=== PATIENT | male | born 1945 | race Caucasian/White ===

== ENCOUNTER 2016-04-05 12:17 | Emergency (ER) | payer MEDICARE ==
[2016-04-05 12:31] LABS: BASOPHIL % 0.3 % (0.0-0.4); Lymphocytes % 22.7 % (24.0-44.0); Mean Corpuscular Hemoglobin 27.9 pg (26-32); Mean Platelet Volume 13.7 fl (6-9.5); Platelet Count 135 K/mm3 (150-450); Red Blood Count 4.51 M/mm3 (4.1-5.6); White Blood Count 11.7 K/mm3 (4.0-10.5)
--- NOTE | 2016-04-05 12:40 | ERPHSYRPT ---
- History of Present Illness Time Seen by Provider: 04/05/16 12:19 Source: patient Patient Subjective Stated Complaint: AT DR CASTILLO'S OFFICE AND BROUGHT TO ER FOR C/O WEAKNESS AND ACHING ALL OVER. SYMPTOMS STARTED THIS AM Triage Nursing Assessment: TO ROOM PER W/C, SKIN PALE, W/D. ASSISTED TO COT PER TWO PEOPLE. PATIENT WEAK, UNSTEADY ON FEET. RESP NONLABORED. Physician History: CC: weakness Hx: 70 y/o patient was here to see Dr Garcia in OP clinic. While waiting he complained to staff of headache, neck pain, general weakness, body aches, pain all over. They felt he was not as alert and in and out of consciousness so brought him to ER. Pt has body aches and pain. Maybe fever. Chronic bowel and urine problems. He was recently admitted for chest pain. He has CKD. No chest pains today. Not particularly short of breath. He lives at home with his . He feels general weakness and malaise. Focuses on headache and neck pain over and over. Timing/Duration: today Severity: moderate, severe Allergies/Adverse Reactions: morphine Adverse Reaction (Severe, Verified 04/05/16 13:06) hallucinations Home Medications: Carvedilol 3.125 mg [Coreg 3.125 MG] 6.25 mg PO BID 03/13/13 [History] Isosorbide Mononitrate [Imdur] 30 mg PO DAILY 03/13/13 [History] Metformin HCl 500 mg [Glucophage 500 MG] 500 mg PO BID 03/13/13 [History] Nitroglycerin 0.4 mg PO DAILY PRN 03/13/13 [History] Aspirin 325 mg PO DAILY 04/14/13 [History] Lisinopril 20 mg [Zestril 20 MG] 40 mg PO DAILY 04/25/13 [History] Clopidogrel Bisulfate 75 mg [PLAVIX 75 MG Tablet] 75 mg PO DAILY 10/29/14 [History] Hydrochlorothiazide 25 mg [hydroDIURIL 25 MG] 25 mg PO DAILY 10/29/14 [ History] Atorvastatin Calcium 80 mg PO DAILY 02/16/15 [History] Ferrous Sulfate 325 mg PO DAILY 02/16/15 [History] Paroxetine HCl [Paxil] 10 mg PO DAILY 02/16/15 [History] Albuterol 2.5 mg/3 ml Neb [Proventil 2.5 mg/3 ml Neb] 2.5 mg IH Q2H/PRN PRN 05/14/15 [History] Amlodipine Besylate 5 mg [Norvasc 5 mg] 5 mg PO DAILY 05/14/15 [History] Folic Acid/Vitamin B Comp W-C [Tracey-Yossi Tablet] 1 mg PO DAILY 05/14/15 [History ] Furosemide 20 mg [Lasix 20 mg] 20 mg PO BID 05/14/15 [History] Glipizide 10 mg [Glucotrol 10 MG] 10 mg PO BID 05/14/15 [History] Hydrocodone/APAP 10/325 mg [[place] 10/325 MG Tablet] 10 mg PO QID 05/14/15 [History] Insulin Glargine [Lantus Insulin] 18 unit SQ HS 02/25/16 [History] Insulin Lispro [Humalog] 10 unit SQ BID 02/25/16 [History] Magnesium Oxide [Magnesium] 400 mg PO BID 02/25/16 [History] Hx Tetanus, Diphtheria Vaccination/Date Given: No Hx Influenza Vaccination/Date Given: Yes Hx Pneumococcal Vaccination/Date Given: Yes - Review of Systems Constitutional: Fatigue, Lethargy, Malaise, Weakness, No Fever, No Chills Eyes: No Symptoms, Vision Changes Ears, Nose, & Throat: No Symptoms Respiratory: No Cough, No Dyspnea Cardiac: No Chest Pain Abdominal/Gastrointestinal: No Abdominal Pain Genitourinary Symptoms: Frequency, No Dysuria Musculoskeletal: Joint Pain, Myalgias, No Fall, No Injury Skin: No Rash Neurological: Headache, No Dizziness, No Focal Weakness, No Parasthesia, No Seizure All Other Systems: Reviewed and Negative - Past Medical History Pertinent Past Medical History: Yes Neurological History: Peripheral Neuropathy ENT History: No Pertinent History Cardiac History: Angina, Congestive Heart Failure, Coronary Artery Disease, Hypertension, Myocardial Infarction ([place]) Respiratory History: Bronchitis, Emphysema, Pneumonia, Other Endocrine Medical History: Diabetes Type II Musculoskeletal History: Arthritis GI Medical History: No Pertinent History History: Renal Disease Psycho-Social History: Depression Male Reproductive Disorders: No Pertinent History Other Medical History: Hx vision problems. Hx chronic kidney disease. DM with uncontrolled sugars - Past Surgical History Past Surgical History: Yes Neuro Surgical History: No Pertinent History Cardiac: CABG, Cardiac Catheterization, Cardiac Stent Respiratory: No Pertinent History Gastrointestinal: Cholecystectomy Genitourinary: No Pertinent History Musculoskeletal: Other Male Surgical History: No Pertinent History Other Surgical History: BILATERAL CAROTID. 5 cardiac stents, hand surg - Social History Smoking Status: Former smoker How long have you smoked: 40 years Exposure to second hand smoke: No Drug Use: none Patient Lives Alone: No - Nursing Vital Signs Nursing Vital Signs: Initial Vital Signs Temperature 97.8 F Temperature Source Rectal Pulse Rate 64 Respiratory Rate 18 Blood Pressure [Right Arm] 111/50 Pain Intensity 9 - Physical Exam General Appearance: alert, obese, other (lethargic and sallow appearance) Eye Exam: PERRL/EOMI Ears, Nose, Throat Exam: moist mucous membranes Neck Exam: supple Respiratory Exam: diminished breath sounds, No respiratory distress Cardiovascular Exam: regular rate/rhythm, bradycardia Gastrointestinal/Abdomen Exam: soft, No tenderness, No distention, No mass, No guarding Male Genitalia Exam: normal genitalia Back Exam: normal inspection Extremity Exam: pedal edema Neurologic Exam: alert, oriented x 3, cooperative, No motor deficits Skin Exam: warm, other (sallow appearance), No rash SpO2 Interpretation: normal SpO2: 96 Oxygen Delivery: Room Air - Course Nursing assessment & vital signs reviewed: Yes EKG Interpreted by Me: RATE (61), Sinus Rhythm, Left [place] Deviation, Right Bundle Branch Block (unchanged from prior) - Radiology Exams cxr X-ray Interpretation: Discussed w/ radiologist, Negative - CT Exams head,cervical CT Interpretation: Negative, Tele-radiologist Report Ordered Tests: Active Orders 24 hr Category Date Time Status Accucheck STAT Care 04/05/16 12:22 Active Codifier STAT Care 04/05/16 12:21 Active Clean Catch Urine Specimen STAT Care 04/05/16 12:19 Active EKG-ER Only STAT Care 04/05/16 12:19 Active IV Insertion STAT Care 04/05/16 12:19 Active Rectal Temperature STAT Care 04/05/16 12:20 Active cath [Cath for Specimen-Straight] STAT Care 04/05/16 14:31 Active CERVICAL SPINE WO CONTRAST [CT] Stat Exams 04/05/16 12:21 Completed CHEST 1 VIEW (PORTABLE) Stat Exams 04/05/16 12:19 Completed HEAD WITHOUT CONTRAST [CT] Stat Exams 04/05/16 12:20 Completed CBC W DIFF Stat Lab 04/05/16 12:20 Completed CMP Stat Lab 04/05/16 12:20 Completed Lactic Acid Urgent Lab 04/05/16 12:40 Completed PROTIME WITH INR Stat Lab 04/05/16 12:20 Completed PTT Stat Lab 04/05/16 12:20 Completed TROPONIN Stat Lab 04/05/16 12:20 Completed UA Stat Lab 04/05/16 12:19 Ordered VENOUS BLOOD GAS Urgent Lab 04/05/16 12:40 Completed Medication Summary Generic Name Dose Route Start Last Admin Trade Name Freq PRN Reason Stop Dose Admin Sodium Chloride 1,000 mls @ 100 mls/hr 04/05/16 14:45 04/05/16 14:37 Sodium Chloride 0.9% 1000 Ml IV 05/05/16 14:44 100 mls/hr .Q10H CHRISTI Administration Discontinued Medications Generic Name Dose Route Start Last Admin Trade Name Freq PRN Reason Stop Dose Admin Sodium Chloride Confirm 04/05/16 14:35 Sodium Chloride 0.9% 1000 Ml Administered 04/05/16 14:36 Dose 1,000 mls @ ud .ROUTE .STK-MED ONE Insulin Aspart 10 unit 04/05/16 14:40 04/05/16 14:49 Novolog Insulin SQ 04/05/16 14:41 10 unit STAT ONE Administration Insulin Aspart Confirm 04/05/16 14:45 Novolog Insulin Administered 04/05/16 14:46 Dose 10 unit .ROUTE .STK-MED ONE Lab/Rad Data: Laboratory Result Diagrams 04/05/16 12:20 04/05/16 12:20 Laboratory Results 04/05/16 04/05/16 04/05/16 Range/Units 12:40 12:40 12:20 WBC (4.0-10.5) K/mm3 RBC (4.1-5.6) M/mm3 Hgb (12.5-18.0) gm/dl Hct (42-50) % MCV (78-100) fl MCH (26-32) pg MCHC (32-36) g/dl RDW (11.5-14.0) % Plt Count (150-450) K/mm3 MPV (6-9.5) fl Gran % (36.0-66.0) % Lymphocytes % (24.0-44.0) % Monocytes % (0.0-12.0) % Eosinophils % (0.00-5.0) % Basophils % (0.0-0.4) % Basophils # (0-0.4) INR 0.97 (0.8-3.0) PTT 27.4 (24.1-36.1) SECONDS VBG pH 7.32 (7.32-7.42) VBG pCO2 at Pat Temp 67 H* (42-55) mm/Hg VBG pO2 at Pat Temp 22 L (25-40) mm/Hg VBG HCO3 34.5 H* (22-28) meq/L VBG O2 Sat (Lauro) 31.5 L (95-100) VBG Base Excess 6.3 H (-2.0-2.0) VBG Hemoglobin 12.7 VBG Carboxyhemoglobin 0.9 (0.0-6.9) % T HGB POC Potassium 5.3 H (3.5-5.1) Sodium (136-145) mEq/L Potassium (3.5-5.1) mEq/L Chloride (98-107) mEq/L Carbon Dioxide (21-32) mEq/L Anion Gap (5-15) MEQ/L BUN (9-20) mg/dL Creatinine (0.55-1.30) mg/dl Estimated GFR ML/MIN Glucose (70-110) MG/DL Lactic Acid 2.8 H (0.4-2.0) Calcium (8.5-10.1) mg/dL Total Bilirubin (0.2-1.0) mg/dL AST (15-37) U/L ALT (12-78) U/L Alkaline Phosphatase (46-116) U/L Troponin I (0.000-0.056) ng/ml Serum Total Protein (6.4-8.2) gm/dL Albumin (3.4-5.0) g/dL 04/05/16 04/05/16 04/05/16 Range/Units 12:20 12:20 12:20 WBC 11.7 H (4.0-10.5) K/mm3 RBC 4.51 (4.1-5.6) M/mm3 Hgb 12.6 (12.5-18.0) gm/dl Hct 40.6 L (42-50) % MCV 90.0 (78-100) fl MCH 27.9 (26-32) pg MCHC 31.0 L (32-36) g/dl RDW 15.0 H (11.5-14.0) % Plt Count 135 L (150-450) K/mm3 MPV 13.7 H (6-9.5) fl Gran % 66.0 (36.0-66.0) % Lymphocytes % 22.7 L (24.0-44.0) % Monocytes % 9.0 (0.0-12.0) % Eosinophils % 2.0 (0.00-5.0) % Basophils % 0.3 (0.0-0.4) % Basophils # 0.03 (0-0.4) INR (0.8-3.0) PTT (24.1-36.1) SECONDS VBG pH (7.32-7.42) VBG pCO2 at Pat Temp (42-55) mm/Hg VBG pO2 at Pat Temp (25-40) mm/Hg VBG HCO3 (22-28) meq/L VBG O2 Sat (Lauro) (95-100) VBG Base Excess (-2.0-2.0) VBG Hemoglobin VBG Carboxyhemoglobin (0.0-6.9) % T HGB POC Potassium (3.5-5.1) Sodium 135 L (136-145) mEq/L Potassium 5.2 H (3.5-5.1) mEq/L Chloride 97 L (98-107) mEq/L Carbon Dioxide 29.7 (21-32) mEq/L Anion Gap 13.0 (5-15) MEQ/L BUN 51 H (9-20) mg/dL Creatinine 2.19 H (0.55-1.30) mg/dl Estimated GFR 32 ML/MIN Glucose 408 H (70-110) MG/DL Lactic Acid (0.4-2.0) Calcium 8.6 (8.5-10.1) mg/dL Total Bilirubin 0.4 (0.2-1.0) mg/dL AST 17 (15-37) U/L ALT 24 (12-78) U/L Alkaline Phosphatase 124 H (46-116) U/L Troponin I 0.023 (0.000-0.056) ng/ml Serum Total Protein 7.2 (6.4-8.2) gm/dL Albumin 3.1 L (3.4-5.0) g/dL - Progress Progress Note: 04/05/16 12:40 He repeatedly complains of head and neck pain so will get CT to rule out ICH. He has body aches but no fever here. 04/05/16 14:[address] Catarino Garcia. Pt had scant urine on weinstein. He appears to be dehydrated. Sugar elevated. Dr Garcia saw pt prior to ER. He advised transfer to [facility] and he made arrangements. Counseled pt/family regarding: lab results, diagnosis, need for follow-up, rad results - Departure Time of Disposition: 14:52 Departure Disposition: Transfer Clinical Impression: Acute kidney injury, Dehydration, Hyperglycemia, Generalized weakness Condition: Fair Critical Care Time: No Referrals: MAO PURCELL [Primary Care Provider] -
[2016-04-05 12:41] LABS: VBG BASE EXCESS 6.3 (-2.0-2.0); VBG CARBOXYHEMOGLOBIN 0.9 % T HGB (0.0-6.9); VBG HCO3- 34.5 meq/L (22-28); VBG HEMOGLOBIN 12.7; VBG O2 SATURATION 31.5 (95-100); VBG POTASSIUM 5.3 (3.5-5.1); VBG pH 7.32 (7.32-7.42)
[2016-04-05 12:49] LABS: INR 0.97 (0.8-3.0); PROTIME 10.9 SECONDS (8.83-12.87)
[2016-04-05 12:51] LABS: PTT 27.4 SECONDS (24.1-36.1)
[2016-04-05 12:59] LABS: ALBUMIN 3.1 g/dL (3.4-5.0); BILIRUBIN,TOTAL 0.4 mg/dL (0.2-1.0); Carbon Dioxide 29.7 mEq/L (21-32); Potassium 5.2 mEq/L (3.5-5.1); Total Protein 7.2 gm/dL (6.4-8.2)
--- NOTE | 2016-04-05 12:59 | XRAY ---
Indication: Headache. No known injury. Multiple contiguous axial images obtained through the head without contrast. Comparison: None Age-appropriate global atrophy and minimal periventricular degenerative micro-ischemia bilaterally. 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 No acute intracranial hemorrhage, hydrocephalus, or mass effect. Bony calvarium intact. Visualized paranasal sinuses and mastoid air cells are pneumatized and clear. 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 CT DI 66.59
--- NOTE | 2016-04-05 13:06 | XRAY ---
Indication: Neck pain. No known injury. Multiple contiguous axial images obtained through the cervical spine. Sagittal and coronal reformatted images obtained. Comparison: None Axial images negative for acute fracture, suspicious bony lesions, or spinal canal stenosis. Mild bilateral degenerative facet hypertrophy greatest at the left C4-C5 level. Sagittal and coronal reformatted images demonstrates mild lordotic straightening, positional versus paraspinal muscular spasm. Minimal C5-C6 disc space narrowing. No acute compression fracture, subluxation, or jumped facet. Normal-appearing craniocervical junction. Visualized noncontrasted soft tissues demonstrates minimal carotid calcifications and previous carotid endarterectomy bilaterally. Thyroid gland also heterogeneous with left lobe calcifications and right lobe enlargement. Base of the brain and lung apices unremarkable. Impression: 1. Lordotic straightening, positional versus paraspinal spasm. Negative for acute fracture/subluxation. 2. Mild degenerative changes. 3. Incidental heterogeneous thyroid gland and right lobe enlargement that should be correlated clinically. Outpatient thyroid sonogram may yield further information. CT DI 134.47
--- NOTE | 2016-04-05 13:08 | XRAY ---
Indication: Weakness. Comparison: February 25, 2016 Portable apical lordotic chest remains clear again with previous CABG surgery. Heart is not enlarged. Bony thorax intact again with mild degenerative changes. No new/acute findings. Impression: Stable nonacute chest with chronic features.
[2016-04-05] MEDS ORDERED: Sodium Chloride 0.9% 1000 ML 1,000 ML ONE (14:35)
[2016-04-05] MEDS ORDERED: NovoLOG Insulin SQ ONE (14:40)
[2016-04-05] MEDS ORDERED: Sodium Chloride 0.9% 1000 ML 1,000 ML IV SCH (14:45)
[2016-04-05] MEDS ORDERED: NovoLOG Insulin ONE (14:45)
[2016-04-05 14:51] VITALS: BP 100/35; PULSE 62
[2016-04-05 14:52] VITALS: O2SAT 96
[2016-04-05 14:53] LABS: Collection Type CATH
[2016-04-05 14:54] LABS: Bacteria FEW /HPF (NEGATIVE); COMPLETE URINE MICROSCOPIC? YES; Epithelial Cells RARE /HPF (FEW); WBC 0-2 /HPF (0-5)
== END 2016-04-05 15:51 | disposition short-term general hospital (02) ==
LOC: ED 12:17
DX: N17.9 Acute kidney failure, unspecified (principal); E86.0 Dehydration; R73.9 Hyperglycemia, unspecified; R53.1 Weakness; Z79.899 Other long term (current) drug therapy; Z79.84 Long term (current) use of oral hypoglycemic drugs; Z79.4 Long term (current) use of insulin; I50.9 Heart failure, unspecified; I25.10 Atherosclerotic heart disease of native coronary artery without angina pectoris; I10 Essential (primary) hypertension; I25.2 Old myocardial infarction; E11.9 Type 2 diabetes mellitus without complications
CPT/HCPCS: 36000; 36415; 70450; 71010; 72125; 80053; 81000; 82805; 82962; 83605; 84484; 85025; 85610; 85730; 87631; 93005; 93041; 96360; 96372; 99284; 99285; P9612

== ENCOUNTER 2016-05-26 09:22 | Emergency (ER) | payer MEDICARE ==
--- NOTE | 2016-05-26 09:57 | ERPHSYRPT ---
- History of Present Illness Time Seen by Provider: 05/26/16 09:40 Source: patient Exam Limitations: no limitations Patient Subjective Stated Complaint: PT STATES THAT HE HAS A "KNOT" ON HIS "PRIVATE PARTS". STATES "ITS BEEN THERE A FEW DAYS BUT I FIGURED IT WOULD GO AWAY" BUT STATES NOW ITS MAKING HIM NAUSEATED. Triage Nursing Assessment: PT ALERT WARM AND DRY RRESP EASY NON LABORED PT AMBUALTED FROM WHEELCHAIR TO BED WITHOUT DIFFICULTY. WOUND NOTED TO RIGHT TESTICLE AREA NO REDNESS OR DRAINAGE NOTED. Timing/Duration: day(s) (2) Activites at Onset: none Quality: sharpness Onset Location: scrotal Pain Radiation: suprapubic Severity of Pain-Max: moderate Severity of Pain-Current: moderate Modifying Factors: Improves With: urinating (incontinence nocturnal) Associated Symptoms: abdominal pain (suprapubic), nausea Sexual intercourse history: non-contributory Allergies/Adverse Reactions: morphine Adverse Reaction (Severe, Verified 04/05/16 13:06) hallucinations Home Medications: Carvedilol 3.125 mg [Coreg 3.125 MG] 12.5 mg PO BID 03/13/13 [History] Isosorbide Mononitrate [Imdur] 30 mg PO DAILY 03/13/13 [History] Metformin HCl 500 mg [Glucophage 500 MG] 500 mg PO BID 03/13/13 [History] Nitroglycerin 0.4 mg PO DAILY PRN 03/13/13 [History] Aspirin 325 mg PO DAILY 04/14/13 [History] Lisinopril 20 mg [Zestril 20 MG] 20 mg PO DAILY 04/25/13 [History] Clopidogrel Bisulfate 75 mg [PLAVIX 75 MG Tablet] 75 mg PO DAILY 10/29/14 [History] Hydrochlorothiazide 25 mg [hydroDIURIL 25 MG] 25 mg PO DAILY 10/29/14 [ History] Atorvastatin Calcium 80 mg PO DAILY 02/16/15 [History] Ferrous Sulfate 325 mg PO BID 02/16/15 [History] Paroxetine HCl [Paxil] 20 mg PO DAILY 02/16/15 [History] Albuterol 2.5 mg/3 ml Neb [Proventil 2.5 mg/3 ml Neb] 2.5 mg IH Q2H/PRN PRN 05/14/15 [History] Amlodipine Besylate 5 mg [Norvasc 5 mg] 2.5 mg PO DAILY 05/14/15 [History] Folic Acid/Vitamin B Comp W-C [Tracey-Yossi Tablet] 1 mg PO DAILY 05/14/15 [History ] Furosemide 20 mg [Lasix 20 mg] 20 mg PO BID 05/14/15 [History] Glipizide 10 mg [Glucotrol 10 MG] 10 mg PO BID 05/14/15 [History] Hydrocodone/APAP 10/325 mg [[place] 10/325 MG Tablet] 10 mg PO QID 05/14/15 [History] Insulin Glargine [Lantus Insulin] 18 unit SQ HS 02/25/16 [History] Insulin Lispro [Humalog] 10 unit SQ TID 02/25/16 [History] Magnesium Oxide [Magnesium] 400 mg PO BID 02/25/16 [History] Hx Tetanus, Diphtheria Vaccination/Date Given: Yes Hx Influenza Vaccination/Date Given: Yes Hx Pneumococcal Vaccination/Date Given: No Immunizations Up to Date: Yes - Past Medical History Pertinent Past Medical History: Yes Neurological History: Peripheral Neuropathy ENT History: No Pertinent History Cardiac History: Angina, Congestive Heart Failure, Coronary Artery Disease, Hypertension, Myocardial Infarction ([place]) Respiratory History: Bronchitis, Emphysema, Pneumonia, Other Endocrine Medical History: Diabetes Type II Musculoskeletal History: Arthritis GI Medical History: No Pertinent History History: Renal Disease Psycho-Social History: Depression Male Reproductive Disorders: No Pertinent History Other Medical History: Hx vision problems. Hx chronic kidney disease. DM with uncontrolled sugars - Past Surgical History Past Surgical History: Yes Neuro Surgical History: No Pertinent History Cardiac: CABG, Cardiac Catheterization, Cardiac Stent Respiratory: No Pertinent History Gastrointestinal: Cholecystectomy Genitourinary: No Pertinent History Musculoskeletal: Other Male Surgical History: No Pertinent History Other Surgical History: BILATERAL CAROTID. 5 cardiac stents, hand surg - Social History Smoking Status: Never smoker How long have you smoked: 40 years Exposure to second hand smoke: No Drug Use: marijuana Patient Lives Alone: No - Review of Systems Constitutional: No Symptoms Eyes: No Symptoms Ears, Nose, & Throat: No Symptoms Respiratory: No Symptoms Cardiac: No Symptoms Abdominal/Gastrointestinal: Abdominal Pain, Nausea, No Vomiting, No Diarrhea, No Constipation Genitourinary Symptoms: Dysuria, Incontinence, Other (3 cm diameter tender, firm nodule right scrotum. No erythema or pustule.) Musculoskeletal: No Symptoms Skin: No Symptoms Neurological: No Symptoms Psychological: No Symptoms Endocrine: No Symptoms Hematologic/Lymphatic: No Symptoms Immunological/Allergic: No Symptoms - Nursing Vital Signs Nursing Vital Signs: Initial Vital Signs Temperature 98.3 F Temperature Source Oral Pulse Rate 59 Respiratory Rate 18 Blood Pressure [Right Arm] 131/43 - Physical Exam General Appearance: moderate distress Eye Exam: eyes nml inspection Ears, Nose, Throat Exam: normal ENT inspection, pharynx normal Neck Exam: normal inspection, non-tender, supple, full range of motion Respiratory Exam: normal breath sounds, lungs clear Cardiovascular Exam: regular rate/rhythm, normal heart sounds, normal peripheral pulses Gastrointestinal/Abdomen Exam: soft, normal bowel sounds, tenderness (suprapubic ) Male Genital Exam: scrotal swellling (and tender nodule paratesticular on right) Extremity Exam: normal range of motion, pelvis stable, pedal edema (2+) Skin Exam: normal color, warm, dry SpO2 Interpretation: normal SpO2: 95 Oxygen Delivery: Room Air - Course Nursing assessment & vital signs reviewed: Yes - Radiology Ultrasound Exam Scrotal Ultrasound: tele radiology report ([id number] SQ nodule , possibly sebaceous cyst right scrotum. ) Ordered Tests: Active Orders 24 hr Category Date Time Status TESTICLE [US] Stat Exams 05/26/16 09:57 Completed CBC W DIFF Stat Lab 05/26/16 10:35 Completed CMP Stat Lab 05/26/16 10:35 Received NT PRO BNP Stat Lab 05/26/16 10:35 Received UA W/ MICROSCOPIC Stat Lab 05/26/16 10:15 Completed UA W/RFX UR CULTURE Stat Lab 05/26/16 10:15 Completed Lab/Rad Data: Laboratory Result Diagrams 05/26/16 10:35 Laboratory Results 05/26/16 05/26/16 Range/Units 10:35 10:15 WBC 9.1 (4.0-10.5) K/mm3 RBC 4.38 (4.1-5.6) M/mm3 Hgb 12.3 L (12.5-18.0) gm/dl Hct 39.2 L (42-50) % MCV 89.5 (78-100) fl MCH 28.0 (26-32) pg MCHC 31.4 L (32-36) g/dl RDW 14.8 H (11.5-14.0) % Plt Count 131 L (150-450) K/mm3 MPV 13.3 H (6-9.5) fl Gran % 65.2 (36.0-66.0) % Lymphocytes % 21.2 L (24.0-44.0) % Monocytes % 11.0 (0.0-12.0) % Eosinophils % 2.3 (0.00-5.0) % Basophils % 0.3 (0.0-0.4) % Basophils # 0.03 (0-0.4) Ur Collection Type VOID Urine Color YELLOW (YELLOW) Urine Appearance CLEAR (CLEAR) Urine pH 7.0 (5-6) Ur Specific [place] 1.015 (1.005-1.025) Urine Protein 30 (Negative) Urine Glucose (UA) 100 (NEGATIVE) mg/dL Urine Ketones NEGATIVE (NEGATIVE) Urine Nitrite NEGATIVE (NEGATIVE) Urine Bilirubin NEGATIVE (NEGATIVE) Urine Urobilinogen 0.2 (0-1) mg/dL Urine WBC (Auto) NEGATIVE (NEGATIVE) Urine RBC (Auto) NEGATIVE (0-5) Timi/ul Ur Epithelial Cells RARE (FEW) /HPF Specimen Received 05/26/16 1030 - Progress Progress: improved Discussed with : Other (Dr. Muniz/Urologist for F/U today or tomorrow. Office contacted for referral.) Counseled pt/family regarding: lab results, diagnosis, need for follow-up, rad results - Departure Time of Disposition: 11:00 Departure Disposition: Home Clinical Impression: Scrotal cyst Condition: Stable Critical Care Time: No Prescriptions: Ciprofloxacin HCl 500 mg [Cipro 500 MG] 1 tab PO BID #14 tablet
[2016-05-26 10:47] LABS: COMPLETE URINE MICROSCOPIC? YES; Collection Type VOID
[2016-05-26 10:53] LABS: BASOPHIL % 0.3 % (0.0-0.4); Eosinophil % 2.3 % (0.00-5.0); Granulocytes % 65.2 % (36.0-66.0); Lymphocytes % 21.2 % (24.0-44.0); Mean Cell Volume 89.5 fl (78-100); Mean Platelet Volume 13.3 fl (6-9.5); Platelet Count 131 K/mm3 (150-450); Red Blood Count 4.38 M/mm3 (4.1-5.6); Red Cell Distribution Width 14.8 % (11.5-14.0); White Blood Count 9.1 K/mm3 (4.0-10.5)
--- NOTE | 2016-05-26 10:58 | XRAY ---
Indication: Right-sided superior lateral pain and knot. Two-dimensional testicular sonogram performed. Comparison: None Both testicles homogeneous in echogenicity with normal color flow. Right testicle measures 2.4 x 2.4 x 2.4 cm and the left measures 4.0 x 1.7 x 3.0 cm. No suspicious interest/extratesticular mass or hydrocele. Left and right epididymis sonographically unremarkable. There is a subcutaneous well-circumscribed hypoechogenicity in the right scrotum measuring 8 x 10 x 11 mm without abnormal color flow or posterior shadowing. It does demonstrate some through transmission suggesting fluid component, possible sebaceous cyst. Impression: 1. Right scrotum small subcutaneous hypoechogenicity as detailed, possible sebaceous cyst. 2. Remaining testicular sonogram is negative.
[2016-05-26 11:01] LABS: Epithelial Cells RARE /HPF (FEW)
[2016-05-26 11:02] LABS: ADD URINE CULTURE? NO (NO)
[2016-05-26 11:08] VITALS: O2SAT 95
[2016-05-26] MEDS ORDERED: NORCO 5/325 MG PO ONE (11:08)
[2016-05-26] MEDS ORDERED: Cipro 500 MG PO ONE (11:10)
[2016-05-26] MEDS ORDERED: Cipro 500 MG ONE (11:19)
[2016-05-26] MEDS ORDERED: NORCO 5/325 MG ONE (11:19)
[2016-05-26 11:23] LABS: ALBUMIN 3.3 g/dL (3.4-5.0); ANION GAP 12.1 MEQ/L (5-15); BILIRUBIN,TOTAL 0.3 mg/dL (0.2-1.0); Carbon Dioxide 31.9 mEq/L (21-32); Potassium 5.1 mEq/L (3.5-5.1); Total Protein 7.5 gm/dL (6.4-8.2)
[2016-05-26] MEDS ORDERED: Lasix 40 MG PO ONE (11:28)
[2016-05-26 11:43] VITALS: BP 131/68; PULSE 62
== END 2016-05-26 11:55 | disposition home or self-care (01) ==
LOC: ED 09:22
DX: L72.9 Follicular cyst of the skin and subcutaneous tissue, unspecified (principal); Z79.84 Long term (current) use of oral hypoglycemic drugs; Z79.4 Long term (current) use of insulin; Z79.899 Other long term (current) drug therapy; R10.9 Unspecified abdominal pain; R11.0 Nausea; I50.9 Heart failure, unspecified; I25.10 Atherosclerotic heart disease of native coronary artery without angina pectoris; I10 Essential (primary) hypertension; I25.2 Old myocardial infarction; E11.9 Type 2 diabetes mellitus without complications
CPT/HCPCS: 36415; 76870; 80053; 81000; 83880; 85025; 99284; A9270-GY

== ENCOUNTER 2016-07-15 21:47 | Inpatient (IN) | payer MEDICARE ==
[2016-07-15] MEDS ORDERED: DUONEB 0.5-3 MG/3 ml Neb IH ONE ×2 (22:44→22:57)
[2016-07-15] MEDS ORDERED: Pepcid 20 MG VIAL IV ONE ×2 (22:44→22:51)
[2016-07-15] MEDS ORDERED: TYLENOL 325 MG PO ONE (22:45)
[2016-07-15] MEDS ORDERED: solu-MEDROL 125 MG IV ONE (22:45)
--- NOTE | 2016-07-15 22:50 | ERPHSYRPT ---
- History of Present Illness Time Seen by Provider: 07/15/16 22:31 Source: patient, family, EMS Patient Subjective Stated Complaint: pt states he has been sob for about a week. states he thinks he has pneumonia Triage Nursing Assessment: pt alert and oriented, answers questions approp. respirations nonlabored. lungs sounds diminished. sinus rhythm on monitor at 64. Physician History: CC: cough Hx: 71 y/o patient of Dr Rouse with hx of DM, COPD, heart disease. He has increasing cough, shortness of breath, malaise over the past week. Sweating at night. Now has some right and left abdominal pains. Constipation and some rectal pains. Quit smoking 5 years ago. Shortness of breath has worsened so he came to ER. Timing/Duration: week(s) (1) Allergies/Adverse Reactions: morphine Adverse Reaction (Severe, Verified 04/05/16 13:06) hallucinations Home Medications: Carvedilol 3.125 mg [Coreg 3.125 MG] 12.5 mg PO BID 03/13/13 [History] Isosorbide Mononitrate [Imdur] 30 mg PO DAILY 03/13/13 [History] Nitroglycerin 0.4 mg PO UD PRN 03/13/13 [History] Aspirin 325 mg PO DAILY 04/14/13 [History] Lisinopril 20 mg [Zestril 20 MG] 40 mg PO DAILY 04/25/13 [History] Clopidogrel Bisulfate 75 mg [PLAVIX 75 MG Tablet] 75 mg PO DAILY 10/29/14 [History] Hydrochlorothiazide 25 mg [hydroDIURIL 25 MG] 25 mg PO DAILY 10/29/14 [ History] Atorvastatin Calcium 80 mg PO DAILY 02/16/15 [History] Albuterol 2.5 mg/3 ml Neb [Proventil 2.5 mg/3 ml Neb] 2.5 mg IH Q2H/PRN PRN 05/14/15 [History] Amlodipine Besylate 5 mg [Norvasc 5 mg] 5 mg PO DAILY 05/14/15 [History] Furosemide 20 mg [Lasix 20 mg] 20 mg PO BID 05/14/15 [History] Hydrocodone/APAP 10/325 mg [Marina 10/325 MG Tablet] 10 mg PO QID PRN 05/13 [History] Insulin Lispro [Humalog] 10 unit SQ TID 02/25/16 [History] Magnesium Oxide [Magnesium] 400 mg PO BID 02/25/16 [History] Tamsulosin HCl 0.4 mg [Flomax 0.4 MG] 0.4 mg PO DAILY 07/15/16 [History] Hx Tetanus, Diphtheria Vaccination/Date Given: Yes Hx Influenza Vaccination/Date Given: Yes Hx Pneumococcal Vaccination/Date Given: No Immunizations Up to Date: Yes - Review of Systems Constitutional: Chills, Fatigue, Malaise, Weakness, No Fever Eyes: No Symptoms Ears, Nose, & Throat: No Symptoms Respiratory: Cough, Dyspnea, Wheezing Cardiac: No Chest Pain Abdominal/Gastrointestinal: Abdominal Pain, Constipation Genitourinary Symptoms: No Dysuria Musculoskeletal: No Back Pain Skin: No Rash Neurological: Headache, No Dizziness, No Focal Weakness, No Parasthesia All Other Systems: Reviewed and Negative - Past Medical History Pertinent Past Medical History: Yes Neurological History: Peripheral Neuropathy ENT History: No Pertinent History Cardiac History: Angina, Congestive Heart Failure, Coronary Artery Disease, Hypertension, Myocardial Infarction ([place]) Respiratory History: Bronchitis, COPD, Emphysema, Pneumonia, Other Endocrine Medical History: Diabetes Type II Musculoskeletal History: Arthritis GI Medical History: No Pertinent History History: Renal Disease Psycho-Social History: Depression Male Reproductive Disorders: No Pertinent History Other Medical History: Hx vision problems. Hx chronic kidney disease. DM with uncontrolled sugars - Past Surgical History Past Surgical History: Yes Neuro Surgical History: No Pertinent History Cardiac: CABG, Cardiac Catheterization, Cardiac Stent Respiratory: No Pertinent History Gastrointestinal: Cholecystectomy Genitourinary: No Pertinent History Musculoskeletal: Other Male Surgical History: No Pertinent History Other Surgical History: BILATERAL CAROTID. 5 cardiac stents, hand surg - Social History Smoking Status: Former smoker How long have you smoked: 40 years Exposure to second hand smoke: No Drug Use: none Patient Lives Alone: No - Nursing Vital Signs Nursing Vital Signs: Initial Vital Signs Temperature 98.3 F Temperature Source Oral Pulse Rate 57 Respiratory Rate 17 Blood Pressure [Left Arm] 114/53 Pain Intensity 4 - Physical Exam General Appearance: alert, obese, other (pleasant man) Eye Exam: PERRL/EOMI Ears, Nose, Throat Exam: dry mucous membranes Neck Exam: normal inspection, supple Respiratory Exam: diminished breath sounds, wheezing, No respiratory distress Cardiovascular Exam: regular rate/rhythm, No murmur Gastrointestinal/Abdomen Exam: soft, No tenderness, No distention Male Genitalia Exam: normal genitalia Back Exam: normal inspection, normal range of motion Extremity Exam: pedal edema, No calf tenderness Neurologic Exam: alert, oriented x 3, cooperative, sensation nml, No motor deficits Skin Exam: warm, dry, No rash SpO2 Interpretation: normal SpO2: 97 Oxygen Delivery: Nasal Cannula - Course Nursing assessment & vital signs reviewed: Yes EKG Interpreted by Me: RATE (59), Sinus Shree, NORMAL AXIS, NORMAL INTERVALS ( QTc 426), Right Bundle Branch Block - Radiology Exams cxr X-ray Interpretation: Reviewed by me (CM, post sternotomy) - CT Exams abd/pelvis CT Interpretation: Tele-radiologist Report (no acute) Ordered Tests: Active Orders 24 hr Category Date Time Status Clinical Auditor STAT Care 07/15/16 22:44 Active Clean Catch Urine Specimen STAT Care 07/15/16 22:44 Active EKG-ER Only STAT Care 07/15/16 22:44 Active IV Insertion STAT Care 07/15/16 22:44 Active NPO (ED) STAT Care 07/15/16 22:44 Active Oxygen-ED Only NASAL CANNULA 2 lpm Care 07/15/16 22:44 Active Pulse Oximetry (ED) STAT Care 07/15/16 22:44 Active ABDOMEN AND PELVIS W/0 CONTRAS [CT] Stat Exams 07/15/16 22:46 Taken CHEST 1 VIEW (PORTABLE) Stat Exams 07/15/16 22:45 Taken BLOOD CULTURE Stat Lab 07/15/16 23:04 Received CBC W DIFF Stat Lab 07/15/16 22:50 Completed CMP Stat Lab 07/15/16 22:50 Completed Lactic Acid Urgent Lab 07/15/16 23:00 Completed UA Stat Lab 07/15/16 22:45 Ordered VENOUS BLOOD GAS Urgent Lab 07/15/16 23:00 Completed Respiratory Nebulizer STAT RT 07/15/16 22:45 Completed Medication Summary Discontinued Medications Generic Name Dose Route Start Last Admin Trade Name Freq PRN Reason Stop Dose Admin Acetaminophen 650 mg 07/15/16 22:45 07/15/16 22:56 Tylenol 325 Mg PO 07/15/16 22:46 650 mg STAT ONE Administration Acetaminophen Confirm 07/15/16 22:51 Tylenol 325 Mg Administered 07/15/16 22:52 Dose 650 mg .ROUTE .STK-MED ONE Albuterol/Ipratropium 3 ml 07/15/16 22:44 07/15/16 22:59 Duoneb 0.5-3 Mg/3 Ml Neb IH 07/15/16 22:45 3 ml STAT ONE Administration Albuterol/Ipratropium Confirm 07/15/16 22:57 Duoneb 0.5-3 Mg/3 Ml Neb Administered 07/15/16 22:58 Dose 3 ml IH .STK-MED ONE Famotidine 20 mg 07/15/16 22:44 07/15/16 22:56 Pepcid 20 Mg Vial IV 07/15/16 22:45 20 mg STAT ONE Administration Famotidine Confirm 07/15/16 22:51 Pepcid 20 Mg Vial Administered 07/15/16 22:52 Dose 20 mg IV .STK-MED ONE Ceftriaxone Sodium/Dextrose 1 g in 50 mls @ 100 mls/hr 07/16/16 00:25 00:31 Rocephin 1 Gm-D5w 50 Ml Bag IV 07/16/16 00:54 100 mls/hr STAT ONE Administration Ceftriaxone Sodium/Dextrose Confirm 07/16/16 00:30 Rocephin 1 Gm-D5w 50 Ml Bag Administered 07/16/16 00:31 Dose 1 g in 50 mls @ ud IV .STK-MED ONE Methylprednisolone Sodium Succinate 125 mg 07/15/16 22:45 07/15/16 22:56 Solu-Medrol 125 Mg IV 07/15/16 22:46 125 mg STAT ONE Administration Methylprednisolone Sodium Succinate Confirm 07/15/16 22:51 Solu-Medrol 125 Mg Administered 07/15/16 22:52 Dose 125 mg .ROUTE .STK-MED ONE Lab/Rad Data: Laboratory Result Diagrams 07/15/16 22:50 07/15/16 22:50 Laboratory Results 07/15/16 07/15/16 07/15/16 Range/Units 23:00 22:50 22:50 WBC 11.7 H (4.0-10.5) K/mm3 RBC 4.23 (4.1-5.6) M/mm3 Hgb 12.0 L (12.5-18.0) gm/dl Hct 38.1 L (42-50) % MCV 90.1 (78-100) fl MCH 28.3 (26-32) pg MCHC 31.5 L (32-36) g/dl RDW 14.9 H (11.5-14.0) % Plt Count 142 L (150-450) K/mm3 MPV 13.6 H (6-9.5) fl Gran % 73.6 H (36.0-66.0) % Lymphocytes % 12.6 L (24.0-44.0) % Monocytes % 12.5 H (0.0-12.0) % Eosinophils % 1.0 (0.00-5.0) % Basophils % 0.3 (0.0-0.4) % Basophils # 0.03 (0-0.4) VBG pH 7.33 (7.32-7.42) VBG pCO2 at Pat Temp 53 (42-55) mm/Hg VBG pO2 at Pat Temp 37 (25-40) mm/Hg VBG HCO3 27.9 (22-28) meq/L VBG O2 Sat (Lauro) 74.8 L (95-100) VBG Base Excess 1.2 (-2.0-2.0) VBG Hemoglobin 11.7 VBG Carboxyhemoglobin 1.9 (0.0-6.9) % T HGB POC Potassium 5.9 H (3.5-5.1) Sodium 134 L (136-145) mEq/L Potassium 5.8 H (3.5-5.1) mEq/L Chloride 99 (98-107) mEq/L Carbon Dioxide 28.8 (21-32) mEq/L Anion Gap 11.8 (5-15) MEQ/L BUN 92 H (9-20) mg/dL Creatinine 2.79 H (0.55-1.30) mg/dl Estimated GFR 24 ML/MIN Glucose 291 H (70-110) MG/DL Lactic Acid 1.6 (0.4-2.0) Calcium 9.2 (8.5-10.1) mg/dL Total Bilirubin 0.4 (0.2-1.0) mg/dL AST 15 (15-37) U/L ALT 16 (12-78) U/L Alkaline Phosphatase 94 (46-116) U/L Serum Total Protein 7.7 (6.4-8.2) gm/dL Albumin 3.0 L (3.4-5.0) g/dL - Progress Progress Note: 07/16/16 01:06 Pt has worsened bun, creat representing worsened renal failure. He has COPD exacerbation without pneumonia. Called Dr Corrigan for Padma and will admit to [facility] for IVF, copd treatment, and monitoring of renal failure. Discussed with : Cnidy Will see patient in: hospital (full admit) Counseled pt/family regarding: lab results, diagnosis, need for follow-up, rad results - Departure Time of Disposition: 01:07 Departure Disposition: In-patient Admission Clinical Impression: COPD exacerbation, Acute on chronic renal failure Condition: Fair Critical Care Time: No Referrals: MAO ROUSE [Primary Care Provider] -
[2016-07-15] MEDS ORDERED: solu-MEDROL 125 MG ONE (22:51)
[2016-07-15] MEDS ORDERED: TYLENOL 325 MG ONE (22:51)
[2016-07-15 23:05] LABS: Lactic Acid 1.6 (0.4-2.0); VBG BASE EXCESS 1.2 (-2.0-2.0); VBG CARBOXYHEMOGLOBIN 1.9 % T HGB (0.0-6.9); VBG HCO3- 27.9 meq/L (22-28); VBG HEMOGLOBIN 11.7; VBG O2 SATURATION 74.8 (95-100); VBG POTASSIUM 5.9 (3.5-5.1); VBG pH 7.33 (7.32-7.42)
[2016-07-15 23:08] LABS: BASOPHIL % 0.3 % (0.0-0.4); Granulocytes % 73.6 % (36.0-66.0); Lymphocytes % 12.6 % (24.0-44.0); Mean Cell Volume 90.1 fl (78-100); Mean Platelet Volume 13.6 fl (6-9.5); Monocytes % 12.5 % (0.0-12.0); Platelet Count 142 K/mm3 (150-450); Red Blood Count 4.23 M/mm3 (4.1-5.6); Red Cell Distribution Width 14.9 % (11.5-14.0); White Blood Count 11.7 K/mm3 (4.0-10.5)
[2016-07-15 23:09] LABS: Mean Corpuscular Hemoglobin 28.3 pg (26-32)
[2016-07-15 23:28] LABS: ANION GAP 11.8 MEQ/L (5-15); BILIRUBIN,TOTAL 0.4 mg/dL (0.2-1.0); Carbon Dioxide 28.8 mEq/L (21-32); Potassium 5.8 mEq/L (3.5-5.1); Total Protein 7.7 gm/dL (6.4-8.2)
[2016-07-16] MEDS ORDERED: ROCEPHIN 1 Gm-D5w 50 ml Bag** 1 G/50 ML IVPB IV ONE ×2 (00:25→00:30)
[2016-07-16] MEDS ORDERED: solu-MEDROL 125 MG IV SCH ×2 (01:35→07:30)
[2016-07-16] MEDS ORDERED: TYLENOL 325 MG PO PRN (01:35)
[2016-07-16] MEDS ORDERED: Sodium Chloride 0.9% 1000 ML 1,000 ML IV SCH (01:35)
[2016-07-16] MEDS ORDERED: DUONEB 0.5-3 MG/3 ml Neb IH ONE ×3 (02:44→20:05)
[2016-07-16] MEDS: DUONEB 0.5-3 MG/3 ml Neb IH SCH ×2 (03:07→06:53)
[2016-07-16 03:41] LABS: Collection Type VOID
[2016-07-16 03:42] LABS: COMPLETE URINE MICROSCOPIC? NO
[2016-07-16 06:34] LABS: ANION GAP 13.7 MEQ/L (5-15); Carbon Dioxide 25.4 mEq/L (21-32)
[2016-07-16 07:04] LABS: Potassium 7.5 mEq/L (3.5-5.1)
[2016-07-16] MEDS ORDERED: NovoLOG Insulin SQ ONE (07:12)
[2016-07-16] MEDS ORDERED: Kayexylate 15 GM/60 ML PO ONE (07:12)
[2016-07-16] MEDS ORDERED: Sodium Chloride 0.9% 500 ML 500 ML IV ONE ×2 (07:14→07:23)
[2016-07-16] MEDS ORDERED: NovoLOG Insulin ONE (07:23)
[2016-07-16] MEDS ORDERED: Kayexylate 15 GM/60 ML ONE (07:24)
--- NOTE | 2016-07-16 08:20 | XRAY ---
Indication: Lower abdominal and rectal pain. Multiple contiguous axial images obtained through the abdomen and pelvis without contrast as ordered. Comparison: April 14, 2013. Lung bases demonstrates new peripheral right lower lobe hazy interstitial alveolar opacity. No consolidation or effusion. Heart is not enlarged. Noncontrasted stomach and bowel loops appear nonobstructed. Mild diffuse scattered colonic fecal debris throughout more than before. Again mild sigmoid diverticulosis without diverticulitis. Normal appendix. There has been interval cholecystectomy. No free fluid/air. Stable exophytic left lower pole renal cysts. Remaining liver, pancreas, spleen, adrenal glands, kidneys, ureters, and bladder appear unremarkable for noncontrast exam. Minimal aortoiliac calcifications without AAA. Osseous structures intact again with lumbar degenerative changes greatest at the L4-L5 level. Impression: 1. Mild fecal stasis without obstruction. Stable sigmoid diverticulosis. 2. Stable left renal cysts. 3. New right lung base peripheral hazy interstitial alveolar opacity. 4. No new/acute intra-abdominal/pelvic abnormalities on this noncontrast exam. Comment: Preliminary interpretation was made by [facility]. No discrepancy. CTDI 28.13
--- NOTE | 2016-07-16 08:21 | XRAY ---
Indication: Short of breath. Comparison: April 05, 2016. Portable chest again hyperinflated with tiny calcified granulomas and previous cardiothoracic surgery. No focal infiltrate, consolidation, or large effusion. Heart is not enlarged for AP portable technique. Bony thorax intact again with mild degenerative changes. Impression: Stable nonacute chest with chronic features.
[2016-07-16] MEDS ORDERED: Sodium Chloride 0.9% 1000 ML 1,000 ML IV STA (08:38)
[2016-07-16] MEDS ORDERED: NovoLIN R IV ONE (08:41)
--- NOTE | 2016-07-16 08:52 | PCM.HP ---
History of Present Illness - Chief Complaint Chief Complaint: Shortness of Breath Date: 07/16/16 History of Present Illness: is a 71 year old male. increasing weakness and shortness of breath for the last several days. he has also been unable to get his sugar under control at home. He presented to ED and was diagnosed with acute on chronic renal failure due to dehydration and copd exacerbation. He was only on normal saline at 75/hr and given solumedrol 125 mg at admission about 4 hours after admission labs showed glucose of 599 and K of 7.5. He was not experiencing any chest pain. He is now having a slight headache but states he has had a bowel movement and urinated more this morning already then he has in the last several days. he has had the kayexalate. His breathing is improved on the oxygen. he has not had any swelling. - Review of Systems Constitutional: Fatigue, No Fever, No Chills Eyes: No Symptoms Ears, Nose, & Throat: No Symptoms Respiratory: Cough, Short Of Breath Cardiac: No Chest Pain, No Edema, No Syncope Abdominal/Gastrointestinal: Abdominal Pain, No Nausea, No Vomiting, No Diarrhea Genitourinary Symptoms: No Dysuria Musculoskeletal: No Back Pain, No Neck Pain Skin: No Rash Neurological: No Dizziness, No Focal Weakness, No Sensory Changes Psychological: No Symptoms Endocrine: No Symptoms Hematologic/Lymphatic: No Symptoms Immunological/Allergic: No Symptoms Medications & Allergies Home Medications: Home Medication List Carvedilol 3.125 mg [Coreg 3.125 MG] 12.5 mg PO BID 03/13/13 [History Confirmed 07/15/16] Isosorbide Mononitrate [Imdur] 30 mg PO DAILY 03/13/13 [History Confirmed ] Nitroglycerin 0.4 mg PO UD PRN 03/13/13 [History Confirmed 07/16/16] Aspirin 325 mg PO DAILY 04/14/13 [History Confirmed 07/15/16] Lisinopril 20 mg [Zestril 20 MG] 40 mg PO DAILY 04/25/13 [History Confirmed 07/15/16] Clopidogrel Bisulfate 75 mg [PLAVIX 75 MG Tablet] 75 mg PO DAILY 10/29/14 [History Confirmed 07/15/16] Hydrochlorothiazide 25 mg [hydroDIURIL 25 MG] 25 mg PO DAILY 10/29/14 [ History Confirmed 07/15/16] Atorvastatin Calcium 80 mg PO DAILY 02/16/15 [History Confirmed 07/15/16] Albuterol 2.5 mg/3 ml Neb [Proventil 2.5 mg/3 ml Neb] 2.5 mg IH Q2H/PRN PRN 05/14/15 [History Confirmed 07/15/16] Amlodipine Besylate 5 mg [Norvasc 5 mg] 5 mg PO DAILY 05/14/15 [History Confirmed 07/15/16] Furosemide 20 mg [Lasix 20 mg] 20 mg PO BID 05/14/15 [History Confirmed ] Hydrocodone/APAP 10/325 mg [Bussey 10/325 MG Tablet] 10 mg PO QID PRN 05/13 [History Confirmed 07/15/16] Insulin Lispro [Humalog] 26 unit SQ TID 02/25/16 [History Confirmed 07/16/16] Magnesium Oxide [Magnesium] 400 mg PO BID 02/25/16 [History Confirmed 07/15/16] Tamsulosin HCl 0.4 mg [Flomax 0.4 MG] 0.4 mg PO DAILY 07/15/16 [History Confirmed 07/15/16] Insulin Glargine [Lantus Insulin] 25 unit SQ QHS 07/16/16 [History Confirmed 07/16/16] Allergies/Adverse Reactions: Allergies Allergy/AdvReac Type Severity Reaction Status Date / Time morphine AdvReac Severe Verified 04/05/16 13:06 - Past Medical History Past Medical History: Yes Neurological History: Peripheral Neuropathy ENT History: No Pertinent History Cardiac History: Angina, Congestive Heart Failure, Coronary Artery Disease, Hypertension, Myocardial Infarction ([place]) Respiratory History: Bronchitis, COPD, Emphysema, Pneumonia, Other Endocrine Medical History: Diabetes Type II Musculoskelatal History: Arthritis GI Medical History: No Pertinent History History: Renal Disease Pyscho-Social History: Depression Male Reproductive Disorders: No Pertinent History Comment: Hx vision problems. Hx chronic kidney disease. DM with uncontrolled sugars - Past Surgical History Past Surgical History: Yes Neuro Surgical History: No Pertinent History Cardiac History: CABG, Cardiac Catheterization, Cardiac Stent Respiratory Surgery: No Pertinent History GI Surgical History: Cholecystectomy Genitourinary Surgical Hx: No Pertinent History Musculskeletal Surgical Hx: Other Male Surgical History: No Pertinent History Other Surgical History: BILATERAL CAROTID. 5 cardiac stents, hand surg - Social History Smoking Status: Former smoker How long have you smoked: 40 years Exposure to second hand smoke: No Alcohol: None Drug Use: none - Physical Exam Vital Signs: Vital Signs - 24 hr Temp Pulse Resp BP Pulse Ox 07/16/16 07:33 98.0 F 53 L 18 157/67 98 07/16/16 06:55 53 L 18 98 07/16/16 04:00 97.9 F 56 L 18 120/53 95 07/16/16 03:07 54 L 18 95 07/16/16 02:00 55 L 20 94 L 07/16/16 01:35 97.9 F 55 L 18 100/54 97 07/16/16 01:08 97 07/16/16 00:51 57 L 17 114/53 97 07/16/16 00:06 57 L 20 116/57 97 07/15/16 23:17 60 16 110/54 97 07/15/16 22:59 61 21 97 07/15/16 22:48 97 07/15/16 22:47 64 15 114/56 97 07/15/16 21:49 98.3 F 64 20 119/59 97 Oxygen-Last 24 hours O2 Percentage 3 Liters = 32% O2 Percentage 3 Liters = 32% O2 Percentage 3 Liters = 32% O2 Percentage 3 Liters = 32% O2 Percentage 3 Liters = 32% O2 Percentage 2 Liters = 28% O2 Percentage 3 Liters = 32% O2 Percentage 3 Liters = 32% General Appearance: no apparent distress, alert, obese Neurologic Exam: alert, oriented x 3, cooperative, normal mood/affect, nml cerebellar function, nml station & gait, sensation nml, No motor deficits Eye Exam: PERRL/EOMI, eyes nml inspection Ears, Nose, Throat Exam: normal ENT inspection, TMs normal, pharynx normal, moist mucous membranes Neck Exam: normal inspection, non-tender, supple, full range of motion Respiratory Exam: normal breath sounds, lungs clear, No respiratory distress Cardiovascular Exam: regular rate/rhythm, normal heart sounds, normal peripheral pulses Gastrointestinal/Abdomen Exam: soft, normal bowel sounds, No tenderness, No mass Back Exam: normal inspection, normal range of motion, No CVA tenderness, No vertebral tenderness Extremity Exam: normal inspection, normal range of motion, pelvis stable Skin Exam: normal color, warm, dry, No rash Lymphatic Exam: No adenopathy Results - Labs Lab/Micro Results: Lab Results-Last 24 Hours 07/16/16 Range/Units 06:06 Sodium 128 L (136-145) mEq/L Potassium 7.5 H* (3.5-5.1) mEq/L Chloride 96 L (98-107) mEq/L Carbon Dioxide 25.4 (21-32) mEq/L Anion Gap 13.7 (5-15) MEQ/L BUN 98 H (9-20) mg/dL Creatinine 2.76 H (0.55-1.30) mg/dl Estimated GFR 24 ML/MIN Glucose 599 H* (70-110) MG/DL Calcium 8.5 (8.5-10.1) mg/dL - Other Procedures and Tests Respiratory Therapy 07/16/16 02:08 Oxygen NASAL CANNULA 3 lpm 07/16/16 06:59 Respiratory Nebulizer PRN Assessment/Plan (1) Hyperkalemia Current Visit: Yes Status: Acute Assessment & Plan: repeat K this am was 7.5 (from 5.8 6 hr prior on admission) with acute on chronic renal failure and hyperglycemia he is being given bolus of 1.5 L of NS and maint fluid increased to 200 ml/h he has been given 20 Units of insulin and with glucose still reading high will get an additional 20 Units of regular IV. He has had 30 g of kayexalate and had a BM now and repeat BMP being drawn now. He is on telemetry with slight increased T wave from admission when his K was only 5.8 if K still high will give IV calcium 1g discontinue lisinopril, lasix, HCTZ His lungs sound clear currently, discontinue solumedrol dosing now and monitor respiratory status continue albuterol. Code(s): E87.5 - HYPERKALEMIA (2) Acute on chronic renal failure Current Visit: Yes Status: Acute Assessment & Plan: Follows with Dr. Mckeon Code(s): N17.9 - ACUTE KIDNEY FAILURE, UNSPECIFIED; N18.9 - CHRONIC KIDNEY DISEASE, UNSPECIFIED (3) COPD exacerbation Current Visit: Yes Status: Acute Code(s): J44.1 - CHRONIC OBSTRUCTIVE PULMONARY DISEASE W (ACUTE) EXACERBATION (4) Type 2 diabetes mellitus with hyperosmolarity, uncontrolled Current Visit: Yes Status: Acute Assessment & Plan: insulin as above follows with Dr. Harrison Code(s): E11.00 - TYPE 2 DIAB W HYPROSM W/O NONKET HYPRGLY-HYPROS COMA ([facility]); E11.65 - TYPE 2 DIABETES MELLITUS WITH HYPERGLYCEMIA (5) Diastolic CHF Current Visit: Yes Status: Chronic Qualifiers: Congestive heart failure chronicity: chronic Qualified Code(s): I50.32 - Chronic diastolic (congestive) heart failure Assessment & Plan: Follows with Dr. Ugalde last echo 02/2016 EF 54% Code(s): I50.30 - UNSPECIFIED DIASTOLIC (CONGESTIVE) HEART FAILURE (6) Coronary artery disease Current Visit: Yes Status: Chronic Qualifiers: Associated angina: angina presence unspecified Qualified Code(s): I25.810 - Atherosclerosis of coronary artery bypass graft(s) without angina pectoris Code(s): I25.10 - ATHSCL HEART DISEASE OF [place] CORONARY ARTERY W/O ANG PCTRS (7) Hypertension Current Visit: Yes Status: Chronic Qualifiers: Hypertension type: essential hypertension Qualified Code(s): I10 - Essential (primary) hypertension Code(s): I10 - ESSENTIAL (PRIMARY) HYPERTENSION (8) Anemia in chronic kidney disease Current Visit: Yes Status: Chronic Code(s): N18.9 - CHRONIC KIDNEY DISEASE, UNSPECIFIED; D63.1 - ANEMIA IN CHRONIC KIDNEY DISEASE (9) BPH w/o urinary obs/LUTS Current Visit: Yes Status: Chronic Code(s): N40.0 - BENIGN PROSTATIC HYPERPLASIA WITHOUT LOWER URINRY TRACT SYMP
[2016-07-16 08:57] LABS: ANION GAP 13.8 MEQ/L (5-15); Carbon Dioxide 26.9 mEq/L (21-32)
[2016-07-16] MEDS: Pepcid 20 MG VIAL IV SCH ×2 (09:14→21:35)
[2016-07-16] MEDS ORDERED: PROVENTIL 2.5 MG/3 ML NEB IH PRN (09:24)
[2016-07-16] MEDS ORDERED: D50W 50 ml Abboject IV ONE (09:29)
[2016-07-16 09:34] LABS: Potassium 6.4 mEq/L (3.5-5.1)
[2016-07-16 09:50] LABS: VBG BASE EXCESS -3.8 (-2.0-2.0); VBG CARBOXYHEMOGLOBIN 2.1 % T HGB (0.0-6.9); VBG HCO3- 22.2 meq/L (22-28); VBG HEMOGLOBIN 12.2; VBG O2 SATURATION 94.4 (95-100); VBG POTASSIUM 5.2 (3.5-5.1); VBG pH 7.32 (7.32-7.42)
[2016-07-16] MEDS ORDERED: BABY ASPIRIN 81 MG CHEW PO ONE (10:00)
[2016-07-16] MEDS ORDERED: INSULIN LISPRO 26 UNIT SQ SCH (10:00)
[2016-07-16] MEDS ORDERED: NORVASC 5 MG PO SCH (10:00)
[2016-07-16] MEDS ORDERED: Lantus Insulin SQ SCH ×2 (10:00→22:00)
[2016-07-16] MEDS ORDERED: NON-FORMULARY ITEM (Aspirin [Aspirin] 325 MG) PO SCH (10:00)
[2016-07-16] MEDS ORDERED: Kayexylate 15 GM/60 ML PO SCH (10:00)
[2016-07-16] MEDS ORDERED: Coreg 3.125 MG PO SCH (10:00)
[2016-07-16] MEDS ORDERED: ECOTRIN 81 MG PO ONE (10:01)
[2016-07-16] MEDS ORDERED: TRANDATE 20 MG/5 ML SYRINGE IV ONE (10:01)
[2016-07-16] MEDS: Ecotrin 325 MG PO SCH (10:05)
[2016-07-16] MEDS: NOVOLIN R INSULIN (FOR DRIPS)** 100 UNITS in Sodium Chloride 0.9% 100 ML IVPB 100 ML IV PRN ×2 (10:11→17:22)
[2016-07-16 10:24] LABS: Mean Cell Volume 89.8 fl (78-100); Mean Corpuscular Hemoglobin 27.6 pg (26-32); Mean Platelet Volume 14.1 fl (6-9.5); Platelet Count 125 K/mm3 (150-450); Red Cell Distribution Width 14.8 % (11.5-14.0); White Blood Count 7.4 K/mm3 (4.0-10.5)
[2016-07-16 10:26] LABS: INR 1.04 (0.8-3.0); PROTIME 11.6 SECONDS (8.83-12.87)
[2016-07-16 10:44] LABS: ANION GAP 15.6 MEQ/L (5-15); BLOOD UREA NITROGEN 93 mg/dL (9-20); CHLORIDE 100 mEq/L (98-107); Carbon Dioxide 21.8 mEq/L (21-32); MAGNESIUM 2.3 mg/dL (1.8-2.4); PHOSPHOROUS 2.9 mg/dL (2.6-4.7); Potassium 5.4 mEq/L (3.5-5.1); SODIUM 132 mEq/L (136-145)
[2016-07-16 10:45] LABS: TROPONIN < 0.017 ng/ml (0.000-0.056)
[2016-07-16 10:55] LABS: Glucose 791 MG/DL (70-110)
[2016-07-16] MEDS ORDERED: NovoLOG Insulin SQ SCH (11:30)
[2016-07-16] MEDS: COREG 12.5 MG PO SCH ×2 (11:44→18:44)
[2016-07-16] MEDS: Imdur 30 MG PO SCH (11:44)
[2016-07-16] MEDS: Flomax 0.4 MG PO SCH (11:44)
[2016-07-16] MEDS: PLAVIX 75 MG Tablet PO SCH (11:45)
[2016-07-16] MEDS: ZOCOR 20MG PO SCH (11:45)
[2016-07-16] MEDS: Sodium Chloride 0.9% 1000 ML 1,000 ML IV SCH ×2 (12:32→16:46)
[2016-07-16 14:20] LABS: ANION GAP 11.3 MEQ/L (5-15); Carbon Dioxide 26.7 mEq/L (21-32)
[2016-07-16 14:24] LABS: TROPONIN 0.119 ng/ml (0.000-0.056)
[2016-07-16 17:12] LABS: ANION GAP 13.5 MEQ/L (5-15); Carbon Dioxide 26.2 mEq/L (21-32); Potassium 4.6 mEq/L (3.5-5.1)
[2016-07-16 17:16] LABS: TROPONIN 0.623 ng/ml (0.000-0.056)
[2016-07-16] MEDS: Norco 10/325 MG Tablet PO PRN (18:43)
[2016-07-16 20:08] LABS: ANION GAP 12.3 MEQ/L (5-15); Carbon Dioxide 26.2 mEq/L (21-32)
[2016-07-16 20:10] LABS: TROPONIN 0.69 ng/ml (0.000-0.056)
[2016-07-16] MEDS: DUONEB 0.5-3 MG/3 ml Neb IH PRN (20:15)
[2016-07-16] MEDS ORDERED: TRANDATE 100MG/20 ML MDV IV ONE (20:21)
[2016-07-16] MEDS: NORVASC 5 MG PO SCH (21:35)
[2016-07-16] MEDS: ROCEPHIN 1 Gm-D5w 50 ml Bag** 1 G/50 ML IVPB IV SCH (21:36)
[2016-07-17] MEDS: NOVOLIN R INSULIN (FOR DRIPS)** 100 UNITS in Sodium Chloride 0.9% 100 ML IVPB 100 ML IV PRN ×3 (00:11→02:06)
[2016-07-17] MEDS: Sodium Chloride 0.9% 1000 ML 1,000 ML IV SCH (02:49)
[2016-07-17 07:16] LABS: ANION GAP 9.3 MEQ/L (5-15); Carbon Dioxide 28.4 mEq/L (21-32); Potassium 4.7 mEq/L (3.5-5.1)
[2016-07-17 07:17] LABS: TROPONIN 0.383 ng/ml (0.000-0.056)
[2016-07-17] MEDS: COREG 12.5 MG PO SCH ×3 (08:17→16:30)
--- NOTE | 2016-07-17 09:03 | PCM.NOTE ---
Date and Time: 07/17/16 0855 Subjective Assessment: yesterday morning after rounding the patient sugar continued to go up he began feeling very weak and confused his sugar was up to 700's. we did a rapid assessment of the patient at 09:15 and I was at the bedside for repeated clinical evaluations for 1 hour following this. He began having chest pressure and his blood pressure increased to the 180 to 200/ 90 to 100 range. Serial EKG' s were done with sustained right bundle branch block unchanged from old EKG. The K had trended down by this time to the 5 range but sugar was still climbing. He was transferred to the ICu started on insulin gtt and increased fluid with bolus and then rate of 250 mL/h. He was given a dose of IV labetalol for the increased bp with good results. The chest pressure resolved with correction of the bp. His initial troponin was undetectable and trended up 3 hours after the event and plateaued 6 hours after the event. He did not have any further chest pressure, pain, or shortness of breath after the initial event. he remained in sinus rhythm throughout and maintained oxygenation in the upper 90's. his family was updated at the bedside. He was doing much better on the insulin drip and fluids. His renal function was improving with the hydration and his potassium continued to remain controlled. Overnight he did well with no events. His bp did climb yesterday evening to 190 but he was asymptomatic an additional 10 mg of labetalol IV was given with resolution of this. His insulin gtt was titrated and up to 14 U/h he was otherwise doing well and was allowed to eat. Overnight the sugar was controlled on a rate of 9 U/h of insulin. Today he is resting well feeling ok breathing ok on room air no chest pain urinating without difficulty. The I/O recordings are not accurate as he received 2L of bolus and then was on 250 mL/h from 9 am to 6pm yesterday before decrease back to 100 mL/h that he was on starting at admission. He is also drinking as well He is voiding but not collected Objective Exam General Appearance: obese Neurologic Exam: alert, oriented x 3, cooperative Skin Exam: warm, dry, rash Neck Exam: normal inspection, non-tender, supple Respiratory Exam: normal breath sounds, lungs clear Cardiovascular Exam: regular rate/rhythm, No murmur, No edema Gastrointestinal/Abdomen Exam: soft, normal bowel sounds, No tenderness, No distention Extremity Exam: normal inspection, No calf tenderness, No pedal edema OBJECTIVE DATA Vital Signs: Vital Signs - 24 hr Temp Pulse Resp BP BP Pulse Ox 07/17/16 08:00 97.8 F 51 L 18 130/46 95 07/17/16 07:56 51 L 07/17/16 07:20 95 07/17/16 06:38 54 L 18 141/56 98 07/17/16 04:00 52 L 19 07/17/16 03:00 58 L 146/41 07/17/16 02:00 56 L 21 149/52 98 07/17/16 01:00 60 21 126/51 96 07/17/16 00:00 98 F 58 L 17 154/44 98 07/16/16 23:00 60 152/47 07/16/16 22:00 64 18 145/55 99 07/16/16 21:00 67 169/113 07/16/16 20:15 68 20 95 07/16/16 20:00 97.3 F 68 18 172/69 98 07/16/16 16:02 77 07/16/16 16:00 98.2 F 69 22 153/68 98 07/16/16 12:00 97.7 F 70 20 153/68 100 Oxygen-Last 24 hours O2 Percentage 2 Liters = 28% O2 Percentage 2 Liters = 28% O2 Percentage 2 Liters = 28% O2 Percentage 2 Liters = 28% O2 Percentage 2 Liters = 28% O2 Percentage 3 Liters = 32% O2 Percentage 3 Liters = 32% Pain Assessment - Last Documented Pain Intensity 0 Pain Scale Used 0-10 Pain Scale Intake and Output: Intake & Output 07/14/16 07/15/16 07/16/16 07/17/16 11:59 11:59 11:59 11:59 Intake Total 360 3004 Output Total 1370 Balance 360 1634 Weight 113.942 kg 116.7 kg Lab Results: Accuchecks Date 07/17/16 Date 07/17/16 Date 07/17/16 Date 07/17/16 Date 07/17/16 Date 07/17/16 Date 07/17/16 Date 07/17/16 Date 07/17/16 Date 07/16/16 Date 07/16/16 Date 07/16/16 Date 07/16/16 Time 08:00 Time 07:00 Time 06:00 Time 05:00 Time 04:00 Time 03:00 Time 02:00 Time 01:00 Time 00:00 Time 23:00 Time 22:00 Time 21:00 Time 20:00 Accucheck Value: 182 Accucheck Value: 184 Accucheck Value: 164 Accucheck Value: 159 Accucheck Value: 138 Accucheck Value: 136 Accucheck Value: 173 Accucheck Value: 230 Accucheck Value: 234 Accucheck Value: 213 Accucheck Value: 213 Accucheck Value: 201 Accucheck Value: 203 Accucheck Value: 214 Accucheck Value: 228 Accucheck Value: 227 Accucheck Value: 269 Accucheck Value: 301 Accucheck Value: 397 Accucheck Value: 344 Accucheck Value: 397 Accucheck Value: 451 Lab Results-Last 24 Hours 07/16/16 07/16/16 07/16/16 Range/Units 06:00 08:40 09:43 WBC (4.0-10.5) K/mm3 RBC (4.1-5.6) M/mm3 Hgb (12.5-18.0) gm/dl Hct (42-50) % MCV (78-100) fl MCH (26-32) pg MCHC (32-36) g/dl RDW (11.5-14.0) % Plt Count (150-450) K/mm3 MPV (6-9.5) fl INR 1.04 (0.8-3.0) APTT 29.0 (24.1-36.1) SECONDS VBG pH 7.32 (7.32-7.42) VBG pCO2 at Pat Temp 43 (42-55) mm/Hg VBG pO2 at Pat Temp 62 H (25-40) mm/Hg VBG HCO3 22.2 (22-28) meq/L VBG O2 Sat ([place]uro) 94.4 L (95-100) VBG Base Excess -3.8 L (-2.0-2.0) VBG Hemoglobin 12.2 VBG Carboxyhemoglobin 2.1 (0.0-6.9) % T HGB POC Potassium 5.2 H (3.5-5.1) Sodium 130 L (136-145) mEq/L Potassium 6.4 H* (3.5-5.1) mEq/L Chloride 96 L (98-107) mEq/L Carbon Dioxide 26.9 (21-32) mEq/L Anion Gap 13.8 (5-15) MEQ/L BUN 94 H (9-20) mg/dL Creatinine 2.79 H (0.55-1.30) mg/dl Estimated GFR 24 ML/MIN Glucose 655 H* (70-110) MG/DL Calcium 8.8 (8.5-10.1) mg/dL Phosphorus (2.6-4.7) mg/dL Magnesium (1.8-2.4) mg/dL Troponin I (0.000-0.056) ng/ml 07/16/16 07/16/16 07/16/16 Range/Units 09:55 09:55 13:47 WBC 7.4 (4.0-10.5) K/mm3 RBC 4.20 (4.1-5.6) M/mm3 Hgb 11.6 L (12.5-18.0) gm/dl Hct 37.7 L (42-50) % MCV 89.8 (78-100) fl MCH 27.6 (26-32) pg MCHC 30.8 L (32-36) g/dl RDW 14.8 H (11.5-14.0) % Plt Count 125 L (150-450) K/mm3 MPV 14.1 H (6-9.5) fl INR (0.8-3.0) APTT (24.1-36.1) SECONDS VBG pH (7.32-7.42) VBG pCO2 at Pat Temp (42-55) mm/Hg VBG pO2 at Pat Temp (25-40) mm/Hg VBG HCO3 (22-28) meq/L VBG O2 Sat ([place]uro) (95-100) VBG Base Excess (-2.0-2.0) VBG Hemoglobin VBG Carboxyhemoglobin (0.0-6.9) % T HGB POC Potassium (3.5-5.1) Sodium 132 L 137 (136-145) mEq/L Potassium 5.4 H 5.0 (3.5-5.1) mEq/L Chloride 100 104 (98-107) mEq/L Carbon Dioxide 21.8 26.7 (21-32) mEq/L Anion Gap 15.6 H 11.3 (5-15) MEQ/L BUN 93 H 83 H (9-20) mg/dL Creatinine 2.68 H 2.27 H (0.55-1.30) mg/dl Estimated GFR 25 30 ML/MIN Glucose 791 H* 387 H (70-110) MG/DL Calcium 8.5 8.5 (8.5-10.1) mg/dL Phosphorus 2.9 (2.6-4.7) mg/dL Magnesium 2.3 (1.8-2.4) mg/dL Troponin I < 0.017 0.119 H* (0.000-0.056) ng/ml 07/16/16 07/16/16 07/17/16 Range/Units 16:20 19:28 06:05 WBC (4.0-10.5) K/mm3 RBC (4.1-5.6) M/mm3 Hgb (12.5-18.0) gm/dl Hct (42-50) % MCV (78-100) fl MCH (26-32) pg MCHC (32-36) g/dl RDW (11.5-14.0) % Plt Count (150-450) K/mm3 MPV (6-9.5) fl INR (0.8-3.0) APTT (24.1-36.1) SECONDS VBG pH (7.32-7.42) VBG pCO2 at Pat Temp (42-55) mm/Hg VBG pO2 at Pat Temp (25-40) mm/Hg VBG HCO3 (22-28) meq/L VBG O2 Sat ([place]uro) (95-100) VBG Base Excess (-2.0-2.0) VBG Hemoglobin VBG Carboxyhemoglobin (0.0-6.9) % T HGB POC Potassium (3.5-5.1) Sodium 140 140 142 (136-145) mEq/L Potassium 4.6 5.0 4.7 (3.5-5.1) mEq/L Chloride 105 106 109 H (98-107) mEq/L Carbon Dioxide 26.2 26.2 28.4 (21-32) mEq/L Anion Gap 13.5 12.3 9.3 (5-15) MEQ/L BUN 78 H 75 H 63 H (9-20) mg/dL Creatinine 2.20 H 2.08 H 1.85 H (0.55-1.30) mg/dl Estimated GFR 31 34 38 ML/MIN Glucose 267 H 237 H 167 H (70-110) MG/DL Calcium 8.5 8.3 L 8.0 L (8.5-10.1) mg/dL Phosphorus (2.6-4.7) mg/dL Magnesium (1.8-2.4) mg/dL Troponin I 0.623 H* 0.690 H* 0.383 H* (0.000-0.056) ng/ml Radiology Exams: Radiology Procedures Category Date Time Status ECHO W/2D AND DOPPLER [US] Routine Exams 07/18/16 08:51 Ordered Assessment/Plan (1) NSTEMI (non-ST elevated myocardial infarction) Current Visit: Yes Status: Acute Assessment & Plan: he is on aspirin, plavix, lovenox, carvedilol, statin, imdur. he is asymptomatic there were no EKG changes he has chronic Right bundle branch block with previous stenting and cabg. After correction of the bp and the severe hyperglycemia the symptoms resolved. Holding lisinopril with his acute on chronic renal failure. Holding lasix as well renal function improving change iv fluids to 0.45 NaCl at 70 mL/h with his hx of diastolic CHF monitor renal function and K in am as K is corrected now stop insulin gtt. precipitated by the solumedrol in ED for COPD exacerbation which is much improved now continue off steroids currently on Rocephin for the COPD exacerbation from the ED increase lantus to 50 Units BID and increase novolog to 30 Units ac + SSI ok to transfer to floor on telemetry today check echo in the am his oil expeller is Dr. Ugalde Code(s): I21.4 - NON-ST ELEVATION (NSTEMI) MYOCARDIAL INFARCTION (2) Type 2 diabetes mellitus with hyperosmolarity, uncontrolled Current Visit: Yes Status: Acute Qualifiers: Diabetes mellitus retirement insulin use: with retirement use Assessment & Plan: the insulin gtt is stopped Code(s): E11.00 - TYPE 2 DIAB W HYPROSM W/O NONKET HYPRGLY-HYPROS COMA (N[facility]); E11.65 - TYPE 2 DIABETES MELLITUS WITH HYPERGLYCEMIA (3) Hyperkalemia Current Visit: Yes Status: Resolved Code(s): E87.5 - HYPERKALEMIA (4) Acute on chronic renal failure Current Visit: Yes Status: Acute Code(s): N17.9 - ACUTE KIDNEY FAILURE, UNSPECIFIED; N18.9 - CHRONIC KIDNEY DISEASE, UNSPECIFIED (5) COPD exacerbation Current Visit: Yes Status: Acute Code(s): J44.1 - CHRONIC OBSTRUCTIVE PULMONARY DISEASE W (ACUTE) EXACERBATION (6) Diastolic CHF Current Visit: Yes Status: Chronic Qualifiers: Congestive heart failure chronicity: chronic Qualified Code(s): I50.32 - Chronic diastolic (congestive) heart failure Code(s): I50.30 - UNSPECIFIED DIASTOLIC (CONGESTIVE) HEART FAILURE (7) Coronary artery disease Current Visit: Yes Status: Chronic Qualifiers: Associated angina: angina presence unspecified Qualified Code(s): I25.810 - Atherosclerosis of coronary artery bypass graft(s) without angina pectoris Code(s): I25.10 - ATHSCL HEART DISEASE OF [place] CORONARY ARTERY W/O ANG PCTRS (8) Hypertension Current Visit: Yes Status: Chronic Qualifiers: Hypertension type: essential hypertension Qualified Code(s): I10 - Essential (primary) hypertension Code(s): I10 - ESSENTIAL (PRIMARY) HYPERTENSION (9) Anemia in chronic kidney disease Current Visit: Yes Status: Chronic Code(s): N18.9 - CHRONIC KIDNEY DISEASE, UNSPECIFIED; D63.1 - ANEMIA IN CHRONIC KIDNEY DISEASE (10) BPH w/o urinary obs/LUTS Current Visit: Yes Status: Chronic Code(s): N40.0 - BENIGN PROSTATIC HYPERPLASIA WITHOUT LOWER URINRY TRACT SYMP
[2016-07-17] MEDS: Nitrostat 0.4 MG Tablet SL PRN ×2 (09:41→14:59)
[2016-07-17] MEDS: ENOXAPARIN SODIUM SQ SCH (09:43)
[2016-07-17] MEDS: Pepcid 20 MG VIAL IV SCH ×2 (09:45→21:15)
[2016-07-17] MEDS: Lantus Insulin SQ SCH ×3 (09:47→21:18)
[2016-07-17] MEDS: NORVASC 5 MG PO SCH ×2 (09:52→21:16)
[2016-07-17] MEDS: PLAVIX 75 MG Tablet PO SCH (09:52)
[2016-07-17] MEDS: ZOCOR 20MG PO SCH (09:52)
[2016-07-17] MEDS: Ecotrin 325 MG PO SCH (09:53)
[2016-07-17] MEDS: Imdur 30 MG PO SCH ×3 (09:53→21:18)
[2016-07-17] MEDS: Flomax 0.4 MG PO SCH (10:41)
--- NOTE | 2016-07-17 10:52 | PCM.NOTE ---
Date and Time: 07/17/16 1047 OBJECTIVE DATA Vital Signs: Vital Signs - 24 hr Temp Pulse Resp BP BP BP Pulse Ox 07/17/16 09:41 62 169/62 07/17/16 08:00 97.8 F 51 L 18 130/46 95 07/17/16 07:56 51 L 07/17/16 07:20 95 07/17/16 06:38 54 L 18 141/56 98 07/17/16 04:00 52 L 19 07/17/16 03:00 58 L 146/41 07/17/16 02:00 56 L 21 149/52 98 07/17/16 01:00 60 21 126/51 96 07/17/16 00:00 98 F 58 L 17 154/44 98 07/16/16 23:00 60 152/47 07/16/16 22:00 64 18 145/55 99 07/16/16 21:00 67 169/113 07/16/16 20:15 68 20 95 07/16/16 20:00 97.3 F 68 18 172/69 98 07/16/16 16:02 77 07/16/16 16:00 98.2 F 69 22 153/68 98 07/16/16 12:00 97.7 F 70 20 153/68 100 Oxygen-Last 24 hours O2 Percentage 2 Liters = 28% O2 Percentage 2 Liters = 28% O2 Percentage 2 Liters = 28% O2 Percentage 2 Liters = 28% O2 Percentage 2 Liters = 28% O2 Percentage 3 Liters = 32% O2 Percentage 3 Liters = 32% Pain Assessment - Last Documented Pain Intensity 0 Pain Scale Used 0-10 Pain Scale Intake and Output: Intake & Output 07/14/16 07/15/16 07/16/16 07/17/16 11:59 11:59 11:59 11:59 Intake Total 360 3004 Output Total 2020 Balance 360 984 Weight 113.942 kg 116.7 kg Lab Results: Accuchecks Date 07/17/16 Date 07/17/16 Date 07/17/16 Date 07/17/16 Date 07/17/16 Date 07/17/16 Date 07/17/16 Date 07/17/16 Date 07/17/16 Date 07/17/16 Date 07/17/16 Date 07/16/16 Date 07/16/16 Date 07/16/1607/16/17 Time 10:05 Time 09:00 Time 08:00 Time 07:00 Time 06:00 Time 05:00 Time 04:00 Time 03:00 Time 02:00 Time 01:00 Time 00:00 Time 23:00 Time 22:00 Time 21:00 Time 20:00 Accucheck Value: 281 Accucheck Value: 251 Accucheck Value: 182 Accucheck Value: 184 Accucheck Value: 164 Accucheck Value: 159 Accucheck Value: 138 Accucheck Value: 136 Accucheck Value: 173 Accucheck Value: 230 Accucheck Value: 234 Accucheck Value: 213 Accucheck Value: 213 Accucheck Value: 201 Accucheck Value: 203 Accucheck Value: 214 Accucheck Value: 228 Accucheck Value: 227 Accucheck Value: 269 Accucheck Value: 301 Accucheck Value: 397 Accucheck Value: 344 Accucheck Value: 397 Accucheck Value: 451 Lab Results-Last 24 Hours 07/16/16 07/16/16 07/16/16 Range/Units 09:55 13:47 16:20 Sodium 132 L 137 140 (136-145) mEq/L Potassium 5.4 H 5.0 4.6 (3.5-5.1) mEq/L Chloride 100 104 105 (98-107) mEq/L Carbon Dioxide 21.8 26.7 26.2 (21-32) mEq/L Anion Gap 15.6 H 11.3 13.5 (5-15) MEQ/L BUN 93 H 83 H 78 H (9-20) mg/dL Creatinine 2.68 H 2.27 H 2.20 H (0.55-1.30) mg/dl Estimated GFR 25 30 31 ML/MIN Glucose 791 H* 387 H 267 H (70-110) MG/DL Calcium 8.5 8.5 8.5 (8.5-10.1) mg/dL Phosphorus 2.9 (2.6-4.7) mg/dL Magnesium 2.3 (1.8-2.4) mg/dL Troponin I < 0.017 0.119 H* 0.623 H* (0.000-0.056) ng/ml 07/16/16 07/17/16 Range/Units 19:28 06:05 Sodium 140 142 (136-145) mEq/L Potassium 5.0 4.7 (3.5-5.1) mEq/L Chloride 106 109 H (98-107) mEq/L Carbon Dioxide 26.2 28.4 (21-32) mEq/L Anion Gap 12.3 9.3 (5-15) MEQ/L BUN 75 H 63 H (9-20) mg/dL Creatinine 2.08 H 1.85 H (0.55-1.30) mg/dl Estimated GFR 34 38 ML/MIN Glucose 237 H 167 H (70-110) MG/DL Calcium 8.3 L 8.0 L (8.5-10.1) mg/dL Phosphorus (2.6-4.7) mg/dL Magnesium (1.8-2.4) mg/dL Troponin I 0.690 H* 0.383 H* (0.000-0.056) ng/ml Radiology Exams: Radiology Procedures Category Date Time Status ECHO W/2D AND DOPPLER [US] Routine Exams 07/18/16 08:51 Ordered Assessment/Plan (1) Unstable angina Current Visit: Yes Status: Acute Assessment & Plan: see note from earlier today after this evaluation when he was doing well he fell asleep and awoke to pain in his left lower abdomen and chest pressure and was very anxious with this. He was given a sublingual nitro and the pain resolved. ekg showed RBBB with now inverted T waves laterally His transitional nurse Dr. Ugalde was contacted and case was discussed in detail. He agreed with the current medical mgmt and maximize medical therapy. He would like to avoid any intervention at this time with the proximity to the acute kidney injury and if the patient continues to do well agrees with continued mgmt here in [place] and if worsening cardiac symptoms he stated he would be happy to consult on a transfer, but at this time we agree to continue to work on improving his renal failure and treat his angina medically. the patient was informed and agrees with the decision.
[2016-07-17] MEDS: Protonix 40MG Tablet PO SCH (11:07)
[2016-07-17] MEDS: NovoLOG Insulin SQ SCH ×2 (12:03→17:00)
[2016-07-17] MEDS: NovoLOG Insulin SQ PRN ×2 (13:14→17:32)
[2016-07-17] MEDS: ROCEPHIN 1 Gm-D5w 50 ml Bag** 1 G/50 ML IVPB IV SCH (21:15)
[2016-07-18] MEDS: Norco 10/325 MG Tablet PO PRN ×2 (00:05→22:12)
[2016-07-18 05:42] LABS: Mean Cell Volume 92.5 fl (78-100); Mean Corpuscular Hemoglobin 28.2 pg (26-32); Mean Platelet Volume 13.5 fl (6-9.5); Platelet Count 137 K/mm3 (150-450); Red Blood Count 3.72 M/mm3 (4.1-5.6); White Blood Count 9.2 K/mm3 (4.0-10.5)
[2016-07-18 06:38] LABS: ANION GAP 9.2 MEQ/L (5-15); Potassium 4.8 mEq/L (3.5-5.1)
[2016-07-18 06:40] LABS: TROPONIN 0.148 ng/ml (0.000-0.056)
[2016-07-18] MEDS: COREG 12.5 MG PO SCH ×2 (08:02→16:53)
[2016-07-18] MEDS: NovoLOG Insulin SQ SCH ×3 (08:02→16:53)
[2016-07-18] MEDS: Imdur 30 MG PO SCH ×2 (09:17→22:13)
[2016-07-18] MEDS: NORVASC 5 MG PO SCH ×2 (09:17→22:13)
[2016-07-18] MEDS: Protonix 40MG Tablet PO SCH (09:17)
[2016-07-18] MEDS: Flomax 0.4 MG PO SCH (09:17)
[2016-07-18] MEDS: Ecotrin 325 MG PO SCH (09:17)
[2016-07-18] MEDS: Lantus Insulin SQ SCH (09:18)
[2016-07-18] MEDS: ENOXAPARIN SODIUM SQ SCH (09:18)
[2016-07-18] MEDS: ZOCOR 20MG PO SCH (09:18)
[2016-07-18] MEDS: Pepcid 20 MG VIAL IV SCH ×2 (09:18→22:13)
[2016-07-18] MEDS: PLAVIX 75 MG Tablet PO SCH (09:18)
[2016-07-18] MEDS: DUONEB 0.5-3 MG/3 ml Neb IH PRN (20:13)
[2016-07-18] MEDS: ROCEPHIN 1 Gm-D5w 50 ml Bag** 1 G/50 ML IVPB IV SCH (22:13)
[2016-07-19 05:48] LABS: BASOPHIL % 0.3 % (0.0-0.4); Eosinophil % 2.3 % (0.00-5.0); Granulocytes % 60.7 % (36.0-66.0); Lymphocytes % 23.2 % (24.0-44.0); Mean Cell Volume 91.8 fl (78-100); Mean Corpuscular Hemoglobin 28.3 pg (26-32); Mean Platelet Volume 13.2 fl (6-9.5); Monocytes % 13.5 % (0.0-12.0); Platelet Count 129 K/mm3 (150-450); Red Blood Count 3.78 M/mm3 (4.1-5.6); White Blood Count 7.7 K/mm3 (4.0-10.5)
[2016-07-19 06:37] LABS: ALBUMIN 2.6 g/dL (3.4-5.0); ANION GAP 10.3 MEQ/L (5-15); BILIRUBIN,TOTAL 0.2 mg/dL (0.2-1.0); Carbon Dioxide 29.8 mEq/L (21-32); Potassium 4.4 mEq/L (3.5-5.1); Total Protein 6.5 gm/dL (6.4-8.2)
[2016-07-19 06:59] LABS: TROPONIN 0.107 ng/ml (0.000-0.056)
--- NOTE | 2016-07-19 07:28 | PCM.DCORD ---
- Discharge Discharge Date: 07/19/16 Disposition: Home, Self-Care Condition: Fair Prescriptions: No Action Isosorbide Mononitrate [Imdur] 30 mg PO DAILY Nitroglycerin 0.4 mg PO UD PRN PRN Reason: CP Carvedilol 3.125 mg [Coreg 3.125 MG] 12.5 mg PO BID Aspirin 325 mg PO DAILY Lisinopril 20 mg [Zestril 20 MG] 40 mg PO DAILY Clopidogrel Bisulfate 75 mg [PLAVIX 75 MG Tablet] 75 mg PO DAILY Hydrochlorothiazide 25 mg [hydroDIURIL 25 MG] 25 mg PO DAILY Atorvastatin Calcium 80 mg PO DAILY Hydrocodone/APAP 10/325 mg [[place] 10/325 MG Tablet] 10 mg PO QID PRN Furosemide 20 mg [Lasix 20 mg] 20 mg PO BID Albuterol 2.5 mg/3 ml Neb [Proventil 2.5 mg/3 ml Neb] 2.5 mg IH Q2H/ PRN PRN PRN Reason: Shortness Of Breath/Wheezing Amlodipine Besylate 5 mg [Norvasc 5 mg] 5 mg PO DAILY Magnesium Oxide [Magnesium] 400 mg PO BID Insulin Lispro [Humalog] 26 unit SQ TID Tamsulosin HCl 0.4 mg [Flomax 0.4 MG] 0.4 mg PO DAILY Insulin Glargine [Lantus Insulin] 25 unit SQ QHS Additional Instructions: Please follow up with your packaging design engineer and Dr Rouse. Appointments have been made for you. Please resume all the same home medications you have been taking. Monitor you blood sugar. If you feel you are having an emergency please return to the closest ER. Follow up with: MAO ROUSE [Primary Care Provider] - NICKY ORTIZ [CONSULTING PHYSICIAN] - 1 Week
[2016-07-19] MEDS: COREG 12.5 MG PO SCH (07:46)
[2016-07-19] MEDS: NovoLOG Insulin SQ SCH ×2 (07:46→11:41)
--- NOTE | 2016-07-19 08:36 | DS ---
DISCHARGE DIAGNOSES: 1) MYOCARDIAL INFARCTION. 2) DIABETES MELLITUS TYPE 2. HOSPITAL COURSE: The patient is a 71 year-old white male patient who presented to the emergency room for increasing shortness of breath. The patient was admitted to the hospital. His troponins carlos to 0.690. The patient's rockboard lather was consulted and it was felt that no active intervention was going to be performed therefore the patient was monitored in our facility initially in the ICU with monitoring troponins which had been decreasing over the past couple of days. The patient reports that he has been doing much better. He has been ambulating in the room without difficulty. He was felt to be ready for discharge home. His vital signs last noted on the chart record show temperature 97.8F, pulse 54, respiratory rate 18, blood pressure 141/56. O2 saturation 98% on room air. The patient has had some difficulties with his sugar since admission. He received Solu-Medrol initially for what was felt initially to be an acute exacerbation of chronic obstructive pulmonary disease. Since that time the patient's sugars have stabilized. He has been on Lantus here which he has not been taking at home despite what the chart record indicates. The patient reports that his sugars had been up in the 400's at home recently. However, this will require further monitoring as an outpatient. The patient's discharge labs showed his glucose to be 118 fasting, BUN 43, creatinine 1.55. Electrolytes were normal. Last reported troponin was 0.148. His CBC showed a hemoglobin of 7.5, white blood cell count 9,300, PLT count of 137,000. The patient had echocardiogram that showed mild mitral regurgitation, mild pulmonary regurgitation, low normal left ventricular systolic function. Ejection was recorded at 54% and this is from an echocardiogram of 02/26/2016. The patient had CT scan abdomen and pelvis which showed mild stable sigmoid diverticulosis. There was some new lung base peripheral hazy interstitial alveolar opacity noted. The patient had been placed on Rocephin and Zithromax. His chest x-ray otherwise was read as stable, nonacute chest with chronic features. Again the patient is now felt to be ready for discharge home again. He will follow up with his rockboard lather, Dr. Ugalde, within the next week or two. He will also follow up with me in the office. For further monitoring and treatment of his diabetes. Otherwise he will continue to use his home medications as indicated previously in the chart records.
[2016-07-19] MEDS: ZOCOR 20MG PO SCH (09:37)
[2016-07-19] MEDS: Ecotrin 325 MG PO SCH (09:37)
[2016-07-19] MEDS: Imdur 30 MG PO SCH (09:37)
[2016-07-19] MEDS: PLAVIX 75 MG Tablet PO SCH (09:38)
[2016-07-19] MEDS: Protonix 40MG Tablet PO SCH (09:38)
[2016-07-19] MEDS: Pepcid 20 MG VIAL IV SCH (09:38)
[2016-07-19] MEDS: NORVASC 5 MG PO SCH (09:38)
[2016-07-19] MEDS: Flomax 0.4 MG PO SCH (09:38)
[2016-07-19] MEDS: ENOXAPARIN SODIUM SQ SCH (09:38)
[2016-07-19 12:20] VITALS: BP 148/70; PULSE 66; O2SAT 96
== END 2016-07-19 12:40 | disposition home health service (06) | DRG 281 ==
LOC: ED 21:47 → MED SURG 07-16 01:34 → ICU 07-16 10:00 → MED SURG 07-18 13:07
PROVIDERS: ADMIT Family Medicine; ATTEND Family Medicine
DX: I21.3 ST elevation (STEMI) myocardial infarction of unspecified site (principal); I50.32 Chronic diastolic (congestive) heart failure; I25.810 Atherosclerosis of coronary artery bypass graft(s) without angina pectoris; J44.1 Chronic obstructive pulmonary disease with (acute) exacerbation; N17.9 Acute kidney failure, unspecified; E11.65 Type 2 diabetes mellitus with hyperglycemia; I34.0 Nonrheumatic mitral (valve) insufficiency; I37.1 Nonrheumatic pulmonary valve insufficiency; K57.30 Diverticulosis of large intestine without perforation or abscess without bleeding; M19.90 Unspecified osteoarthritis, unspecified site; E87.5 Hyperkalemia; I12.9 Hypertensive chronic kidney disease with stage 1 through stage 4 chronic kidney disease, or unspecified chronic kidney disease; N18.9 Chronic kidney disease, unspecified; D63.1 Anemia in chronic kidney disease; N40.0 Benign prostatic hyperplasia without lower urinary tract symptoms; G62.9 Polyneuropathy, unspecified
CPT/HCPCS: 36415; 71010; 74176; 80048; 80053; 81002; 82805; 82962; 83036; 83605; 83735; 84100; 84484; 85025; 85027; 85610; 85730; 87040; 93005; 93041; 94640; 94760; 96365; 96374; 96375; 99285; J0696; J1650; J1815; J2930; A9270-GY

== ENCOUNTER 2017-04-17 02:48 | Observation (INO) | payer MEDICARE ==
[2017-04-17] MEDS ORDERED: DUONEB 0.5-3 MG/3 ml Neb IH ONE ×2 (03:10→03:48)
[2017-04-17] MEDS ORDERED: ROCEPHIN 1 Gm-D5w 50 ml Bag** 1 G/50 ML IVPB IV STA (03:10)
--- NOTE | 2017-04-17 03:10 | ERPHSYRPT ---
- History of Present Illness Time Seen by Provider: 04/17/17 03:06 Source: patient, EMS Exam Limitations: no limitations Patient Subjective Stated Complaint: c/o increased malaise, cough, resp diff Triage Nursing Assessment: c/o SOA, cough, general malaise Physician History: increased productive cough and nonfocal general weakness and fever just 2 days - fell on bed but di dnot hit anything full ROm without pain or karmen tenderness Timing/Duration: day(s) Cough Quality/Degree: productive cough Possible Cause: occasional episodes, chronic episodes Modifying Factors: Improves With: albuterol inhaler, coughing Associated Symptoms: fever, cough, muscle aches Allergies/Adverse Reactions: morphine Adverse Reaction (Severe, Verified 04/05/16 13:06) hallucinations Home Medications: Carvedilol 3.125 mg [Coreg 3.125 MG] 6.25 mg PO BID 03/13/13 [History] Isosorbide Mononitrate [Imdur] 30 mg PO DAILY 03/13/13 [History] Aspirin 325 mg PO DAILY 04/14/13 [History] Clopidogrel Bisulfate 75 mg [PLAVIX 75 MG Tablet] 75 mg PO DAILY 10/29/14 [History] Atorvastatin Calcium 80 mg PO DAILY 02/16/15 [History] Furosemide 20 mg [Lasix 20 mg] 20 mg PO BID 05/14/15 [History] Magnesium Oxide [Magnesium] 400 mg PO BID 02/25/16 [History] Tamsulosin HCl 0.4 mg [Flomax 0.4 MG] 0.4 mg PO DAILY 07/15/16 [History] Metformin HCl 500 mg [Glucophage 500 MG] 500 mg PO BIDWM 11/11/16 [History ] Albuterol 2.5 mg/3 ml Neb [Proventil 2.5 mg/3 ml Neb] 2.5 mg IH UD [History] Nitroglycerin 0.4 mg (Ed) [Nitrostat 0.4 MG (ED)] 0.4 mg SL UD PRN [History] Allopurinol 100 mg [Zyloprim 100 mg] 1 tab PO BID 04/17/17 [History] Docusate Sodium 04/17/17 [History] Loperamide HCl 2 mg [Imodium 2 mg] 1 tab PO Q8HPRN PRN 04/17/17 [History] Hx Tetanus, Diphtheria Vaccination/Date Given: Yes Hx Influenza Vaccination/Date Given: Yes Hx Pneumococcal Vaccination/Date Given: Yes Immunizations Up to Date: Yes - Review of Systems Constitutional: Fever, No Chills Eyes: No Symptoms Ears, Nose, & Throat: No Symptoms Respiratory: Cough, Dyspnea Cardiac: No Chest Pain, No Edema, No Syncope Abdominal/Gastrointestinal: No Abdominal Pain, No Nausea, No Vomiting, No Diarrhea Genitourinary Symptoms: No Dysuria Musculoskeletal: No Back Pain, No Neck Pain Skin: No Rash Neurological: No Dizziness, No Focal Weakness, No Sensory Changes Psychological: No Symptoms Endocrine: No Symptoms All Other Systems: Reviewed and Negative - Past Medical History Pertinent Past Medical History: Yes Neurological History: Peripheral Neuropathy ENT History: No Pertinent History Cardiac History: Angina, Congestive Heart Failure, Coronary Artery Disease, High Cholesterol, Hypertension, Myocardial Infarction (OK) Respiratory History: Bronchitis, COPD, Emphysema, Pneumonia, Other Endocrine Medical History: Diabetes Type II Musculoskeletal History: Arthritis GI Medical History: No Pertinent History History: Renal Disease Psycho-Social History: Depression Male Reproductive Disorders: No Pertinent History Other Medical History: Hx vision problems. Hx chronic kidney disease. DM with uncontrolled sugars - Past Surgical History Past Surgical History: Yes Neuro Surgical History: No Pertinent History Cardiac: CABG, Cardiac Catheterization, Cardiac Stent Respiratory: No Pertinent History Gastrointestinal: Cholecystectomy Genitourinary: No Pertinent History Musculoskeletal: Other Male Surgical History: No Pertinent History Other Surgical History: BILATERAL CAROTID. 5 cardiac stents, hand surg - Social History Smoking Status: Former smoker How long have you smoked: 40 years Exposure to second hand smoke: No Drug Use: none Patient Lives Alone: No - Nursing Vital Signs Nursing Vital Signs: Initial Vital Signs Respiratory Rate 20 04/17/17 02:52 O2 Sat by Pulse Oximetry 92 L 04/17/17 02:52 Pain Scale Pain Intensity 4 - Physical Exam General Appearance: no apparent distress, alert Eye Exam: PERRL/EOMI, eyes nml inspection Ears, Nose, Throat Exam: normal ENT inspection, TMs normal, pharynx normal, moist mucous membranes Neck Exam: normal inspection, non-tender, supple, full range of motion Respiratory Exam: normal breath sounds, lungs clear, No respiratory distress Cardiovascular Exam: regular rate/rhythm, normal heart sounds Gastrointestinal/Abdomen Exam: soft, No tenderness Rectal Exam: deferred Back Exam: normal inspection, No CVA tenderness, No vertebral tenderness Extremity Exam: normal inspection, normal range of motion Neurologic Exam: alert, oriented x 3, cooperative, normal mood/affect, sensation nml, No motor deficits Skin Exam: normal color, warm, dry, No rash Lymphatic Exam: No adenopathy SpO2 Interpretation: borderline oxygenation SpO2: 92 Oxygen Delivery: Room Air - Course Nursing assessment & vital signs reviewed: Yes EKG Interpreted by Me: Sinus Rhythm, Left Burdette Deviation, Right Bundle Branch Block, Non-specific ST Changes - Radiology Exams Chest X-ray Interpretation: Reviewed by me, Other (bilateral increased interstitial markings) Ordered Tests: Active Orders 24 hr Category Date Time Status Route Delivery Supervisor STAT Care 04/17/17 03:13 Active Clean Catch Urine Specimen STAT Care 04/17/17 03:10 Active EKG-ER Only STAT Care 04/17/17 03:10 Active IV Insertion STAT Care 04/17/17 03:10 Active Oxygen-ED Only NASAL CANNULA 2 lpm Care 04/17/17 03:10 Active Pulse Oximetry (ED) STAT Care 04/17/17 03:10 Active CHEST 1 VIEW (PORTABLE) Stat Exams 04/17/17 03:11 Taken CBC W DIFF Stat Lab 04/17/17 03:30 Completed CMP Stat Lab 04/17/17 03:30 Completed Lactic Acid Stat Lab 04/17/17 04:00 Results NT PRO BNP Stat Lab 04/17/17 03:30 Completed TROPONIN Q3H Lab 04/17/17 03:30 Completed TROPONIN Q3H Lab 04/17/17 06:15 Ordered TROPONIN Q3H Lab 04/17/17 09:15 Ordered TROPONIN Q3H Lab 04/17/17 12:15 Ordered TROPONIN Q3H Lab 04/17/17 15:15 Ordered UA W/RFX UR CULTURE Stat Lab 04/17/17 03:11 Ordered Respiratory Nebulizer STAT RT 04/17/17 03:14 Completed Medication Summary Generic Name Dose Route Start Last Admin Trade Name Freq PRN Reason Stop Dose Admin Sodium Chloride 1,000 mls @ 100 mls/hr 04/17/17 03:15 04/17/17 03:56 Sodium Chloride 0.9% 1000 Ml IV 05/17/17 03:14 100 mls/hr .Q10H CHRISTI Administration Discontinued Medications Generic Name Dose Route Start Last Admin Trade Name Colin PRN Reason Stop Dose Admin Albuterol/Ipratropium 3 ml 04/17/17 03:10 04/17/17 03:49 Duoneb 0.5-3 Mg/3 Ml Neb IH 04/17/17 03:11 3 ml STAT ONE Administration Albuterol/Ipratropium Confirm 04/17/17 03:48 Duoneb 0.5-3 Mg/3 Ml Neb Administered 04/17/17 03:49 Dose 3 ml IH .STK-MED ONE Ceftriaxone Sodium/Dextrose 1 g in 50 mls @ 100 mls/hr 04/17/17 03:10 03:56 Rocephin 1 Gm-D5w 50 Ml Bag IV 04/17/17 03:39 100 mls/hr STAT STA Administration Ceftriaxone Sodium/Dextrose Confirm 04/17/17 03:46 Rocephin 1 Gm-D5w 50 Ml Bag Administered 04/17/17 03:47 Dose 1 g in 50 mls @ ud IV .STK-MED ONE Nitroglycerin 1 gm 04/17/17 05:13 04/17/17 05:23 Nitro-Bid 2% Ud Packets TOP 04/17/17 05:14 1 gm STAT ONE Administration Nitroglycerin Confirm 04/17/17 05:18 Nitro-Bid 2% Ud Packets Administered 04/17/17 05:19 Dose 1 gm .ROUTE .STK-MED ONE Oseltamivir Phosphate 75 mg 04/17/17 05:11 04/17/17 05:23 Tamiflu 75mg Capsule PO 04/17/17 05:12 75 mg STAT ONE Administration Oseltamivir Phosphate Confirm 04/17/17 05:18 Tamiflu 75mg Capsule Administered 04/17/17 05:19 Dose 75 mg PO .STK-MED ONE Lab/Rad Data: Laboratory Result Diagrams 04/17/17 03:30 04/17/17 03:30 Laboratory Results 04/17/17 04/17/17 04/17/17 Range/Units 04:00 03:30 03:30 WBC (4.0-10.5) K/mm3 RBC (4.1-5.6) M/mm3 Hgb (12.5-18.0) gm/dl Hct (42-50) % MCV (78-100) fl MCH (26-32) pg MCHC (32-36) g/dl RDW (11.5-14.0) % Plt Count (150-450) K/mm3 MPV (6-9.5) fl Gran % (36.0-66.0) % Lymphocytes % (24.0-44.0) % Monocytes % (0.0-12.0) % Eosinophils % (0.00-5.0) % Basophils % (0.0-0.4) % Basophils # (0-0.4) Sodium (136-145) mEq/L Potassium (3.5-5.1) mEq/L Chloride (98-107) mEq/L Carbon Dioxide (21-32) mEq/L Anion Gap (5-15) MEQ/L BUN (9-20) mg/dL Creatinine (0.55-1.30) mg/dl Estimated GFR ML/MIN Glucose (70-110) MG/DL Lactic Acid 2.4 H (0.4-2.0) Calcium (8.5-10.1) mg/dL Total Bilirubin (0.2-1.0) mg/dL AST (15-37) U/L ALT (12-78) U/L Alkaline Phosphatase (46-116) U/L Troponin I 0.548 H* (0.000-0.056) ng/ml NT-Pro-B Natriuret Pep (0-125) pg/ml Serum Total Protein (6.4-8.2) gm/dL Albumin (3.4-5.0) g/dL Influenza Type A Ag POSITIVE (NEGATIVE) Influenza Type B Ag NEGATIVE (NEGATIVE) RSV (PCR) NEGATIVE (Negative) 04/17/17 04/17/17 Range/Units 03:30 03:30 WBC 9.0 (4.0-10.5) K/mm3 RBC 4.32 (4.1-5.6) M/mm3 Hgb 11.5 L (12.5-18.0) gm/dl Hct 38.6 L (42-50) % MCV 89.4 (78-100) fl MCH 26.6 (26-32) pg MCHC 29.8 L (32-36) g/dl RDW 17.0 H (11.5-14.0) % Plt Count 146 L (150-450) K/mm3 MPV 13.7 H (6-9.5) fl Gran % 78.6 H (36.0-66.0) % Lymphocytes % 9.4 L (24.0-44.0) % Monocytes % 11.7 (0.0-12.0) % Eosinophils % 0.1 (0.00-5.0) % Basophils % 0.2 (0.0-0.4) % Basophils # 0.02 (0-0.4) Sodium 136 (136-145) mEq/L Potassium 5.2 H (3.5-5.1) mEq/L Chloride 99 (98-107) mEq/L Carbon Dioxide 27.1 (21-32) mEq/L Anion Gap 14.8 (5-15) MEQ/L BUN 35 H (9-20) mg/dL Creatinine 1.61 H (0.55-1.30) mg/dl Estimated GFR 45 ML/MIN Glucose 232 H (70-110) MG/DL Lactic Acid (0.4-2.0) Calcium 8.4 L (8.5-10.1) mg/dL Total Bilirubin 0.50 (0.2-1.0) mg/dL AST 36 (15-37) U/L ALT 23 (12-78) U/L Alkaline Phosphatase 80 (46-116) U/L Troponin I (0.000-0.056) ng/ml NT-Pro-B Natriuret Pep 7211 H (0-125) pg/ml Serum Total Protein 7.5 (6.4-8.2) gm/dL Albumin 3.2 L (3.4-5.0) g/dL Influenza Type A Ag (NEGATIVE) Influenza Type B Ag (NEGATIVE) RSV (PCR) (Negative) - Progress Progress: improved, re-examined Air Movement: good Progress Note: 04/17/17 05:[address] discussed [address] pt and Dr Corrigan covering for Dr Rouse and will consult with aerospace engineer officer armament at 04/17/17 06:[address] Richard at [facility] and they accept pt in transfer . Blood Culture(s) Obtained: No Antibiotics given: Yes Discussed with Dr.: Cindy (discussed and decided on ), Other (Dr. Richard at [facility]) Will see patient in: hospital (full admit) Counseled pt/family regarding: lab results, diagnosis, need for follow-up, rad results - Departure Time of Disposition: 06:09 Departure Disposition: Transfer Clinical Impression: Coronary artery disease, Elevated troponin, Influenza A, CHF (congestive heart failure) Condition: Good Critical Care Time: No Referrals: MAO ROUSE [Primary Care Provider] - Instructions: Heart Failure
[2017-04-17] MEDS ORDERED: Sodium Chloride 0.9% 1000 ML 1,000 ML IV SCH ×2 (03:15→12:18)
[2017-04-17] MEDS ORDERED: ROCEPHIN 1 Gm-D5w 50 ml Bag** 1 G/50 ML IVPB IV ONE (03:46)
[2017-04-17 04:09] LABS: Lactic Acid 2.4 (0.4-2.0)
[2017-04-17 04:17] LABS: Hemoglobin 11.5 gm/dl (12.5-18.0); Red Blood Count 4.32 M/mm3 (4.1-5.6)
[2017-04-17 04:18] LABS: BASOPHIL % 0.2 % (0.0-0.4); Basophil (Absolute #) 0.02 (0-0.4); Eosinophil % 0.1 % (0.00-5.0); Eosinophil (Absolute #) 0.01 (0-0.5); Granulocyte Absolute (ANC) 7.09 (1.4-6.9); Granulocytes % 78.6 % (36.0-66.0); Hematocrit 38.6 % (42-50); Lymphocyte (Absolute #) 0.85 (1.0-4.6); Lymphocytes % 9.4 % (24.0-44.0); Mean Cell Volume 89.4 fl (78-100); Mean Corpuscular Hemoglobin 26.6 pg (26-32); Mean Corpuscular Hgb Concent. 29.8 g/dl (32-36); Mean Platelet Volume 13.7 fl (6-9.5); Monocyte (Absolute #) 1.06 (0.0-1.3); Monocytes % 11.7 % (0.0-12.0); Platelet Count 146 K/mm3 (150-450)
[2017-04-17 04:33] LABS: ALBUMIN 3.2 g/dL (3.4-5.0); ANION GAP 14.8 MEQ/L (5-15); BILIRUBIN,TOTAL 0.5 mg/dL (0.2-1.0); Calcium 8.4 mg/dL (8.5-10.1); Carbon Dioxide 27.1 mEq/L (21-32); Creatinine 1 1.61 mg/dl (0.55-1.30); Potassium 5.2 mEq/L (3.5-5.1); Total Protein 7.5 gm/dL (6.4-8.2)
[2017-04-17 05:11] LABS: INFLUENZA A POSITIVE (NEGATIVE); INFLUENZA B NEGATIVE (NEGATIVE); RESPIRATORY SYNCTIAL VIRUS NEGATIVE (Negative)
[2017-04-17] MEDS ORDERED: Tamiflu 75MG Capsule PO ONE ×2 (05:11→05:18)
[2017-04-17] MEDS ORDERED: NITRO-BID 2% UD PACKETS TOP ONE (05:13)
[2017-04-17] MEDS ORDERED: NITRO-BID 2% UD PACKETS ONE (05:18)
[2017-04-17] MEDS ORDERED: BABY ASPIRIN 81 MG CHEW PO ONE (07:27)
[2017-04-17] MEDS ORDERED: BABY ASPIRIN 81 MG CHEW ONE (07:30)
--- NOTE | 2017-04-17 09:28 | XRAY ---
Indication: Productive cough. Comparison: July 15, 2016. Portable chest remains hyperinflated and clear with a few incidental calcified granulomas. Heart is not enlarged for AP portable technique and demonstrates CABG surgery. Bony thorax intact again with mild degenerative changes. Impression: Stable nonacute chest with chronic features.
[2017-04-17] MEDS ORDERED: PROVENTIL 2.5 MG/3 ML NEB IH ONE ×2 (11:09→11:25)
[2017-04-17] MEDS ORDERED: TYLENOL 325 MG PO ONE (11:10)
[2017-04-17] MEDS ORDERED: TYLENOL 325 MG ONE (11:16)
[2017-04-17] MEDS ORDERED: XYLOCAINE 2% Uro-Jet TOP ONE (11:20)
[2017-04-17] MEDS ORDERED: XYLOCAINE 2% Uro-Jet ONE (11:20)
[2017-04-17 11:40] LABS: Lactic Acid 1.2 (0.4-2.0); VBG BASE EXCESS -0.8 (-2.0-2.0); VBG CARBOXYHEMOGLOBIN 1.7 % T HGB (0.0-6.9); VBG HCO3- 25.8 meq/L (22-28); VBG HEMOGLOBIN 11.4; VBG O2 SATURATION 82.4 (95-100); VBG POTASSIUM 5.2 (3.5-5.1); VBG pH 7.32 (7.32-7.42)
[2017-04-17] MEDS ORDERED: NovoLOG Insulin SQ ONE (11:41)
[2017-04-17] MEDS ORDERED: NovoLOG Insulin ONE (11:52)
[2017-04-17 13:01] LABS: Appearance CLEAR (CLEAR); Bacteria FEW /HPF (NEGATIVE); Bilirubin NEGATIVE (NEGATIVE); Blood 50 Ery/ul (0-5); Epithelial Cells FEW /HPF (FEW); GRANULAR CASTS 0-2 /LPF (NEGATIVE); Glucose 1000 mg/dL (NEGATIVE); Hyaline Casts 0-2 /LPF (0-2); Ketones MODERATE (NEGATIVE); Leukocyte Esterase NEGATIVE (NEGATIVE); Mucus MODERATE /HPF (NEGATIVE); Nitrite NEGATIVE (NEGATIVE); Protein,Urine Dip 500 (Negative); Urobilinogen NORMAL mg/dL (0-1); WBC 0-2 /HPF (0-5)
[2017-04-17] MEDS ORDERED: IMODIUM 2 MG PO PRN (15:08)
[2017-04-17] MEDS ORDERED: Nitrostat 0.4 MG Tablet SL PRN (15:19)
[2017-04-17] MEDS ORDERED: PROVENTIL 2.5 MG/3 ML NEB IH PRN (15:30)
[2017-04-17] MEDS: Flomax 0.4 MG PO SCH (15:36)
[2017-04-17] MEDS: Zestril 10 MG PO SCH (15:36)
[2017-04-17] MEDS: ZOCOR 20MG PO SCH (15:36)
[2017-04-17] MEDS: PLAVIX 75 MG Tablet PO SCH (15:36)
[2017-04-17] MEDS: Imdur 30 MG PO SCH (15:36)
[2017-04-17] MEDS: Glucophage 500 MG PO SCH (15:37)
[2017-04-17] MEDS: DUONEB 0.5-3 MG/3 ml Neb IH SCH ×3 (16:00→23:31)
[2017-04-17] MEDS: NovoLOG Insulin SQ PRN ×2 (16:09→23:57)
[2017-04-17] MEDS ORDERED: Sodium Chloride 0.9% 10 ML FLUSH Syringe IV PRN (16:55)
[2017-04-17] MEDS ORDERED: LASIX 20 MG PO SCH (17:00)
[2017-04-17] MEDS: ENOXAPARIN SODIUM SQ SCH (17:19)
[2017-04-17] MEDS: COREG 12.5 MG PO SCH (23:49)
[2017-04-17] MEDS: Lasix 40 MG/4 ML IV SCH (23:49)
[2017-04-17] MEDS: Colace 100 MG PO PRN (23:49)
[2017-04-17] MEDS: Tamiflu 75MG Capsule PO SCH (23:50)
[2017-04-17] MEDS: MAG-OX 400 PO SCH (23:50)
[2017-04-17] MEDS: Sodium Chloride 0.9% 10 ML FLUSH Syringe IV SCH (23:50)
[2017-04-17] MEDS: ZYLOPRIM 100 MG PO SCH (23:50)
[2017-04-18] MEDS: DUONEB 0.5-3 MG/3 ml Neb IH SCH ×5 (03:04→19:12)
[2017-04-18 05:18] LABS: VBG CARBOXYHEMOGLOBIN 1.6 % T HGB (0.0-6.9); VBG HCO3- 31.6 meq/L (22-28); VBG HEMOGLOBIN 10.5; VBG O2 SATURATION 79.5 (95-100); VBG pH 7.36 (7.32-7.42)
[2017-04-18 05:48] LABS: BASOPHIL % 0.1 % (0.0-0.4); Basophil (Absolute #) 0.01 (0-0.4); Eosinophil (Absolute #) 0 (0-0.5); Granulocyte Absolute (ANC) 6.34 (1.4-6.9); Granulocytes % 72.9 % (36.0-66.0); Hematocrit 33.7 % (42-50); Hemoglobin 10.1 gm/dl (12.5-18.0); Lymphocyte (Absolute #) 0.98 (1.0-4.6); Lymphocytes % 11.3 % (24.0-44.0); Mean Cell Volume 88.9 fl (78-100); Mean Corpuscular Hemoglobin 26.6 pg (26-32); Mean Platelet Volume 13.3 fl (6-9.5); Monocyte (Absolute #) 1.37 (0.0-1.3); Monocytes % 15.7 % (0.0-12.0); Platelet Count 143 K/mm3 (150-450); Red Blood Count 3.79 M/mm3 (4.1-5.6); Red Cell Distribution Width 16.6 % (11.5-14.0); White Blood Count 8.7 K/mm3 (4.0-10.5)
[2017-04-18 06:20] LABS: ALBUMIN 2.5 g/dL (3.4-5.0); ANION GAP 10.4 MEQ/L (5-15); BILIRUBIN,TOTAL 0.2 mg/dL (0.2-1.0); Calcium 8.1 mg/dL (8.5-10.1); Carbon Dioxide 29.4 mEq/L (21-32); Creatinine 1 1.91 mg/dl (0.55-1.30); Total Protein 6.1 gm/dL (6.4-8.2)
--- NOTE | 2017-04-18 07:41 | HP ---
CHIEF COMPLAINT: Shortness of breath, fever and chills. HISTORY OF PRESENT ILLNESS: The patient is a 71 year-old white male patient who reports he has been getting sick over the past couple of days. He reports his was sick first. He began having problems with increasing shortness of breath and apparently had fallen at home. They brought him to the emergency room for evaluation and management and admitted to the hospital with diagnosis of influenza A, congestive heart failure and chronic obstructive pulmonary disease exacerbation. PAST MEDICAL/SURGICAL HISTORY: Significant for diabetes mellitus type 2, chronic obstructive pulmonary disease, coronary artery disease. HOME MEDICATIONS: Carvedilol 6.25 mg b.i.d., isosorbide 30 mg a day, aspirin 325 mg a day, Plavix 75 mg daily, atorvastatin 80 mg a day, Lasix 20 mg b.i.d., magnesium 400 mg b.i.d., Tamsulosin 0.4 mg daily, Metformin 500 mg b.i.d., albuterol nebulizer treatments, nitroglycerin PRN, Zyloprim 100 mg b.i.d. ALLERGIES: MORPHINE. PHYSICAL EXAMINATION: Revealed an obese white male patient in mild to moderate distress due to his shortness of breath. His respiratory rate is noted to be 20. His O2 saturations 92% on supplemental oxygen. HEENT: Normocephalic, atraumatic. Pupils equal round reactive to light. Extraocular movements intact. Oropharynx is dry. NECK: Supple without lymphadenopathy, thyromegaly or JVD. CHEST: Essentially clear. HEART: Currently regular rate and rhythm without significant murmurs, rubs or gallops. ABDOMEN: Soft, nontender, nondistended without hepatosplenomegaly or masses. EXTREMITIES: Without clubbing, cyanosis or edema. NEUROLOGIC: The patient is alert and oriented x3. No focal deficits noted. LAB DATA AND TESTS: Chest x-ray showed stable nonacute chest with chronic features. His troponins were significantly elevated at 0.5. His lactic acid was not elevated however at 1.0. His nonfasting sugar was 232, BUN 35, creatinine 1.61. Potassium was slightly high at 5.2. Liver enzymes were normal. ProBNP was elevated at 7,211. His first lactic acid was 2.4. The patient did test positive for influenza A as well. ASSESSMENT: A patient with influenza A triggering congestive heart failure and chronic obstructive pulmonary disease exacerbation. The patient has been admitted to the hospital on telemetry. He has received Lasix after which he is currently diuresing nicely and feeling somewhat better. His O2 saturation presently is 93% on 3 liters nasal cannula. His elevated troponins are felt to be secondary to his renal insufficiency with the possibility of myocardial injury. His troponins are falling at the present time. He does have right bundle branch block pattern with T-wave inversion in V1 but no acute ST-T wave changes otherwise. The patient is now on telemetry receiving oxygen, nebulizer treatments. He will be placed on Tamiflu 75 mg b.i.d. and will continue his usual home medications and monitor for any worsening of his respiratory condition.
[2017-04-18] MEDS: Sodium Chloride 0.9% 10 ML FLUSH Syringe IV SCH ×3 (08:00→21:27)
[2017-04-18] MEDS: Glucophage 500 MG PO SCH ×3 (08:00→17:44)
[2017-04-18] MEDS: NovoLOG Insulin SQ PRN ×4 (08:00→21:13)
[2017-04-18] MEDS: PLAVIX 75 MG Tablet PO SCH (09:42)
[2017-04-18] MEDS: ZYLOPRIM 100 MG PO SCH ×2 (09:42→21:12)
[2017-04-18] MEDS: Ecotrin 325 MG PO SCH (09:42)
[2017-04-18] MEDS: Flomax 0.4 MG PO SCH (09:42)
[2017-04-18] MEDS: ROCEPHIN 1 Gm-D5w 50 ml Bag** 1 G/50 ML IVPB IV SCH (09:43)
[2017-04-18] MEDS: MAG-OX 400 PO SCH ×2 (09:43→21:12)
[2017-04-18] MEDS: Tamiflu 75MG Capsule PO SCH ×2 (09:43→21:12)
[2017-04-18] MEDS: COREG 12.5 MG PO SCH ×2 (09:43→21:13)
[2017-04-18] MEDS: ENOXAPARIN SODIUM SQ SCH (09:43)
[2017-04-18] MEDS: ZOCOR 20MG PO SCH (09:43)
[2017-04-18] MEDS: Zestril 10 MG PO SCH (09:43)
[2017-04-18] MEDS: Imdur 30 MG PO SCH (09:43)
[2017-04-18] MEDS: Lasix 40 MG/4 ML IV SCH ×2 (09:43→21:13)
[2017-04-18] MEDS: TYLENOL 325 MG PO PRN (09:53)
[2017-04-18] MEDS ORDERED: NON-FORMULARY ITEM (Aspirin [Aspirin] 325 MG) PO SCH (10:00)
[2017-04-18] MEDS: Colace 100 MG PO PRN (21:12)
[2017-04-19] MEDS: DUONEB 0.5-3 MG/3 ml Neb IH SCH ×7 (00:02→23:12)
[2017-04-19] MEDS: TYLENOL 325 MG PO PRN (00:15)
[2017-04-19 05:43] LABS: BASOPHIL % 0.3 % (0.0-0.4); Basophil (Absolute #) 0.02 (0-0.4); Eosinophil % 1.2 % (0.00-5.0); Eosinophil (Absolute #) 0.08 (0-0.5); Granulocyte Absolute (ANC) 4.22 (1.4-6.9); Granulocytes % 60.7 % (36.0-66.0); Hematocrit 34.4 % (42-50); Hemoglobin 10.3 gm/dl (12.5-18.0); Lymphocyte (Absolute #) 1.58 (1.0-4.6); Lymphocytes % 22.7 % (24.0-44.0); Mean Cell Volume 90.3 fl (78-100); Mean Corpuscular Hgb Concent. 29.9 g/dl (32-36); Mean Platelet Volume 12.9 fl (6-9.5); Monocyte (Absolute #) 1.05 (0.0-1.3); Monocytes % 15.1 % (0.0-12.0); Platelet Count 143 K/mm3 (150-450); Red Blood Count 3.81 M/mm3 (4.1-5.6); Red Cell Distribution Width 16.9 % (11.5-14.0)
[2017-04-19 06:59] LABS: ANION GAP 8.9 MEQ/L (5-15); Calcium 8.1 mg/dL (8.5-10.1); Carbon Dioxide 32.2 mEq/L (21-32); Creatinine 1 1.74 mg/dl (0.55-1.30); Potassium 5.1 mEq/L (3.5-5.1)
[2017-04-19] MEDS: COREG 12.5 MG PO SCH ×2 (08:28→21:44)
[2017-04-19] MEDS: MAG-OX 400 PO SCH ×2 (08:28→21:44)
[2017-04-19] MEDS: ZYLOPRIM 100 MG PO SCH ×2 (08:28→21:44)
[2017-04-19] MEDS: Imdur 30 MG PO SCH (08:28)
[2017-04-19] MEDS: Flomax 0.4 MG PO SCH (08:28)
[2017-04-19] MEDS: PLAVIX 75 MG Tablet PO SCH (08:28)
[2017-04-19] MEDS: ROCEPHIN 1 Gm-D5w 50 ml Bag** 1 G/50 ML IVPB IV SCH (08:28)
[2017-04-19] MEDS: ENOXAPARIN SODIUM SQ SCH (08:28)
[2017-04-19] MEDS: Glucophage 500 MG PO SCH ×3 (08:28→17:23)
[2017-04-19] MEDS: Ecotrin 325 MG PO SCH (08:28)
[2017-04-19] MEDS: Zestril 10 MG PO SCH (08:29)
[2017-04-19] MEDS: ZOCOR 20MG PO SCH (08:29)
[2017-04-19] MEDS: Lasix 40 MG/4 ML IV SCH ×2 (08:29→21:45)
[2017-04-19] MEDS: Tamiflu 75MG Capsule PO SCH ×2 (08:29→21:44)
[2017-04-19] MEDS: Colace 100 MG PO PRN (08:57)
[2017-04-19] MEDS: NovoLOG Insulin SQ PRN ×4 (08:57→21:45)
[2017-04-19] MEDS: Sodium Chloride 0.9% 10 ML FLUSH Syringe IV SCH ×3 (08:57→21:45)
[2017-04-19] MEDS ORDERED: MILK OF MAGNESIA 30 ML PO PRN (09:57)
[2017-04-19] MEDS: PROTONIX 40 MG IV IV SCH (11:10)
--- NOTE | 2017-04-19 12:10 | XRAY ---
Indication: Positive for flu. Comparison: April 17, 2017. PA/lateral chest unchanged again hyperinflated without focal infiltrate, consolidation, or large effusion. Heart and mediastinal structures within normal limits. No new/acute findings.
[2017-04-20] MEDS: DUONEB 0.5-3 MG/3 ml Neb IH SCH (03:29)
[2017-04-20] MEDS: Sodium Chloride 0.9% 10 ML FLUSH Syringe IV SCH (05:39)
[2017-04-20 05:46] VITALS: O2SAT 95
[2017-04-20 07:30] VITALS: BP 127/60; PULSE 63
[2017-04-20] MEDS: NovoLOG Insulin SQ PRN (07:41)
[2017-04-20] MEDS: Glucophage 500 MG PO SCH (08:00)
--- NOTE | 2017-04-20 08:48 | ECHO ---
DATE OF PROCEDURE: 04/17/2017 CLINICAL INFORMATION: Congestive heart failure. The M-mode 2D, and Doppler echocardiogram including color flow Doppler shows moderately severe left ventricular systolic dysfunction with a left ventricular ejection fraction between 25 and 30%. The left ventricle is severely dilated with a dimension of 7.3 cm. The septal wall is thickened at 1.6 cm. The left ventricular posterior wall is thickened at 1.6 cm. There is no apical thrombus present. The right ventricle appears to be normal in size and function. There is mild mitral regurgitation present. The left atrium is borderline dilated with a dimension of 4.1 cm. The interatrial septum is intact. The right atrium is normal. The aortic valve opens well with evidence of mild sclerosis. There is mild mitral regurgitation present. The tricuspid valve is normal. The pulmonic valve is not well visualized. The aortic root is normal at 3.6 cm. There is no pericardial effusion present. The mitral valve E to A inflow velocity ratio is decreased at 0.8 consistent with impaired left ventricular relaxation. IMPRESSION: 1) MODERATELY SEVERE LEFT VENTRICULAR SYSTOLIC DYSFUNCTION. 2) SEVERELY DILATED LEFT VENTRICLE. 3) MODERATE CONCENTRIC LEFT VENTRICULAR HYPERTROPHY. 4) EVIDENCE OF IMPAIRED LEFT VENTRICULAR RELAXATION. 5) MILD MITRAL REGURGITATION. 6) THERE IS NO EVIDENCE OF PERICARDIAL EFFUSION.
--- NOTE | 2017-04-20 08:58 | PCM.DCORD ---
- Discharge Discharge Date: 04/20/17 Disposition: HOME HEALTH SERVICE Condition: Fair Prescriptions: New Amoxicillin/Potassium Clav [Augmentin 875 mg (Amox Tr-K Clv 875-125 mg)] 1 each PO BID 5 Days #10 tablet Oseltamivir 75 mg [Tamiflu 75MG Capsule] 75 mg PO BID 2 Days #4 cap Continue Isosorbide Mononitrate [Imdur] 30 mg PO DAILY Aspirin 325 mg PO DAILY Clopidogrel Bisulfate 75 mg [PLAVIX 75 MG Tablet] 75 mg PO DAILY Atorvastatin Calcium 80 mg PO DAILY Furosemide 20 mg [Lasix 20 mg] 20 mg PO BID Magnesium Oxide [Magnesium] 400 mg PO BID Tamsulosin HCl 0.4 mg [Flomax 0.4 MG] 0.4 mg PO DAILY Metformin HCl 500 mg [Glucophage 500 MG] 500 mg PO BIDWM Nitroglycerin 0.4 mg (Ed) [Nitrostat 0.4 MG (ED)] 0.4 mg SL UD PRN PRN Reason: Chest Pain Albuterol 2.5 mg/3 ml Neb [Proventil 2.5 mg/3 ml Neb] 2.5 mg IH UD Allopurinol 100 mg [Zyloprim 100 mg] 1 tab PO BID Docusate Sodium 100 mg PO DAILY PRN PRN PRN Reason: Constipation Loperamide HCl 2 mg [Imodium 2 mg] 1 tab PO Q8HPRN PRN PRN Reason: Diarrhea Carvedilol 12.5 mg PO BID Lisinopril 10 mg PO DAILY Instructions: Heart Failure Additional Instructions: discharge home with visiting nurses/home health. physical therapy to continue at home with visiting nurses Follow up with: MAO PURCELL [Primary Care Provider] -
[2017-04-20] MEDS: ZOCOR 20MG PO SCH (10:02)
[2017-04-20] MEDS: COREG 12.5 MG PO SCH (10:03)
[2017-04-20] MEDS: ENOXAPARIN SODIUM SQ SCH (10:03)
[2017-04-20] MEDS: Tamiflu 75MG Capsule PO SCH (10:03)
[2017-04-20] MEDS: Flomax 0.4 MG PO SCH (10:03)
[2017-04-20] MEDS: PROTONIX 40 MG IV IV SCH (10:03)
[2017-04-20] MEDS: Imdur 30 MG PO SCH (10:03)
[2017-04-20] MEDS: MAG-OX 400 PO SCH (10:03)
[2017-04-20] MEDS: Zestril 10 MG PO SCH (10:03)
[2017-04-20] MEDS: PLAVIX 75 MG Tablet PO SCH (10:03)
[2017-04-20] MEDS: ROCEPHIN 1 Gm-D5w 50 ml Bag** 1 G/50 ML IVPB IV SCH (10:03)
[2017-04-20] MEDS: Lasix 40 MG/4 ML IV SCH (10:03)
[2017-04-20] MEDS: Ecotrin 325 MG PO SCH (10:03)
[2017-04-20] MEDS: ZYLOPRIM 100 MG PO SCH (10:04)
--- NOTE | 2017-04-25 10:41 | DS ---
DISCHARGE DIAGNOSES: 1) INFLUENZA. 2) CHRONIC OBSTRUCTIVE PULMONARY DISEASE EXACERBATION. 3) HYPOXIA. 4) CORONARY ARTERY DISEASE. 5) HISTORY OF CONGESTIVE HEART FAILURE. 6) DIABETES MELLITUS TYPE 2. 7) DIABETIC FOOT WOUND. 8) FALL. HISTORY: The patient is a 71 year-old white male patient who presented to the emergency room after having increasing weakness and shortness of breath. The patient was found to have influenza. He reports that he had fallen at home and was unable to care for himself in the home any longer. He was subsequently admitted to the hospital for further evaluation and management. HOSPITAL COURSE: The patient was admitted the medicine an. He was placed on Rocephin empirically. He was placed on Tamiflu for his influenza infection. He was given oxygen support. He does wear oxygen at home. He was placed on Tamiflu 75 mg b.i.d. He was given Lasix for diuresis after which he did diurese quite nicely. The patient was somewhat slow to bounce back but by the morning of 04/21/2017 he appeared to be back in his usual state of health. His urine culture final was no growth. His metabolic panel on 04/19/2017 showed a sugar of 299, fasting BUN 66, creatinine 1.74. His hemoglobin was 10.3. White blood cell count 7,000, PLT count 143,000. His liver enzymes were in the normal range. His chest x-ray showed no acute findings. Plan is for the patient to return home presently. There was some consideration of possible rehab however his insurance would not pay for rehab. The patient would have [id number] expenses that he could not afford. We therefore decided the patient would have home visiting nurses and home PT. He is discharged now with Augmentin 875 mg twice a day for additional five days and to finish a five day course of Tamiflu. He will return to the use of his usual home medications as listed in the H&P and he will have follow up in my office in the next week or two depending on his ability to get out and see us.
== END 2017-04-20 11:30 | disposition home health service (06) ==
LOC: ED 02:48 → MED SURG 12:10 → INTOOBSV 12:10 → OBSVTOIN 16:09
PROVIDERS: ADMIT Family Medicine; ATTEND Family Medicine
DX: J11.1 Influenza due to unidentified influenza virus with other respiratory manifestations (principal); J44.1 Chronic obstructive pulmonary disease with (acute) exacerbation; R09.02 Hypoxemia; I25.10 Atherosclerotic heart disease of native coronary artery without angina pectoris; I50.9 Heart failure, unspecified; E11.621 Type 2 diabetes mellitus with foot ulcer; Z79.4 Long term (current) use of insulin
CPT/HCPCS: 36415; 51702; 71045; 71046; 80048; 80053; 81000; 82805; 82947; 82962; 83036; 83605; 83880; 84484; 85025; 87086; 87631; 93005; 93041; 93268; 93306; 94150; 94640; 94667; 94760; 96360; 96365; 99285; G0378; J0696; J1650; J1940; A9270-GY

== ENCOUNTER 2018-03-26 23:28 | Emergency (ER) | payer MEDICARE ==
[2018-03-26] MEDS ORDERED: Lasix 40 MG/4 ML IV ONE (23:55)
[2018-03-26] MEDS ORDERED: DUONEB 0.5-3 MG/3 ml Neb IH ONE (23:56)
[2018-03-26] MEDS ORDERED: ROCEPHIN 1 Gm-D5w 50 ml Bag** 1 G/50 ML IVPB IV STA (23:56)
[2018-03-26] MEDS ORDERED: Zithromax 500 MG/ 250 ML NaCl Premix 500 MG/250 ML IVPB IV STA (23:56)
[2018-03-26] MEDS ORDERED: Lasix 40 MG/4 ML ONE (23:59)
[2018-03-27] MEDS ORDERED: Zithromax 500 MG/ 250 ML NaCl Premix 500 MG/250 ML IVPB IV ONE (00:13)
[2018-03-27] MEDS ORDERED: ROCEPHIN 1 Gm-D5w 50 ml Bag** 1 G/50 ML IVPB IV ONE (00:13)
[2018-03-27] MEDS ORDERED: DUONEB 0.5-3 MG/3 ml Neb IH ONE (00:16)
[2018-03-27 00:22] LABS: BASOPHIL % 0.2 % (0.0-0.4); Basophil (Absolute #) 0.02 (0-0.4); Eosinophil % 0.9 % (0.00-5.0); Eosinophil (Absolute #) 0.08 (0-0.5); Granulocyte Absolute (ANC) 6.79 (1.4-6.9); Granulocytes % 76.1 % (36.0-66.0); Hematocrit 32.5 % (42-50); Hemoglobin 9.4 gm/dl (12.5-18.0); Lymphocytes % 12.3 % (24.0-44.0); Mean Cell Volume 95.3 fl (78-100); Mean Corpuscular Hgb Concent. 28.9 g/dl (32-36); Mean Platelet Volume 13.1 fl (6-9.5); Monocyte (Absolute #) 0.94 (0.0-1.3); Monocytes % 10.5 % (0.0-12.0); Platelet Count 120 K/mm3 (150-450); Red Blood Count 3.41 M/mm3 (4.1-5.6); Red Cell Distribution Width 19.3 % (11.5-14.0); White Blood Count 8.9 K/mm3 (4.0-10.5)
[2018-03-27 00:36] LABS: Mean Corpuscular Hemoglobin 27.5 pg (26-32)
[2018-03-27 00:43] LABS: ALBUMIN 3.8 g/dL (3.5-5.0); ANION GAP 10.1 MEQ/L (5-15); BILIRUBIN,TOTAL 0.5 mg/dL (0.2-1.3); Calcium 8.7 mg/dL (8.4-10.2); Creatinine 1 1.42 mg/dL (0.66-1.25); MAGNESIUM 2.5 mg/dL (1.6-2.3); Potassium 4.9 mmol/L (3.5-5.1)
[2018-03-27 00:59] LABS: INR 1.06 (0.8-3.0); PROTIME 12.3 SECONDS (8.83-12.87)
[2018-03-27 01:18] LABS: INFLUENZA A NEGATIVE (NEGATIVE); INFLUENZA B NEGATIVE (NEGATIVE); RESPIRATORY SYNCTIAL VIRUS NEGATIVE (Negative)
[2018-03-27] MEDS ORDERED: Ativan 2 MG/1 ML VIAL IV ONE (01:24)
[2018-03-27] MEDS ORDERED: Ativan 2 MG/1 ML VIAL ONE (01:29)
[2018-03-27] MEDS ORDERED: ELIQUIS 2.5 MG TABLET PO STA (01:34)
[2018-03-27 01:39] LABS: Appearance CLEAR (CLEAR); Bacteria RARE /HPF (NEGATIVE); Bilirubin NEGATIVE (NEGATIVE); Blood SMALL Ery/ul (0-5); Glucose NEGATIVE (NEGATIVE); Ketones NEGATIVE (NEGATIVE); Leukocyte Esterase NEGATIVE (NEGATIVE); Nitrite NEGATIVE (NEGATIVE); Protein,Urine Dip 30 (Negative); Specific Gravity 1.008 (1.005-1.025); Urobilinogen NEGATIVE mg/dL (0-1); WBC 0-2 /HPF (0-5)
[2018-03-27 01:57] LABS: Slide Review 1 YES
--- NOTE | 2018-03-27 01:57 | ERPHSYRPT ---
- History of Present Illness Source: patient, family Exam Limitations: no limitations Patient Subjective Stated Complaint: pt states he has been increasingly short of breath at home. Triage Nursing Assessment: pt alert and oriented, arrive per ambulance, [facility] assist [facility]. pt short of breath at rest. exp wheezes noted bilat. o2 on at 6l per nasal can. skin pink warm and dry. Physician History: Pt is a 72 y/o male with a h/o of 5 vessels CABG and recent AICD placement two weeks ago, that presented to the ED with severe dyspnea. Pt states, that has SOB increased for the last few days, and was so SOB today that had to come to the ED. Pt denies F/C/S. No cough or sputum. Pt denies chest pain or palpitations. He states, has PND, Orthopnea, and increase in edema in LEs. Timing/Duration: day(s) Activities at Onset: none Modifying Factors: Improves With: oxygen, rest Nitro Today/Relief: provided by EMS (Nitro paste) Aspirin Treatment Today: 325 mg x 1, provided by EMS Associated Symptoms: shortness of breath Allergies/Adverse Reactions: morphine Adverse Reaction (Severe, Verified 03/26/18 23:50) hallucinations Home Medications: Isosorbide Mononitrate [Imdur] 30 mg PO DAILY 03/13/13 [History] Aspirin 325 mg PO DAILY 04/14/13 [History] Clopidogrel Bisulfate 75 mg [PLAVIX 75 MG Tablet] 75 mg PO DAILY 10/29/14 [History] Atorvastatin Calcium 80 mg PO DAILY 02/16/15 [History] Furosemide 20 mg [Lasix 20 mg] 20 mg PO BID 05/14/15 [History] Magnesium Oxide [Magnesium] 400 mg PO BID 02/25/16 [History] Tamsulosin HCl 0.4 mg [Flomax 0.4 MG] 0.4 mg PO DAILY 07/15/16 [History] Metformin HCl 500 mg [Glucophage 500 MG] 500 mg PO BIDWM 11/11/16 [History ] Albuterol 2.5 mg/3 ml Neb [Proventil 2.5 mg/3 ml Neb] 2.5 mg IH UD [History] Nitroglycerin 0.4 mg (Ed) [Nitrostat 0.4 MG (ED)] 0.4 mg SL UD PRN [History] Allopurinol 100 mg [Zyloprim 100 mg] 1 tab PO BID 04/17/17 [History] Carvedilol 12.5 mg PO BID 04/17/17 [History] Docusate Sodium 100 mg PO DAILY PRN PRN 04/17/17 [History] Lisinopril 10 mg PO DAILY 04/17/17 [History] Loperamide HCl 2 mg [Imodium 2 mg] 1 tab PO Q8HPRN PRN 04/17/17 [History] Hx Tetanus, Diphtheria Vaccination/Date Given: Yes Hx Influenza Vaccination/Date Given: Yes Hx Pneumococcal Vaccination/Date Given: Yes Immunizations Up to Date: Yes - Review of Systems Constitutional: No Fever, No Chills Respiratory: Dyspnea, Dyspnea on Exertion (WALKER), Wheezing Cardiac: Edema, Orthopnea, PND Abdominal/Gastrointestinal: No Abdominal Pain, No Nausea, No Vomiting, No Diarrhea Genitourinary Symptoms: No Dysuria Musculoskeletal: No Back Pain, No Neck Pain Neurological: No Dizziness, No Focal Weakness, No Sensory Changes - Past Medical History Pertinent Past Medical History: Yes Neurological History: Peripheral Neuropathy ENT History: No Pertinent History Cardiac History: Angina, Congestive Heart Failure, Coronary Artery Disease, High Cholesterol, Hypertension, Myocardial Infarction ([place]) Respiratory History: Bronchitis, COPD, Emphysema, Pneumonia, Other Endocrine Medical History: Diabetes Type II Musculoskeletal History: Arthritis GI Medical History: No Pertinent History History: Renal Disease Psycho-Social History: Depression Male Reproductive Disorders: No Pertinent History Other Medical History: Hx vision problems. Hx chronic kidney disease. DM with uncontrolled sugars - Past Surgical History Past Surgical History: Yes Neuro Surgical History: No Pertinent History Cardiac: CABG, Cardiac Catheterization, Cardiac Stent, Pacemaker Respiratory: No Pertinent History Gastrointestinal: Cholecystectomy Genitourinary: No Pertinent History Musculoskeletal: Other Male Surgical History: No Pertinent History Other Surgical History: BILATERAL CAROTID. 5 cardiac stents, hand surg - Social History Smoking Status: Former smoker How long have you smoked: 40 years Exposure to second hand smoke: No Drug Use: none Patient Lives Alone: No - Nursing Vital Signs Nursing Vital Signs: Initial Vital Signs Temperature 97.5 F 03/26/18 23:34 Pulse Rate 85 03/26/18 23:34 Respiratory Rate 28 H 03/26/18 23:34 Blood Pressure 182/79 03/26/18 23:34 O2 Sat by Pulse Oximetry 99 03/26/18 23:34 Pain Scale Pain Intensity 6 - Physical Exam General Appearance: moderate distress, anxiety, obese Eye Exam: PERRL/EOMI, eyes nml inspection Respiratory Exam: respiratory distress, accessory muscle use, wheezing Cardiovascular Exam: regular rate/rhythm, capillary refill <2 sec, edema Gastrointestinal/Abdomen Exam: soft, No tenderness, No mass SpO2: 97 (on 6 lit NC) O2 Delivery: Nasal Cannula (6 lit, titrated down to 4lit NC) - Course Nursing assessment & vital signs reviewed: Yes EKG Interpreted by Me: Sinus Rhythm (Paced) - Radiology Exams Chest X-ray Interpretation: Interpreted by me (CHF with small b/l effusions) Ordered Tests: Active Orders 24 hr Category Date Time Status Group Rooms Coordinator STAT Care 03/26/18 23:58 Active IV Insertion STAT Care 03/26/18 23:56 Active Oxygen-ED Only Nasal Cannula 3 lpm Care 03/26/18 23:56 Active CHEST 2 VIEWS (PA AND LAT) Stat Exams 03/27/18 00:06 Taken CHEST WITH CONTRAST [CT] Stat Exams 03/27/18 01:23 Ordered Lactic Acid Stat Lab 03/26/18 23:56 Completed TROPONIN Q3H Lab 03/27/18 02:57 Ordered TROPONIN Q3H Lab 03/27/18 05:57 Ordered TROPONIN Q3H Lab 03/27/18 08:57 Ordered TROPONIN Q3H Lab 03/27/18 11:57 Ordered UA W/RFX UR CULTURE Stat Lab 03/27/18 01:10 Completed Peak Expiratory Flow Rate ONCE RT 03/27/18 00:17 Active Respiratory Nebulizer STAT RT 03/26/18 23:59 Active Respiratory Therapy Assessment DAILY RT 03/27/18 00:17 Active Medication Summary Discontinued Medications Generic Name Dose Route Start Last Admin Trade Name Freq PRN Reason Stop Dose Admin Albuterol/Ipratropium 3 ml 03/26/18 23:56 03/27/18 00:18 Duoneb 0.5-3 Mg/3 Ml Neb IH 03/26/18 23:57 3 ml STAT ONE Administration Albuterol/Ipratropium Confirm 03/27/18 00:16 Duoneb 0.5-3 Mg/3 Ml Neb Administered 03/27/18 00:17 Dose 3 ml IH .STK-MED ONE Apixaban 10 mg 03/27/18 01:34 Eliquis 2.5 Mg Tablet PO 03/27/18 01:35 DAILY STA Furosemide 40 mg 03/26/18 23:55 03/27/18 00:04 Lasix 40 Mg/4 Ml IV 03/26/18 23:56 40 mg STAT ONE Administration Furosemide Confirm 03/26/18 23:59 Lasix 40 Mg/4 Ml Administered 03/27/18 00:00 Dose 40 mg .ROUTE .STK-MED ONE Ceftriaxone Sodium/Dextrose 1 g in 50 mls @ 100 mls/hr 03/26/18 23:56 00:21 Rocephin 1 Gm-D5w 50 Ml Bag IV 03/27/18 00:25 100 ml/hr STAT STA 100 mls/hr Administration Azithromycin 500 mg in 250 mls @ 250 mls/hr 03/26/18 23:56 03/27/18 01:02 Zithromax 500 Mg/ 250 Ml Nacl Premix IV 03/27/18 00:55 250 ml/hr STAT STA 250 mls/hr Administration Azithromycin Confirm 03/27/18 00:13 Zithromax 500 Mg/ 250 Ml Nacl Premix Administered 03/27/18 00:14 Dose 500 mg in 250 mls @ ud IV .STK-MED ONE Ceftriaxone Sodium/Dextrose Confirm 03/27/18 00:13 Rocephin 1 Gm-D5w 50 Ml Bag Administered 03/27/18 00:14 Dose 1 g in 50 mls @ ud IV .STK-MED ONE Lorazepam 2 mg 03/27/18 01:24 Ativan 2 Mg/1 Ml Vial IV 03/27/18 01:25 STAT ONE Lorazepam Confirm 03/27/18 01:29 Ativan 2 Mg/1 Ml Vial Administered 03/27/18 01:30 Dose 2 mg .ROUTE .STK-MED ONE Lab/Rad Data: Laboratory Result Diagrams 03/26/18 00:17 03/26/18 00:17 Laboratory Results 03/27/18 03/27/18 03/26/18 Range/Units 01:10 00:33 00:17 WBC (4.0-10.5) K/mm3 RBC (4.1-5.6) M/mm3 Hgb (12.5-18.0) gm/dl Hct (42-50) % MCV (78-100) fl MCH (26-32) pg MCHC (32-36) g/dl RDW (11.5-14.0) % Plt Count (150-450) K/mm3 MPV (6-9.5) fl Gran % (36.0-66.0) % Eos # (Auto) (0-0.5) Absolute Lymphs (auto) (1.0-4.6) Absolute Monos (auto) (0.0-1.3) Lymphocytes % (24.0-44.0) % Monocytes % (0.0-12.0) % Eosinophils % (0.00-5.0) % Basophils % (0.0-0.4) % Absolute Granulocytes (1.4-6.9) Basophils # (0-0.4) PT (8.83-12.87) SECONDS INR (0.8-3.0) D-Dimer (215-500) ng/mL Sodium (137-145) mmol/L Potassium (3.5-5.1) mmol/L Chloride (98-107) mmol/L Carbon Dioxide (22-30) mmol/L Anion Gap (5-15) MEQ/L BUN (9-20) mg/dL Creatinine (0.66-1.25) mg/dL Estimated GFR ML/MIN Glucose (74-106) mg/dL Lactic Acid 1.3 (0.4-2.0) Calcium (8.4-10.2) mg/dL Magnesium (1.6-2.3) mg/dL Total Bilirubin (0.2-1.3) mg/dL AST (17-59) U/L ALT (0-50) U/L Alkaline Phosphatase (38-126) U/L Troponin I 0.049 H* (0.000-0.034) ng/mL NT-Pro-B Natriuret Pep (0-900) pg/mL Serum Total Protein (6.3-8.2) g/dL Albumin (3.5-5.0) g/dL Urine Color STRAW (YELLOW) Urine Appearance CLEAR (CLEAR) Urine pH 6.0 (5-6) Ur Specific [place] 1.008 (1.005-1.025) Urine Protein 30 (Negative) Urine Ketones NEGATIVE (NEGATIVE) Urine Blood SMALL (0-5) Timi/ul Urine Nitrite NEGATIVE (NEGATIVE) Urine Bilirubin NEGATIVE (NEGATIVE) Urine Urobilinogen NEGATIVE (0-1) mg/dL Ur Leukocyte Esterase NEGATIVE (NEGATIVE) Urine WBC (Auto) 0-2 (0-5) /HPF Urine RBC (Auto) 6-10 (0-2) /HPF U Hyaline Cast (Auto) 3-5 (0-2) /LPF U Epithel Cells (Auto) NONE (FEW) /HPF Urine Bacteria (Auto) RARE (NEGATIVE) /HPF Urine Culture Reflexed NO (NO) Urine Glucose NEGATIVE (NEGATIVE) mg/dL Influenza Type A Ag (NEGATIVE) Influenza Type B Ag (NEGATIVE) RSV (PCR) (Negative) 03/26/18 03/26/18 03/26/18 Range/Units 00:17 00:17 00:17 WBC 8.9 (4.0-10.5) K/mm3 RBC 3.41 L (4.1-5.6) M/mm3 Hgb 9.4 L (12.5-18.0) gm/dl Hct 32.5 L (42-50) % MCV 95.3 (78-100) fl MCH 27.5 (26-32) pg MCHC 28.9 L (32-36) g/dl RDW 19.3 H (11.5-14.0) % Plt Count 120 L (150-450) K/mm3 MPV 13.1 H (6-9.5) fl Gran % 76.1 H (36.0-66.0) % Eos # (Auto) 0.08 (0-0.5) Absolute Lymphs (auto) 1.10 (1.0-4.6) Absolute Monos (auto) 0.94 (0.0-1.3) Lymphocytes % 12.3 L (24.0-44.0) % Monocytes % 10.5 (0.0-12.0) % Eosinophils % 0.9 (0.00-5.0) % Basophils % 0.2 (0.0-0.4) % Absolute Granulocytes 6.79 (1.4-6.9) Basophils # 0.02 (0-0.4) PT 12.3 (8.83-12.87) SECONDS INR 1.06 (0.8-3.0) D-Dimer 1895 H* (215-500) ng/mL Sodium 142 (137-145) mmol/L Potassium 4.9 (3.5-5.1) mmol/L Chloride 98 (98-107) mmol/L Carbon Dioxide 39 H (22-30) mmol/L Anion Gap 10.1 (5-15) MEQ/L BUN 63 H (9-20) mg/dL Creatinine 1.42 H (0.66-1.25) mg/dL Estimated GFR 51.9 ML/MIN Glucose 171 H (74-106) mg/dL Lactic Acid (0.4-2.0) Calcium 8.7 (8.4-10.2) mg/dL Magnesium 2.5 H (1.6-2.3) mg/dL Total Bilirubin 0.50 (0.2-1.3) mg/dL AST 33 (17-59) U/L ALT 25 (0-50) U/L Alkaline Phosphatase 97 (38-126) U/L Troponin I (0.000-0.034) ng/mL NT-Pro-B Natriuret Pep 3210 H (0-900) pg/mL Serum Total Protein 7.0 (6.3-8.2) g/dL Albumin 3.8 (3.5-5.0) g/dL Urine Color (YELLOW) Urine Appearance (CLEAR) Urine pH (5-6) Ur Specific [place] (1.005-1.025) Urine Protein (Negative) Urine Ketones (NEGATIVE) Urine Blood (0-5) Timi/ul Urine Nitrite (NEGATIVE) Urine Bilirubin (NEGATIVE) Urine Urobilinogen (0-1) mg/dL Ur Leukocyte Esterase (NEGATIVE) Urine WBC (Auto) (0-5) /HPF Urine RBC (Auto) (0-2) /HPF U Hyaline Cast (Auto) (0-2) /LPF U Epithel Cells (Auto) (FEW) /HPF Urine Bacteria (Auto) (NEGATIVE) /HPF Urine Culture Reflexed (NO) Urine Glucose (NEGATIVE) mg/dL Influenza Type A Ag (NEGATIVE) Influenza Type B Ag (NEGATIVE) RSV (PCR) (Negative) 03/26/18 Range/Units 00:12 WBC (4.0-10.5) K/mm3 RBC (4.1-5.6) M/mm3 Hgb (12.5-18.0) gm/dl Hct (42-50) % MCV (78-100) fl MCH (26-32) pg MCHC (32-36) g/dl RDW (11.5-14.0) % Plt Count (150-450) K/mm3 MPV (6-9.5) fl Gran % (36.0-66.0) % Eos # (Auto) (0-0.5) Absolute Lymphs (auto) (1.0-4.6) Absolute Monos (auto) (0.0-1.3) Lymphocytes % (24.0-44.0) % Monocytes % (0.0-12.0) % Eosinophils % (0.00-5.0) % Basophils % (0.0-0.4) % Absolute Granulocytes (1.4-6.9) Basophils # (0-0.4) PT (8.83-12.87) SECONDS INR (0.8-3.0) D-Dimer (215-500) ng/mL Sodium (137-145) mmol/L Potassium (3.5-5.1) mmol/L Chloride (98-107) mmol/L Carbon Dioxide (22-30) mmol/L Anion Gap (5-15) MEQ/L BUN (9-20) mg/dL Creatinine (0.66-1.25) mg/dL Estimated GFR ML/MIN Glucose (74-106) mg/dL Lactic Acid (0.4-2.0) Calcium (8.4-10.2) mg/dL Magnesium (1.6-2.3) mg/dL Total Bilirubin (0.2-1.3) mg/dL AST (17-59) U/L ALT (0-50) U/L Alkaline Phosphatase (38-126) U/L Troponin I (0.000-0.034) ng/mL NT-Pro-B Natriuret Pep (0-900) pg/mL Serum Total Protein (6.3-8.2) g/dL Albumin (3.5-5.0) g/dL Urine Color (YELLOW) Urine Appearance (CLEAR) Urine pH (5-6) Ur Specific [place] (1.005-1.025) Urine Protein (Negative) Urine Ketones (NEGATIVE) Urine Blood (0-5) Timi/ul Urine Nitrite (NEGATIVE) Urine Bilirubin (NEGATIVE) Urine Urobilinogen (0-1) mg/dL Ur Leukocyte Esterase (NEGATIVE) Urine WBC (Auto) (0-5) /HPF Urine RBC (Auto) (0-2) /HPF U Hyaline Cast (Auto) (0-2) /LPF U Epithel Cells (Auto) (FEW) /HPF Urine Bacteria (Auto) (NEGATIVE) /HPF Urine Culture Reflexed (NO) Urine Glucose (NEGATIVE) mg/dL Influenza Type A Ag NEGATIVE (NEGATIVE) Influenza Type B Ag NEGATIVE (NEGATIVE) RSV (PCR) NEGATIVE (Negative) - Progress Progress: unchanged Air Movement: fair Progress Note: 03/27/18 01:59 Pt was given lasix IV 40mg once. Solu Medrol was given in ambulance, as well as nebs. Rocephin and Azithromycin was given in ER. Pt had elevated D dimer in the 1800s, and ELiquis 10mg PO once was given. Pt will be transferred to [facility] PCU, with Dr Delong as accepting physician. Blood Culture(s) Obtained: No Antibiotics given: Yes Will see patient in: hospital (full admit), other (Admiting to [facility]) - Departure Time of Disposition: 02:02 Departure Disposition: Transfer (To [facility], Dr Delong) Clinical Impression: CHF exacerbation Condition: Fair Critical Care Time: No Referrals: MAO PURCELL [Primary Care Provider] - Instructions: Heart Failure
[2018-03-27] MEDS ORDERED: PROVENTIL Solution 2.5 MG/0.5 ML IH ONE (02:04)
[2018-03-27] MEDS ORDERED: PROVENTIL 2.5 MG/3 ML NEB IH ONE (02:12)
[2018-03-27 02:42] VITALS: BP 124/78
[2018-03-27 02:57] VITALS: PULSE 77; O2SAT 96
--- NOTE | 2018-03-27 09:01 | XRAY ---
Indication: Short of breath. Comparison: April 19, 2017. AP/lateral chest again demonstrates CABG surgery with new left-sided AICD. New cardiomegaly, pulmonary edema, and small bibasilar effusions favoring cardiac decompensation. Superimposed pneumonia not completely excluded.
== END 2018-03-27 03:45 | disposition short-term general hospital (02) ==
LOC: ED 23:28
DX: I50.9 Heart failure, unspecified (principal); Z95.0 Presence of cardiac pacemaker; G62.9 Polyneuropathy, unspecified; I25.810 Atherosclerosis of coronary artery bypass graft(s) without angina pectoris; E78.00 Pure hypercholesterolemia, unspecified; I25.2 Old myocardial infarction; J44.9 Chronic obstructive pulmonary disease, unspecified; E11.9 Type 2 diabetes mellitus without complications; F32.9 Major depressive disorder, single episode, unspecified; I12.9 Hypertensive chronic kidney disease with stage 1 through stage 4 chronic kidney disease, or unspecified chronic kidney disease; N18.9 Chronic kidney disease, unspecified; E11.649 Type 2 diabetes mellitus with hypoglycemia without coma; Z79.4 Long term (current) use of insulin
CPT/HCPCS: 36000; 36415; 71046; 80053; 81001; 82962; 83605; 83735; 83880; 84484; 85025; 85379; 85610; 87631; 93041; 94150; 94640; 96365; 96367; 96374; 99285; J0456; J0696; J1940; J2060; J7609; A9270-GY

== ENCOUNTER 2019-01-07 20:04 | Observation (INO) | payer MEDICARE ==
[2019-01-07] MEDS ORDERED: Sodium Chloride 0.9% 1000 ML 1,000 ML IV STA (20:11)
[2019-01-07] MEDS ORDERED: Sodium Chloride 0.9% 1000 ML 1,000 ML ONE (20:12)
--- NOTE | 2019-01-07 20:27 | ERPHSYRPT ---
- History of Present Illness Time Seen by Provider: 01/07/19 20:05 Source: patient, EMS Exam Limitations: no limitations Physician History: Patient had a brief syncopal episode at the nursing facility he lives while going to the bathroom. Patient's physician wanted him evaluated in the emergency department. Witnessed: bystander Prior Episodes: single episode today Timing/Duration: today, resolved prior to arrival, sudden Precipitating Factors: other (going to the bathroom) Context: sitting, other (bearing down) Charcter of event(s): became unresponsive Allergies/Adverse Reactions: morphine Adverse Reaction (Severe, Verified 03/26/18 23:50) hallucinations Home Medications: Isosorbide Mononitrate [Imdur] 30 mg PO DAILY 03/13/13 [History] Clopidogrel Bisulfate 75 mg [PLAVIX 75 MG Tablet] 75 mg PO DAILY 10/29/14 [History] Atorvastatin Calcium 40 mg PO HS 02/16/15 [History] Magnesium Oxide [Magnesium] 400 mg PO BID 02/25/16 [History] Tamsulosin HCl 0.4 mg [Flomax 0.4 MG] 0.4 mg PO DAILY 07/15/16 [History] Metformin HCl 500 mg [Glucophage 500 MG] 500 mg PO BIDWM 11/11/16 [History ] Nitroglycerin 0.4 mg (Ed) [Nitrostat 0.4 MG (ED)] 0.4 mg SL UD PRN [History] Allopurinol 100 mg [Zyloprim 100 mg] 1 tab PO BID 04/17/17 [History] Carvedilol 12.5 mg PO BID 04/17/17 [History] Docusate Sodium 100 mg PO DAILY PRN PRN 04/17/17 [History] Loperamide HCl 2 mg [Imodium 2 mg] 1 tab PO Q4HPRN PRN 04/17/17 [History] Acetaminophen [Tylenol] 650 mg PO Q4HPRN PRN 01/07/19 [History] Cyclobenzaprine HCl 10 mg PO Q8H PRN PRN 01/07/19 [History] Ergocalciferol (Vitamin D2) [Vitamin D2] 50,000 unit PO DAILY 01/07/19 [History] Ergocalciferol (Vitamin D2) [Vitamin D2] 50,000 units PO DAILY 01/07/19 [History ] Escitalopram Oxalate [Lexapro] 5 mg PO DAILY 01/07/19 [History] Fluticasone/Vilanterol [Breo Ellipta 100-25 Mcg INH] 1 puff PO DAILY 01/07/19 [ History] Gabapentin 100 mg PO BID 01/07/19 [History] Hum Insulin NPH/Reg Insulin Hm [Novolin 70-30 100 Unit/ml Vial] 100 units SQ CLARIFY 01/07/19 [History] HydrALAzine HCL 25 MG TAB [Apresoline 25 MG TABLET] 25 mg PO BID 01/07/19 [History] Insulin Aspart [Novolog] 100 units SQ TID PRN PRN 01/07/19 [History] Ipratropium/Albuterol Sulfate [Iprat-Albut 0.5-3(2.5) mg/3 ml] 3 ml IH Q4HPRN PRN 01/07/19 [History] Ipratropium/Albuterol Sulfate [Iprat-Albut 0.5-3(2.5) mg/3 ml] 3 ml IH Q6H 01/07 [History] Phenol Liquid [Phenol Ez] 1.4 mg BC Q2H/PRN PRN 01/07/19 [History] Torsemide 20 mg [Demadex 20 mg] 20 mg PO BID 01/07/19 [History] metOLazone [Metolazone] 5 mg PO CLARIFY 01/07/19 [History] Hx Tetanus, Diphtheria Vaccination/Date Given: Yes Hx Influenza Vaccination/Date Given: Yes Hx Pneumococcal Vaccination/Date Given: Yes - Past Medical History Pertinent Past Medical History: Yes Neurological History: Peripheral Neuropathy ENT History: No Pertinent History Cardiac History: Angina, Congestive Heart Failure, Coronary Artery Disease, High Cholesterol, Hypertension, Myocardial Infarction ([place]) Respiratory History: Bronchitis, COPD, Emphysema, Pneumonia, Other Endocrine Medical History: Diabetes Type II Musculoskeletal History: Arthritis GI Medical History: No Pertinent History History: Renal Disease Psycho-Social History: Depression Male Reproductive Disorders: No Pertinent History Other Medical History: Hx vision problems. Hx chronic kidney disease. DM with uncontrolled sugars - Past Surgical History Past Surgical History: Yes Neuro Surgical History: No Pertinent History Cardiac: CABG, Cardiac Catheterization, Cardiac Stent, Pacemaker Respiratory: No Pertinent History Gastrointestinal: Cholecystectomy Genitourinary: No Pertinent History Musculoskeletal: Other Male Surgical History: No Pertinent History Other Surgical History: BILATERAL CAROTID. 5 cardiac stents, hand surg - Social History Smoking Status: Former smoker How long have you smoked: 40 years Exposure to second hand smoke: No Drug Use: none Patient Lives Alone: No - Review of Systems Constitutional: No Fever, No Chills Eyes: No Symptoms, No Eye Pain, No Vision Changes Ears, Nose, & Throat: No Symptoms, No Painful Swallowing Respiratory: No Cough, No Dyspnea Cardiac: No Chest Pain, No Edema, No Syncope Abdominal/Gastrointestinal: No Abdominal Pain, No Nausea, No Vomiting, No Diarrhea Genitourinary Symptoms: No Dysuria, No Hematuria, No Flank Pain Musculoskeletal: No Back Pain, No Neck Pain Skin: Decubiti (painful area on the buttock area), No Pruritis, No Rash Neurological: No Dizziness, No Focal Weakness, No Sensory Changes, No Speech Changes, No Tremors Psychological: No Symptoms Endocrine: No Symptoms, No Excessive Sweating Hematologic/Lymphatic: No Easy Bleeding, No Easy Bruising All Other Systems: Reviewed and Negative Physical Exam - Nursing Vital Signs Nursing Vital Signs: Initial Vital Signs Temperature 97.6 F 01/07/19 20:12 Pulse Rate 96 H 01/07/19 20:12 Respiratory Rate 24 01/07/19 20:12 Blood Pressure 70/51 01/07/19 20:12 O2 Sat by Pulse Oximetry 97 01/07/19 20:12 Pain Scale Pain Intensity 3 - [place] Coma Scale Best Eye Response ([place]): (4) open spontaneously Best Verbal Response ([place]): (5) oriented Best Motor Response ([place]): (6) obeys commands [place] Total: 15 - Physical Exam General Appearance: no apparent distress, alert Eye Exam: bilateral eye: normal inspection, PERRL, EOMI Ears, Nose, Throat Exam: normal ENT inspection, TMs normal, pharynx normal, moist mucous membranes Neck Exam: normal inspection, non-tender, supple, full range of motion, No meningismus, No Brudzinski Respiratory: lungs clear, diminished breath sounds, No chest tenderness, No respiratory distress, No accessory muscle use, No crackles/rales, No stridor Cardiovascular: regular rate/rhythm, normal peripheral pulses, capillary refill <2 sec, No murmur, No pulse deficit Gastrointestinal: soft, other (patient has a grade I decubitus ulcer at the sacral area), No tenderness, No distention, No mass Rectal Exam: normal rectal tone, other (anal fissure noted. Chaperoned Carito Jimenez RN) Back Exam: normal inspection, normal range of motion, No CVA tenderness, No vertebral tenderness Extremity Exam: normal inspection, normal range of motion, pelvis stable, No tenderness Mental Status: alert, oriented x 3, cooperative track layer head Exam: normal speech, PERRL, No abnormal gag reflex, No facial droop, No facial paresthesias, No facial weakness, No gaze palsy, No tongue deviation to R , No tongue deviation to L Coordination/Gait: normal finger to nose Motor/Sensory: no motor deficit, no sensory deficit, No weak motor strength RUE , No weak motor strength LUE, No weak motor strength RLE, No weak motor strength LLE Skin Exam: normal color, warm, dry, No rash SpO2 Interpretation: normal SpO2: 97 O2 Delivery: Nasal Cannula - Course Nursing assessment & vital signs reviewed: Yes EKG Interpreted by Me: RATE (82), Other (Ventricular paced, unchanged in comparison to EKG from 03/26/2018) - Radiology Exams Chest X-ray Interpretation: Interpreted by me, Reviewed by me, Negative, No Pneumonia , No Pneumothorax, No Infiltrates - CT Exams Head CT Interpretation: Negative, No Fracture, No/Intracranial Hemorrhag Ordered Tests: Active Orders 24 hr Category Date Time 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 01/07/19 20:13 Active EKG-ER Only STAT Care 01/07/19 20:11 Active IV Insertion STAT Care 01/07/19 20:11 Active CHEST 1 VIEW (PORTABLE) Stat Exams 01/07/19 20:12 Taken HEAD WITHOUT CONTRAST [CT] Stat Exams 01/07/19 20:14 Taken AMYLASE Stat Lab 01/07/19 20:30 Completed BLOOD CULTURE Stat Lab 01/07/19 20:40 Received CBC W DIFF Stat Lab 01/07/19 20:30 Completed CMP Stat Lab 01/07/19 20:30 Completed CULTURE,URINE Stat Lab 01/07/19 21:30 Received LIPASE Stat Lab 01/07/19 20:30 Completed Lactic Acid Stat Lab 01/07/19 20:40 Completed Lactic Acid Stat Lab 01/07/19 22:44 Ordered MAGNESIUM Stat Lab 01/07/19 20:30 Completed Occult Blood, Other Screening Stat Lab 01/07/19 21:40 Completed PROTIME WITH INR Stat Lab 01/07/19 20:30 Completed TROPONIN Q3H Lab 01/07/19 20:30 Completed TROPONIN Q3H Lab 01/07/19 23:15 Ordered TROPONIN Q3H Lab 01/08/19 02:15 Ordered TROPONIN Q3H Lab 01/08/19 05:15 Ordered TROPONIN Q3H Lab 01/08/19 08:15 Ordered UA W/RFX UR CULTURE Stat Lab 01/07/19 21:10 Completed VENOUS BLOOD GAS Stat Lab 01/07/19 20:40 Completed Medication Summary Discontinued Medications Generic Name Dose Route Start Last Admin Trade Name Freq PRN Reason Stop Dose Admin Sodium Chloride Confirm 01/07/19 20:12 Sodium Chloride 0.9% 1000 Ml Administered 01/07/19 20:13 Dose 1,000 mls @ ud .ROUTE .STK-MED ONE Sodium Chloride 1,000 mls @ 999 mls/hr 01/07/19 20:11 01/07/19 20:34 Sodium Chloride 0.9% 1000 Ml IV 01/07/19 21:11 999 mls/hr .Q1H1M STA Administration Lab/Rad Data: Laboratory Result Diagrams 01/07/19 20:30 01/07/19 20:30 Laboratory Results 01/07/19 01/07/19 01/07/19 Range/Units 21:40 21:10 20:40 WBC (4.0-10.5) K/mm3 RBC (4.1-5.6) M/mm3 Hgb (12.5-18.0) gm/dl Hct (42-50) % MCV (78-100) fl MCH (26-32) pg MCHC (32-36) g/dl RDW (11.5-14.0) % Plt Count (150-450) K/mm3 MPV (6-9.5) fl Gran % (36.0-66.0) % Eos # (Auto) (0-0.5) Absolute Lymphs (auto) (1.0-4.6) Absolute Monos (auto) (0.0-1.3) Lymphocytes % (24.0-44.0) % Monocytes % (0.0-12.0) % Eosinophils % (0.00-5.0) % Basophils % (0.0-0.4) % Absolute Granulocytes (1.4-6.9) Basophils # (0-0.4) PT (8.83-12.87) SECONDS INR (0.8-3.0) pO2/FiO2 Ratio 36.0 % VBG pH 7.40 (7.32-7.42) VBG pCO2 at Pat Temp 68 H* (42-55) mm/Hg VBG pO2 at Pat Temp 41 H (25-40) mm/Hg VBG HCO3 42.1 H* (22-28) meq/L VBG O2 Sat (Lauro) 84.0 L (95-100) VBG Base Excess 15.3 H (-2.0-2.0) VBG Hemoglobin 8.4 VBG Carboxyhemoglobin 6.8 (0.0-6.9) % T HGB POC Potassium 3.7 (3.5-5.1) Sodium (137-145) mmol/L Potassium (3.5-5.1) mmol/L Chloride (98-107) mmol/L Carbon Dioxide (22-30) mmol/L Anion Gap (5-15) MEQ/L BUN (9-20) mg/dL Creatinine (0.66-1.25) mg/dL Estimated GFR ML/MIN Glucose (74-106) mg/dL Lactic Acid (0.4-2.0) Calcium (8.4-10.2) mg/dL Magnesium (1.6-2.3) mg/dL Total Bilirubin (0.2-1.3) mg/dL AST (17-59) U/L ALT (0-50) U/L Alkaline Phosphatase (38-126) U/L Troponin I (0.000-0.034) ng/mL Serum Total Protein (6.3-8.2) g/dL Albumin (3.5-5.0) g/dL Amylase (30-110) U/L Lipase (23-300) U/L Urine Color YELLOW (YELLOW) Urine Appearance SLIGHTLY CLOUDY (CLEAR) Urine pH 5.0 (5-6) Ur Specific [place] 1.011 (1.005-1.025) Urine Protein NEGATIVE (Negative) Urine Ketones NEGATIVE (NEGATIVE) Urine Blood LARGE (0-5) Timi/ul Urine Nitrite NEGATIVE (NEGATIVE) Urine Bilirubin NEGATIVE (NEGATIVE) Urine Urobilinogen NEGATIVE (0-1) mg/dL Ur Leukocyte Esterase NEGATIVE (NEGATIVE) Urine WBC (Auto) 0-2 (0-5) /HPF Urine RBC (Auto) >101 (0-2) /HPF U Hyaline Cast (Auto) 11-25 (0-2) /LPF U Epithel Cells (Auto) NONE (FEW) /HPF Urine Bacteria (Auto) RARE (NEGATIVE) /HPF Urine Mucus (Auto) SLIGHT (NEGATIVE) /HPF Urine Culture Reflexed ORDERED SEPARATELY (NO) Urine Glucose NEGATIVE (NEGATIVE) mg/dL Stool Occult Blood NEGATIVE (Negative) Slides for Path Review 01/07/19 01/07/19 01/07/19 Range/Units 20:40 20:30 20:30 WBC (4.0-10.5) K/mm3 RBC (4.1-5.6) M/mm3 Hgb (12.5-18.0) gm/dl Hct (42-50) % MCV (78-100) fl MCH (26-32) pg MCHC (32-36) g/dl RDW (11.5-14.0) % Plt Count (150-450) K/mm3 MPV (6-9.5) fl Gran % (36.0-66.0) % Eos # (Auto) (0-0.5) Absolute Lymphs (auto) (1.0-4.6) Absolute Monos (auto) (0.0-1.3) Lymphocytes % (24.0-44.0) % Monocytes % (0.0-12.0) % Eosinophils % (0.00-5.0) % Basophils % (0.0-0.4) % Absolute Granulocytes (1.4-6.9) Basophils # (0-0.4) PT (8.83-12.87) SECONDS INR (0.8-3.0) pO2/FiO2 Ratio % VBG pH (7.32-7.42) VBG pCO2 at Pat Temp (42-55) mm/Hg VBG pO2 at Pat Temp (25-40) mm/Hg VBG HCO3 (22-28) meq/L VBG O2 Sat (Lauro) (95-100) VBG Base Excess (-2.0-2.0) VBG Hemoglobin VBG Carboxyhemoglobin (0.0-6.9) % T HGB POC Potassium (3.5-5.1) Sodium (137-145) mmol/L Potassium (3.5-5.1) mmol/L Chloride (98-107) mmol/L Carbon Dioxide (22-30) mmol/L Anion Gap (5-15) MEQ/L BUN (9-20) mg/dL Creatinine (0.66-1.25) mg/dL Estimated GFR ML/MIN Glucose (74-106) mg/dL Lactic Acid 4.3 H (0.4-2.0) Calcium (8.4-10.2) mg/dL Magnesium 2.0 (1.6-2.3) mg/dL Total Bilirubin (0.2-1.3) mg/dL AST (17-59) U/L ALT (0-50) U/L Alkaline Phosphatase (38-126) U/L Troponin I 0.073 H* (0.000-0.034) ng/mL Serum Total Protein (6.3-8.2) g/dL Albumin (3.5-5.0) g/dL Amylase (30-110) U/L Lipase (23-300) U/L Urine Color (YELLOW) Urine Appearance (CLEAR) Urine pH (5-6) Ur Specific [place] (1.005-1.025) Urine Protein (Negative) Urine Ketones (NEGATIVE) Urine Blood (0-5) Timi/ul Urine Nitrite (NEGATIVE) Urine Bilirubin (NEGATIVE) Urine Urobilinogen (0-1) mg/dL Ur Leukocyte Esterase (NEGATIVE) Urine WBC (Auto) (0-5) /HPF Urine RBC (Auto) (0-2) /HPF U Hyaline Cast (Auto) (0-2) /LPF U Epithel Cells (Auto) (FEW) /HPF Urine Bacteria (Auto) (NEGATIVE) /HPF Urine Mucus (Auto) (NEGATIVE) /HPF Urine Culture Reflexed (NO) Urine Glucose (NEGATIVE) mg/dL Stool Occult Blood (Negative) Slides for Path Review 01/07/19 01/07/19 01/07/19 Range/Units 20:30 20:30 20:30 WBC 13.3 H (4.0-10.5) K/mm3 RBC 3.23 L (4.1-5.6) M/mm3 Hgb 8.3 L (12.5-18.0) gm/dl Hct 28.8 L (42-50) % MCV 89.2 (78-100) fl MCH 25.6 L (26-32) pg MCHC 28.8 L (32-36) g/dl RDW 19.5 H (11.5-14.0) % Plt Count 198 (150-450) K/mm3 MPV 12.3 H (6-9.5) fl Gran % 88.5 H (36.0-66.0) % Eos # (Auto) 0.05 (0-0.5) Absolute Lymphs (auto) 0.41 L (1.0-4.6) Absolute Monos (auto) 1.03 (0.0-1.3) Lymphocytes % 3.1 L (24.0-44.0) % Monocytes % 7.8 (0.0-12.0) % Eosinophils % 0.4 (0.00-5.0) % Basophils % 0.2 (0.0-0.4) % Absolute Granulocytes 11.74 H (1.4-6.9) Basophils # 0.02 (0-0.4) PT 13.8 H (8.83-12.87) SECONDS INR 1.22 (0.8-3.0) pO2/FiO2 Ratio % VBG pH (7.32-7.42) VBG pCO2 at Pat Temp (42-55) mm/Hg VBG pO2 at Pat Temp (25-40) mm/Hg VBG HCO3 (22-28) meq/L VBG O2 Sat (Lauro) (95-100) VBG Base Excess (-2.0-2.0) VBG Hemoglobin VBG Carboxyhemoglobin (0.0-6.9) % T HGB POC Potassium (3.5-5.1) Sodium 137 (137-145) mmol/L Potassium 3.9 (3.5-5.1) mmol/L Chloride 86 L (98-107) mmol/L Carbon Dioxide 40 H (22-30) mmol/L Anion Gap 15.4 H (5-15) MEQ/L BUN 141 H (9-20) mg/dL Creatinine 2.49 H (0.66-1.25) mg/dL Estimated GFR 27.1 ML/MIN Glucose 70 L (74-106) mg/dL Lactic Acid (0.4-2.0) Calcium 8.8 (8.4-10.2) mg/dL Magnesium (1.6-2.3) mg/dL Total Bilirubin 0.70 (0.2-1.3) mg/dL AST 30 (17-59) U/L ALT 19 (0-50) U/L Alkaline Phosphatase 107 (38-126) U/L Troponin I (0.000-0.034) ng/mL Serum Total Protein 7.2 (6.3-8.2) g/dL Albumin 3.6 (3.5-5.0) g/dL Amylase 61 (30-110) U/L Lipase 22 L (23-300) U/L Urine Color (YELLOW) Urine Appearance (CLEAR) Urine pH (5-6) Ur Specific [place] (1.005-1.025) Urine Protein (Negative) Urine Ketones (NEGATIVE) Urine Blood (0-5) Timi/ul Urine Nitrite (NEGATIVE) Urine Bilirubin (NEGATIVE) Urine Urobilinogen (0-1) mg/dL Ur Leukocyte Esterase (NEGATIVE) Urine WBC (Auto) (0-5) /HPF Urine RBC (Auto) (0-2) /HPF U Hyaline Cast (Auto) (0-2) /LPF U Epithel Cells (Auto) (FEW) /HPF Urine Bacteria (Auto) (NEGATIVE) /HPF Urine Mucus (Auto) (NEGATIVE) /HPF Urine Culture Reflexed (NO) Urine Glucose (NEGATIVE) mg/dL Stool Occult Blood (Negative) Slides for Path Review YES - Progress Progress: improved Progress Note: 01/07/19 20:07 Patient had an unresponsive episode for about 30 seconds times with his eyes open 01/07/2019 20:08 Patient had another brief unresponsive episode for about 10 seconds with his eyes open 01/07/19 22:49 Patient is alert. Patient has no focal deficits, speaking and answering questions appropriately. Paced rhythm on the threat monitoring analyst. Discussed with .: Wilmer (@22:42, Discussed the patient and results with Dr Chau, patient's physician and hospitalist. Dr Chau accepted the patient for observation and to start Cefepime for broad-spectrum coverage ) Will see patient in: hospital (observation) (to [facility] telemetry) Counseled pt/family regarding: lab results, diagnosis, need for follow-up, rad results - Departure Departure Disposition: Observation (to [facility] telemetry) Clinical Impression: Elevated troponin, Acute on chronic renal insufficiency Syncope Qualifiers: Syncope type: unspecified Qualified Code(s): R55 - Syncope and collapse Sepsis Qualifiers: Sepsis type: sepsis due to unspecified organism Sepsis acute organ dysfunction status: with acute organ dysfunction Severe sepsis acute organ dysfunction type : acute renal failure Acute renal failure type: unspecified Severe sepsis shock status: without septic shock Qualified Code(s): A41.9 - Sepsis, unspecified organism; R65.20 - Severe sepsis without septic shock; N17.9 - Acute kidney failure, unspecified Anemia in chronic kidney disease Qualifiers: Chronic kidney disease stage: stage 4 (severe) Qualified Code(s): N18.4 - Chronic kidney disease, stage 4 (severe); D63.1 - Anemia in chronic kidney disease Condition: Fair Critical Care Time: No Referrals: ARMANDO SHARMA [Primary Care Provider] -
[2019-01-07 20:44] LABS: Absolute Neutrophil Ct (ANC) 11.74 (1.4-6.9); BASOPHIL % 0.2 % (0.0-0.4); Basophil (Absolute #) 0.02 (0-0.4); Eosinophil % 0.4 % (0.00-5.0); Eosinophil (Absolute #) 0.05 (0-0.5); Hematocrit 28.8 % (42-50); Hemoglobin 8.3 gm/dl (12.5-18.0); Lymphocyte (Absolute #) 0.41 (1.0-4.6); Lymphocytes % 3.1 % (24.0-44.0); Mean Cell Volume 89.2 fl (78-100); Mean Corpuscular Hgb Concent. 28.8 g/dl (32-36); Mean Platelet Volume 12.3 fl (6-9.5); Monocyte (Absolute #) 1.03 (0.0-1.3); Monocytes % 7.8 % (0.0-12.0); Neutrophil % 88.5 % (36.0-66.0); Platelet Count 198 K/mm3 (150-450); Red Blood Count 3.23 M/mm3 (4.1-5.6); Red Cell Distribution Width 19.5 % (11.5-14.0); White Blood Count 13.3 K/mm3 (4.0-10.5)
[2019-01-07 20:45] LABS: VBG BASE EXCESS 15.3 (-2.0-2.0); VBG CARBOXYHEMOGLOBIN 6.8 % T HGB (0.0-6.9); VBG HCO3- 42.1 meq/L (22-28); VBG HEMOGLOBIN 8.4; VBG POTASSIUM 3.7 (3.5-5.1); VBG pH 7.4 (7.32-7.42)
[2019-01-07 20:47] LABS: Lactic Acid 4.3 (0.4-2.0)
[2019-01-07 20:53] LABS: Mean Corpuscular Hemoglobin 25.6 pg (26-32)
[2019-01-07 20:55] LABS: INR 1.22 (0.8-3.0); PROTIME 13.8 SECONDS (8.83-12.87)
[2019-01-07 20:59] LABS: ALBUMIN 3.6 g/dL (3.5-5.0); ANION GAP 15.4 MEQ/L (5-15); BILIRUBIN,TOTAL 0.7 mg/dL (0.2-1.3); Calcium 8.8 mg/dL (8.4-10.2); Creatinine 1 2.49 mg/dL (0.66-1.25); Potassium 3.9 mmol/L (3.5-5.1); Total Protein 7.2 g/dL (6.3-8.2)
[2019-01-07 21:56] LABS: Appearance SLIGHTLY CLOUDY (CLEAR); Bacteria RARE /HPF (NEGATIVE); Bilirubin NEGATIVE (NEGATIVE); Blood LARGE Ery/ul (0-5); Glucose NEGATIVE (NEGATIVE); Ketones NEGATIVE (NEGATIVE); Leukocyte Esterase NEGATIVE (NEGATIVE); Mucus SLIGHT /HPF (NEGATIVE); Nitrite NEGATIVE (NEGATIVE); Protein,Urine Dip NEGATIVE (Negative); Specific Gravity 1.011 (1.005-1.025); Urobilinogen NEGATIVE mg/dL (0-1); WBC 0-2 /HPF (0-5)
[2019-01-07 22:03] LABS: RBC >101 /HPF (0-2)
[2019-01-07 22:41] LABS: Slide Review 1 YES
[2019-01-07] MEDS ORDERED: MAXIPIME 1 GM** 1 G in Sodium Chloride 0.9% 100 ML IVPB 100 ML IV STA (22:47)
[2019-01-07] MEDS ORDERED: MAXIPIME 1 GM ONE (23:04)
[2019-01-07] MEDS ORDERED: Sodium Chloride 0.9% 100 ML IVPB 100 ML IV ONE (23:06)
[2019-01-07] MEDS ORDERED: TYLENOL 325 MG PO PRN (23:26)
[2019-01-07] MEDS ORDERED: NovoLIN R SQ PRN (23:26)
[2019-01-07] MEDS: DUONEB 0.5-3 MG/3 ml Neb IH SCH (23:46)
[2019-01-07] MEDS: Sodium Chloride 0.9% 1000 ML 1,000 ML IV SCH (23:48)
[2019-01-08] MEDS ORDERED: DUONEB 0.5-3 MG/3 ml Neb IH PRN (05:05)
[2019-01-08] MEDS: DUONEB 0.5-3 MG/3 ml Neb IH SCH ×2 (05:40→12:37)
[2019-01-08 05:54] LABS: Absolute Neutrophil Ct (ANC) 10.74 (1.4-6.9); BASOPHIL % 0.1 % (0.0-0.4); Basophil (Absolute #) 0.01 (0-0.4); Eosinophil % 0.3 % (0.00-5.0); Eosinophil (Absolute #) 0.04 (0-0.5); Hematocrit 28.1 % (42-50); Hemoglobin 8.1 gm/dl (12.5-18.0); Lymphocyte (Absolute #) 0.67 (1.0-4.6); Lymphocytes % 5.4 % (24.0-44.0); Mean Cell Volume 88.1 fl (78-100); Mean Corpuscular Hgb Concent. 28.8 g/dl (32-36); Mean Platelet Volume 12.7 fl (6-9.5); Monocyte (Absolute #) 0.98 (0.0-1.3); Monocytes % 7.9 % (0.0-12.0); Neutrophil % 86.3 % (36.0-66.0); Platelet Count 193 K/mm3 (150-450); Red Blood Count 3.19 M/mm3 (4.1-5.6); Red Cell Distribution Width 19.6 % (11.5-14.0); White Blood Count 12.4 K/mm3 (4.0-10.5)
[2019-01-08 05:55] LABS: Mean Corpuscular Hemoglobin 25.3 pg (26-32)
[2019-01-08] MEDS: Sodium Chloride 0.9% 1000 ML 1,000 ML IV SCH (06:08)
[2019-01-08 06:10] LABS: Potassium 3.5 mmol/L (3.5-5.1)
[2019-01-08 06:50] VITALS: PULSE 83
[2019-01-08] MEDS ORDERED: Advair Hfa 115/21 Common canister IH SCH (07:00)
[2019-01-08 07:08] LABS: Slide Review 1 YES
[2019-01-08 07:09] LABS: Calcium 8.9 mg/dL (8.4-10.2); Creatinine 1 2.32 mg/dL (0.66-1.25)
[2019-01-08 07:44] LABS: ANION GAP 14.5 MEQ/L (5-15)
--- NOTE | 2019-01-08 08:47 | XRAY ---
Indication: Syncope. Comparison: March 27, 2018. Portable chest again demonstrates cardiomegaly, central vascular congestion, and worsening bibasilar effusions/atelectasis again favoring cardiac decompensation. Superimposed pneumonia not completely excluded.
--- NOTE | 2019-01-08 08:49 | XRAY ---
Indication: Syncope. Sepsis. Comparison: One day earlier. Portable chest unchanged again demonstrating cardiomegaly, vascular congestion, and bibasilar effusions/atelectasis left greater than right favoring cardiac decompensation with superimposed pneumonia not completely excluded.
--- NOTE | 2019-01-08 08:50 | XRAY ---
Indication: Syncope. Renal failure. Multiple contiguous axial images obtained through the head without contrast. Comparison: April 05, 2016. Several images slightly degraded by motion artifact. Stable age-appropriate global atrophy, minimal periventricular degenerative micro-ischemia bilaterally, and old right occipital lobe infarct. New finding remote appearing lacunar infarcts left caudate head and right periventricular white matter. No acute intracranial hemorrhage, abnormal extra-axial fluid collection, or mass effect. Fourth ventricle is midline without hydrocephalus. Bony calvarium intact. Visualized paranasal sinuses and mastoid air cells are clear. Impression: 1. Mild motion artifact. 2. New finding remote lacunar infarcts as detailed. 3. Stable atrophy, degenerative micro-ischemia, and old right occipital lobe infarct. 4. No acute intracranial abnormalities. Comment: Preliminary interpretation was made by [facility]. No critical discrepancy. CTDI 61.68
--- NOTE | 2019-01-08 09:17 | PCM.SSS ---
History of Present Illness - Chief Complaint Chief Complaint: Syncope last night History of Present Illness: is a 73 year old male.Patient had a brief syncopal episode at the nursing facility he lives while going to the bathroom. Patient's physician wanted him evaluated in the emergency department. Witnessed: bystander Prior Episodes: single episode today Timing/Duration: today, resolved prior to arrival, sudden Precipitating Factors: other (going to the bathroom) Context: sitting, other (bearing down) Charcter of event(s): became unresponsive - Review of Systems Constitutional: Weakness, No Fever, No Chills Eyes: No Symptoms Ears, Nose, & Throat: No Symptoms Respiratory: Orthopnea, No Cough, No Short Of Breath Cardiac: Edema, Palpitations, Syncope, No Chest Pain Abdominal/Gastrointestinal: No Abdominal Pain, No Nausea, No Vomiting, No Diarrhea Genitourinary Symptoms: Hematuria, No Dysuria Musculoskeletal: No Back Pain, No Neck Pain Skin: No Rash Neurological: No Dizziness, No Focal Weakness, No Sensory Changes Psychological: No Symptoms Endocrine: No Symptoms Hematologic/Lymphatic: No Symptoms Immunological/Allergic: No Symptoms Medications & Allergies Home Medications: Home Medication List Isosorbide Mononitrate [Imdur] 30 mg PO DAILY 03/13/13 [History Confirmed ] Clopidogrel Bisulfate 75 mg [PLAVIX 75 MG Tablet] 75 mg PO DAILY 10/29/14 [History Confirmed 01/07/19] Atorvastatin Calcium 40 mg PO HS 02/16/15 [History Confirmed 01/07/19] Magnesium Oxide [Magnesium] 400 mg PO BID 02/25/16 [History Confirmed 01/07/19] Tamsulosin HCl 0.4 mg [Flomax 0.4 MG] 0.4 mg PO DAILY 07/15/16 [History Confirmed 01/07/19] Metformin HCl 500 mg [Glucophage 500 MG] 500 mg PO BIDWM 11/11/16 [ History Confirmed 01/07/19] Nitroglycerin 0.4 mg (Ed) [Nitrostat 0.4 MG (ED)] 0.4 mg SL UD PRN [History Confirmed 01/07/19] Allopurinol 100 mg [Zyloprim 100 mg] 1 tab PO BID 04/17/17 [History Confirmed 01/07/19] Carvedilol 12.5 mg PO BID 04/17/17 [History Confirmed 01/07/19] Docusate Sodium 100 mg PO DAILY PRN PRN 04/17/17 [History Confirmed 01/07/19] Loperamide HCl 2 mg [Imodium 2 mg] 1 tab PO Q4HPRN PRN 04/17/17 [History Confirmed 01/07/19] Acetaminophen [Tylenol] 650 mg PO Q4HPRN PRN 01/07/19 [History Confirmed ] Cyclobenzaprine HCl 10 mg PO Q8H PRN PRN 01/07/19 [History Confirmed 01/07/19] Ergocalciferol (Vitamin D2) [Vitamin D2] 50,000 unit PO DAILY 01/07/19 [History Confirmed 01/07/19] Ergocalciferol (Vitamin D2) [Vitamin D2] 50,000 units PO DAILY 01/07/19 [ History Confirmed 01/07/19] Escitalopram Oxalate [Lexapro] 5 mg PO DAILY 01/07/19 [History Confirmed ] Fluticasone/Vilanterol [Breo Ellipta 100-25 Mcg INH] 1 puff PO DAILY 01/07/19 [ History Confirmed 01/07/19] Gabapentin 100 mg PO BID 01/07/19 [History Confirmed 01/07/19] Hum Insulin NPH/Reg Insulin Hm [Novolin 70-30 100 Unit/ml Vial] 100 units SQ CLARIFY 01/07/19 [History Confirmed 01/07/19] HydrALAzine HCL 25 MG TAB [Apresoline 25 MG TABLET] 25 mg PO BID 01/07/19 [History Confirmed 01/07/19] Insulin Aspart [Novolog] 100 units SQ TID PRN PRN 01/07/19 [History Confirmed ] Ipratropium/Albuterol Sulfate [Iprat-Albut 0.5-3(2.5) mg/3 ml] 3 ml IH Q4HPRN PRN 01/07/19 [History Confirmed 01/07/19] Ipratropium/Albuterol Sulfate [Iprat-Albut 0.5-3(2.5) mg/3 ml] 3 ml IH Q6H 01/07 [History Confirmed 01/07/19] Phenol Liquid [Phenol Ez] 1.4 mg BC Q2H/PRN PRN 01/07/19 [History Confirmed 01/15] Torsemide 20 mg [Demadex 20 mg] 20 mg PO BID 01/07/19 [History Confirmed 01/07/19] metOLazone [Metolazone] 5 mg PO CLARIFY 01/07/19 [History Confirmed 01/07/19] Allergies/Adverse Reactions: Allergies Allergy/AdvReac Type Severity Reaction Status Date / Time morphine AdvReac Severe Verified 03/26/18 23:50 - Past Medical History Past Medical History: Yes Neurological History: Peripheral Neuropathy ENT History: No Pertinent History Cardiac History: Angina, Congestive Heart Failure, Coronary Artery Disease, High Cholesterol, Hypertension, Myocardial Infarction ([place]) Respiratory History: Bronchitis, COPD, Emphysema, Pneumonia, Other Endocrine Medical History: Diabetes Type II Musculoskelatal History: Arthritis GI Medical History: No Pertinent History History: Renal Disease Pyscho-Social History: Depression Male Reproductive Disorders: No Pertinent History Comment: Hx vision problems. Hx chronic kidney disease. DM with uncontrolled sugars - Past Surgical History Past Surgical History: Yes Neuro Surgical History: No Pertinent History Cardiac History: CABG, Cardiac Catheterization, Cardiac Stent, Pacemaker Respiratory Surgery: No Pertinent History GI Surgical History: Cholecystectomy Genitourinary Surgical Hx: No Pertinent History Musculskeletal Surgical Hx: Other Male Surgical History: No Pertinent History Other Surgical History: BILATERAL CAROTID. 5 cardiac stents, hand surg - Social History Smoking Status: Former smoker How long have you smoked: 40 years Exposure to second hand smoke: No Alcohol: None Drug Use: none - Physical Exam Vital Signs: Vital Signs - 24 hr Temp Pulse Resp BP BP Pulse Ox 01/08/19 08:00 98.7 F 83 24 91/42 92 L 01/08/19 05:40 83 22 93 L 01/08/19 04:00 96.7 F 82 16 98/48 94 L 01/08/19 00:23 97.4 F 80 24 99/58 93 L 01/08/19 00:15 97.4 F 80 24 99/58 99/58 93 L 01/07/19 23:55 82 24 94 L 01/07/19 22:51 97 01/07/19 21:37 81 18 124/63 94 L 01/07/19 20:12 97.6 F 96 H 24 70/51 97 Oxygen-Last 24 hours O2 Percentage 6 Liters = 44% O2 Percentage 4 Liters = 36% O2 Percentage 4 Liters = 36% O2 Percentage 4 Liters = 36% O2 Percentage 4 Liters = 36% General Appearance: no apparent distress, alert Neurologic Exam: alert, oriented x 3, cooperative, normal mood/affect, nml cerebellar function, nml station & gait, sensation nml, No motor deficits Eye Exam: PERRL/EOMI, eyes nml inspection Ears, Nose, Throat Exam: normal ENT inspection, TMs normal, pharynx normal, moist mucous membranes Neck Exam: normal inspection, non-tender, supple, full range of motion Respiratory Exam: crackles/rales, rhonchi, No respiratory distress Cardiovascular Exam: regular rate/rhythm, normal heart sounds, normal peripheral pulses Gastrointestinal/Abdomen Exam: soft, normal bowel sounds, No tenderness, No mass Back Exam: normal inspection, normal range of motion, No CVA tenderness, No vertebral tenderness Extremity Exam: normal inspection, normal range of motion, pelvis stable Skin Exam: normal color, warm, dry, No rash Lymphatic Exam: No adenopathy Results - Labs Lab/Micro Results: Accuchecks Date 01/08/19 Time 06:45 Accucheck Value: 62 Lab Results-Last 24 Hours 01/07/19 01/07/19 01/07/19 Range/Units 20:30 20:30 20:30 WBC 13.3 H (4.0-10.5) K/mm3 RBC 3.23 L (4.1-5.6) M/mm3 Hgb 8.3 L (12.5-18.0) gm/dl Hct 28.8 L (42-50) % MCV 89.2 (78-100) fl MCH 25.6 L (26-32) pg MCHC 28.8 L (32-36) g/dl RDW 19.5 H (11.5-14.0) % Plt Count 198 (150-450) K/mm3 MPV 12.3 H (6-9.5) fl Gran % 88.5 H (36.0-66.0) % Eos # (Auto) 0.05 (0-0.5) Absolute Lymphs (auto) 0.41 L (1.0-4.6) Absolute Monos (auto) 1.03 (0.0-1.3) Lymphocytes % 3.1 L (24.0-44.0) % Monocytes % 7.8 (0.0-12.0) % Eosinophils % 0.4 (0.00-5.0) % Basophils % 0.2 (0.0-0.4) % Absolute Granulocytes 11.74 H (1.4-6.9) Basophils # 0.02 (0-0.4) PT 13.8 H (8.83-12.87) SECONDS INR 1.22 (0.8-3.0) pO2/FiO2 Ratio % VBG pH (7.32-7.42) VBG pCO2 at Pat Temp (42-55) mm/Hg VBG pO2 at Pat Temp (25-40) mm/Hg VBG HCO3 (22-28) meq/L VBG O2 Sat (Lauro) (95-100) VBG Base Excess (-2.0-2.0) VBG Hemoglobin VBG Carboxyhemoglobin (0.0-6.9) % T HGB POC Potassium (3.5-5.1) Sodium 137 (137-145) mmol/L Potassium 3.9 (3.5-5.1) mmol/L Chloride 86 L (98-107) mmol/L Carbon Dioxide 40 H (22-30) mmol/L Anion Gap 15.4 H (5-15) MEQ/L BUN 141 H (9-20) mg/dL Creatinine 2.49 H (0.66-1.25) mg/dL Estimated GFR 27.1 ML/MIN Glucose 70 L (74-106) mg/dL Lactic Acid (0.4-2.0) Calcium 8.8 (8.4-10.2) mg/dL Magnesium (1.6-2.3) mg/dL Total Bilirubin 0.70 (0.2-1.3) mg/dL AST 30 (17-59) U/L ALT 19 (0-50) U/L Alkaline Phosphatase 107 (38-126) U/L Troponin I (0.000-0.034) ng/mL Serum Total Protein 7.2 (6.3-8.2) g/dL Albumin 3.6 (3.5-5.0) g/dL Amylase 61 (30-110) U/L Lipase 22 L (23-300) U/L Urine Color (YELLOW) Urine Appearance (CLEAR) Urine pH (5-6) Ur Specific [place] (1.005-1.025) Urine Protein (Negative) Urine Ketones (NEGATIVE) Urine Blood (0-5) Timi/ul Urine Nitrite (NEGATIVE) Urine Bilirubin (NEGATIVE) Urine Urobilinogen (0-1) mg/dL Ur Leukocyte Esterase (NEGATIVE) Urine WBC (Auto) (0-5) /HPF Urine RBC (Auto) (0-2) /HPF U Hyaline Cast (Auto) (0-2) /LPF U Epithel Cells (Auto) (FEW) /HPF Urine Bacteria (Auto) (NEGATIVE) /HPF Urine Mucus (Auto) (NEGATIVE) /HPF Urine Culture Reflexed (NO) Urine Glucose (NEGATIVE) mg/dL Stool Occult Blood (Negative) Slides for Path Review YES 01/07/19 01/07/19 01/07/19 Range/Units 20:30 20:30 20:40 WBC (4.0-10.5) K/mm3 RBC (4.1-5.6) M/mm3 Hgb (12.5-18.0) gm/dl Hct (42-50) % MCV (78-100) fl MCH (26-32) pg MCHC (32-36) g/dl RDW (11.5-14.0) % Plt Count (150-450) K/mm3 MPV (6-9.5) fl Gran % (36.0-66.0) % Eos # (Auto) (0-0.5) Absolute Lymphs (auto) (1.0-4.6) Absolute Monos (auto) (0.0-1.3) Lymphocytes % (24.0-44.0) % Monocytes % (0.0-12.0) % Eosinophils % (0.00-5.0) % Basophils % (0.0-0.4) % Absolute Granulocytes (1.4-6.9) Basophils # (0-0.4) PT (8.83-12.87) SECONDS INR (0.8-3.0) pO2/FiO2 Ratio % VBG pH (7.32-7.42) VBG pCO2 at Pat Temp (42-55) mm/Hg VBG pO2 at Pat Temp (25-40) mm/Hg VBG HCO3 (22-28) meq/L VBG O2 Sat (Lauro) (95-100) VBG Base Excess (-2.0-2.0) VBG Hemoglobin VBG Carboxyhemoglobin (0.0-6.9) % T HGB POC Potassium (3.5-5.1) Sodium (137-145) mmol/L Potassium (3.5-5.1) mmol/L Chloride (98-107) mmol/L Carbon Dioxide (22-30) mmol/L Anion Gap (5-15) MEQ/L BUN (9-20) mg/dL Creatinine (0.66-1.25) mg/dL Estimated GFR ML/MIN Glucose (74-106) mg/dL Lactic Acid 4.3 H (0.4-2.0) Calcium (8.4-10.2) mg/dL Magnesium 2.0 (1.6-2.3) mg/dL Total Bilirubin (0.2-1.3) mg/dL AST (17-59) U/L ALT (0-50) U/L Alkaline Phosphatase (38-126) U/L Troponin I 0.073 H* (0.000-0.034) ng/mL Serum Total Protein (6.3-8.2) g/dL Albumin (3.5-5.0) g/dL Amylase (30-110) U/L Lipase (23-300) U/L Urine Color (YELLOW) Urine Appearance (CLEAR) Urine pH (5-6) Ur Specific [place] (1.005-1.025) Urine Protein (Negative) Urine Ketones (NEGATIVE) Urine Blood (0-5) Timi/ul Urine Nitrite (NEGATIVE) Urine Bilirubin (NEGATIVE) Urine Urobilinogen (0-1) mg/dL Ur Leukocyte Esterase (NEGATIVE) Urine WBC (Auto) (0-5) /HPF Urine RBC (Auto) (0-2) /HPF U Hyaline Cast (Auto) (0-2) /LPF U Epithel Cells (Auto) (FEW) /HPF Urine Bacteria (Auto) (NEGATIVE) /HPF Urine Mucus (Auto) (NEGATIVE) /HPF Urine Culture Reflexed (NO) Urine Glucose (NEGATIVE) mg/dL Stool Occult Blood (Negative) Slides for Path Review 01/07/19 01/07/19 01/07/19 Range/Units 20:40 21:10 21:40 WBC (4.0-10.5) K/mm3 RBC (4.1-5.6) M/mm3 Hgb (12.5-18.0) gm/dl Hct (42-50) % MCV (78-100) fl MCH (26-32) pg MCHC (32-36) g/dl RDW (11.5-14.0) % Plt Count (150-450) K/mm3 MPV (6-9.5) fl Gran % (36.0-66.0) % Eos # (Auto) (0-0.5) Absolute Lymphs (auto) (1.0-4.6) Absolute Monos (auto) (0.0-1.3) Lymphocytes % (24.0-44.0) % Monocytes % (0.0-12.0) % Eosinophils % (0.00-5.0) % Basophils % (0.0-0.4) % Absolute Granulocytes (1.4-6.9) Basophils # (0-0.4) PT (8.83-12.87) SECONDS INR (0.8-3.0) pO2/FiO2 Ratio 36.0 % VBG pH 7.40 (7.32-7.42) VBG pCO2 at Pat Temp 68 H* (42-55) mm/Hg VBG pO2 at Pat Temp 41 H (25-40) mm/Hg VBG HCO3 42.1 H* (22-28) meq/L VBG O2 Sat (Lauro) 84.0 L (95-100) VBG Base Excess 15.3 H (-2.0-2.0) VBG Hemoglobin 8.4 VBG Carboxyhemoglobin 6.8 (0.0-6.9) % T HGB POC Potassium 3.7 (3.5-5.1) Sodium (137-145) mmol/L Potassium (3.5-5.1) mmol/L Chloride (98-107) mmol/L Carbon Dioxide (22-30) mmol/L Anion Gap (5-15) MEQ/L BUN (9-20) mg/dL Creatinine (0.66-1.25) mg/dL Estimated GFR ML/MIN Glucose (74-106) mg/dL Lactic Acid (0.4-2.0) Calcium (8.4-10.2) mg/dL Magnesium (1.6-2.3) mg/dL Total Bilirubin (0.2-1.3) mg/dL AST (17-59) U/L ALT (0-50) U/L Alkaline Phosphatase (38-126) U/L Troponin I (0.000-0.034) ng/mL Serum Total Protein (6.3-8.2) g/dL Albumin (3.5-5.0) g/dL Amylase (30-110) U/L Lipase (23-300) U/L Urine Color YELLOW (YELLOW) Urine Appearance SLIGHTLY CLOUDY (CLEAR) Urine pH 5.0 (5-6) Ur Specific [place] 1.011 (1.005-1.025) Urine Protein NEGATIVE (Negative) Urine Ketones NEGATIVE (NEGATIVE) Urine Blood LARGE (0-5) Timi/ul Urine Nitrite NEGATIVE (NEGATIVE) Urine Bilirubin NEGATIVE (NEGATIVE) Urine Urobilinogen NEGATIVE (0-1) mg/dL Ur Leukocyte Esterase NEGATIVE (NEGATIVE) Urine WBC (Auto) 0-2 (0-5) /HPF Urine RBC (Auto) >101 (0-2) /HPF U Hyaline Cast (Auto) 11-25 (0-2) /LPF U Epithel Cells (Auto) NONE (FEW) /HPF Urine Bacteria (Auto) RARE (NEGATIVE) /HPF Urine Mucus (Auto) SLIGHT (NEGATIVE) /HPF Urine Culture Reflexed ORDERED SEPARATELY (NO) Urine Glucose NEGATIVE (NEGATIVE) mg/dL Stool Occult Blood NEGATIVE (Negative) Slides for Path Review 01/07/19 01/07/19 01/08/19 Range/Units 22:50 22:55 02:40 WBC (4.0-10.5) K/mm3 RBC (4.1-5.6) M/mm3 Hgb (12.5-18.0) gm/dl Hct (42-50) % MCV (78-100) fl MCH (26-32) pg MCHC (32-36) g/dl RDW (11.5-14.0) % Plt Count (150-450) K/mm3 MPV (6-9.5) fl Gran % (36.0-66.0) % Eos # (Auto) (0-0.5) Absolute Lymphs (auto) (1.0-4.6) Absolute Monos (auto) (0.0-1.3) Lymphocytes % (24.0-44.0) % Monocytes % (0.0-12.0) % Eosinophils % (0.00-5.0) % Basophils % (0.0-0.4) % Absolute Granulocytes (1.4-6.9) Basophils # (0-0.4) PT (8.83-12.87) SECONDS INR (0.8-3.0) pO2/FiO2 Ratio % VBG pH (7.32-7.42) VBG pCO2 at Pat Temp (42-55) mm/Hg VBG pO2 at Pat Temp (25-40) mm/Hg VBG HCO3 (22-28) meq/L VBG O2 Sat (Lauro) (95-100) VBG Base Excess (-2.0-2.0) VBG Hemoglobin VBG Carboxyhemoglobin (0.0-6.9) % T HGB POC Potassium (3.5-5.1) Sodium (137-145) mmol/L Potassium (3.5-5.1) mmol/L Chloride (98-107) mmol/L Carbon Dioxide (22-30) mmol/L Anion Gap (5-15) MEQ/L BUN (9-20) mg/dL Creatinine (0.66-1.25) mg/dL Estimated GFR ML/MIN Glucose (74-106) mg/dL Lactic Acid 1.7 (0.4-2.0) Calcium (8.4-10.2) mg/dL Magnesium (1.6-2.3) mg/dL Total Bilirubin (0.2-1.3) mg/dL AST (17-59) U/L ALT (0-50) U/L Alkaline Phosphatase (38-126) U/L Troponin I 0.072 H* 0.115 H* (0.000-0.034) ng/mL Serum Total Protein (6.3-8.2) g/dL Albumin (3.5-5.0) g/dL Amylase (30-110) U/L Lipase (23-300) U/L Urine Color (YELLOW) Urine Appearance (CLEAR) Urine pH (5-6) Ur Specific [place] (1.005-1.025) Urine Protein (Negative) Urine Ketones (NEGATIVE) Urine Blood (0-5) Timi/ul Urine Nitrite (NEGATIVE) Urine Bilirubin (NEGATIVE) Urine Urobilinogen (0-1) mg/dL Ur Leukocyte Esterase (NEGATIVE) Urine WBC (Auto) (0-5) /HPF Urine RBC (Auto) (0-2) /HPF U Hyaline Cast (Auto) (0-2) /LPF U Epithel Cells (Auto) (FEW) /HPF Urine Bacteria (Auto) (NEGATIVE) /HPF Urine Mucus (Auto) (NEGATIVE) /HPF Urine Culture Reflexed (NO) Urine Glucose (NEGATIVE) mg/dL Stool Occult Blood (Negative) Slides for Path Review 01/08/19 01/08/19 01/08/19 Range/Units 05:15 05:15 05:15 WBC 12.4 H (4.0-10.5) K/mm3 RBC 3.19 L (4.1-5.6) M/mm3 Hgb 8.1 L (12.5-18.0) gm/dl Hct 28.1 L (42-50) % MCV 88.1 (78-100) fl MCH 25.3 L (26-32) pg MCHC 28.8 L (32-36) g/dl RDW 19.6 H (11.5-14.0) % Plt Count 193 (150-450) K/mm3 MPV 12.7 H (6-9.5) fl Gran % 86.3 H (36.0-66.0) % Eos # (Auto) 0.04 (0-0.5) Absolute Lymphs (auto) 0.67 L (1.0-4.6) Absolute Monos (auto) 0.98 (0.0-1.3) Lymphocytes % 5.4 L (24.0-44.0) % Monocytes % 7.9 (0.0-12.0) % Eosinophils % 0.3 (0.00-5.0) % Basophils % 0.1 (0.0-0.4) % Absolute Granulocytes 10.74 H (1.4-6.9) Basophils # 0.01 (0-0.4) PT (8.83-12.87) SECONDS INR (0.8-3.0) pO2/FiO2 Ratio % VBG pH (7.32-7.42) VBG pCO2 at Pat Temp (42-55) mm/Hg VBG pO2 at Pat Temp (25-40) mm/Hg VBG HCO3 (22-28) meq/L VBG O2 Sat (Lauro) (95-100) VBG Base Excess (-2.0-2.0) VBG Hemoglobin VBG Carboxyhemoglobin (0.0-6.9) % T HGB POC Potassium (3.5-5.1) Sodium 139 (137-145) mmol/L Potassium 3.5 (3.5-5.1) mmol/L Chloride 89 L (98-107) mmol/L Carbon Dioxide 39 H (22-30) mmol/L Anion Gap 14.5 (5-15) MEQ/L BUN 143 H (9-20) mg/dL Creatinine 2.32 H (0.66-1.25) mg/dL Estimated GFR 29.4 ML/MIN Glucose 49 L* (74-106) mg/dL Lactic Acid (0.4-2.0) Calcium 8.9 (8.4-10.2) mg/dL Magnesium (1.6-2.3) mg/dL Total Bilirubin (0.2-1.3) mg/dL AST (17-59) U/L ALT (0-50) U/L Alkaline Phosphatase (38-126) U/L Troponin I 0.252 H* (0.000-0.034) ng/mL Serum Total Protein (6.3-8.2) g/dL Albumin (3.5-5.0) g/dL Amylase (30-110) U/L Lipase (23-300) U/L Urine Color (YELLOW) Urine Appearance (CLEAR) Urine pH (5-6) Ur Specific [place] (1.005-1.025) Urine Protein (Negative) Urine Ketones (NEGATIVE) Urine Blood (0-5) Timi/ul Urine Nitrite (NEGATIVE) Urine Bilirubin (NEGATIVE) Urine Urobilinogen (0-1) mg/dL Ur Leukocyte Esterase (NEGATIVE) Urine WBC (Auto) (0-5) /HPF Urine RBC (Auto) (0-2) /HPF U Hyaline Cast (Auto) (0-2) /LPF U Epithel Cells (Auto) (FEW) /HPF Urine Bacteria (Auto) (NEGATIVE) /HPF Urine Mucus (Auto) (NEGATIVE) /HPF Urine Culture Reflexed (NO) Urine Glucose (NEGATIVE) mg/dL Stool Occult Blood (Negative) Slides for Path Review YES 01/08/19 01/08/19 Range/Units 05:25 08:17 WBC (4.0-10.5) K/mm3 RBC (4.1-5.6) M/mm3 Hgb (12.5-18.0) gm/dl Hct (42-50) % MCV (78-100) fl MCH (26-32) pg MCHC (32-36) g/dl RDW (11.5-14.0) % Plt Count (150-450) K/mm3 MPV (6-9.5) fl Gran % (36.0-66.0) % Eos # (Auto) (0-0.5) Absolute Lymphs (auto) (1.0-4.6) Absolute Monos (auto) (0.0-1.3) Lymphocytes % (24.0-44.0) % Monocytes % (0.0-12.0) % Eosinophils % (0.00-5.0) % Basophils % (0.0-0.4) % Absolute Granulocytes (1.4-6.9) Basophils # (0-0.4) PT (8.83-12.87) SECONDS INR (0.8-3.0) pO2/FiO2 Ratio % VBG pH (7.32-7.42) VBG pCO2 at Pat Temp (42-55) mm/Hg VBG pO2 at Pat Temp (25-40) mm/Hg VBG HCO3 (22-28) meq/L VBG O2 Sat (Lauro) (95-100) VBG Base Excess (-2.0-2.0) VBG Hemoglobin VBG Carboxyhemoglobin (0.0-6.9) % T HGB POC Potassium (3.5-5.1) Sodium (137-145) mmol/L Potassium (3.5-5.1) mmol/L Chloride (98-107) mmol/L Carbon Dioxide (22-30) mmol/L Anion Gap (5-15) MEQ/L BUN (9-20) mg/dL Creatinine (0.66-1.25) mg/dL Estimated GFR ML/MIN Glucose (74-106) mg/dL Lactic Acid 0.9 (0.4-2.0) Calcium (8.4-10.2) mg/dL Magnesium (1.6-2.3) mg/dL Total Bilirubin (0.2-1.3) mg/dL AST (17-59) U/L ALT (0-50) U/L Alkaline Phosphatase (38-126) U/L Troponin I 0.392 H* (0.000-0.034) ng/mL Serum Total Protein (6.3-8.2) g/dL Albumin (3.5-5.0) g/dL Amylase (30-110) U/L Lipase (23-300) U/L Urine Color (YELLOW) Urine Appearance (CLEAR) Urine pH (5-6) Ur Specific [place] (1.005-1.025) Urine Protein (Negative) Urine Ketones (NEGATIVE) Urine Blood (0-5) Tmii/ul Urine Nitrite (NEGATIVE) Urine Bilirubin (NEGATIVE) Urine Urobilinogen (0-1) mg/dL Ur Leukocyte Esterase (NEGATIVE) Urine WBC (Auto) (0-5) /HPF Urine RBC (Auto) (0-2) /HPF U Hyaline Cast (Auto) (0-2) /LPF U Epithel Cells (Auto) (FEW) /HPF Urine Bacteria (Auto) (NEGATIVE) /HPF Urine Mucus (Auto) (NEGATIVE) /HPF Urine Culture Reflexed (NO) Urine Glucose (NEGATIVE) mg/dL Stool Occult Blood (Negative) Slides for Path Review Accuchecks Date 01/08/19 Time 06:45 Accucheck Value: 62 - Radiology Impressions Radiology Exams & Impressions: Radiology Procedures Category Date Time Status CHEST 1 VIEW (PORTABLE) Routine Exams 01/08/19 08:00 Completed CHEST 1 VIEW (PORTABLE) Stat Exams 01/07/19 20:12 Completed HEAD WITHOUT CONTRAST [CT] Stat Exams 01/07/19 20:14 Completed - Other Procedures and Tests Respiratory Therapy 01/07/19 23:26 EKG PRN Oxygen Nasal Cannula 4 lpm 01/07/19 23:54 Peak Expiratory Flow Rate ONCE Respiratory Therapy Assessment DAILY 01/07/19 23:58 BiPap/CPAP ROUTINE Assessment/Plan (1) Non-ST elevation LA (NSTEMI) Current Visit: Yes Status: Acute Assessment & Plan: troponin elevated, no chest pain. plan to transfer to [facility] Under Dr Main Saini Code(s): I21.4 - NON-ST ELEVATION (NSTEMI) MYOCARDIAL INFARCTION (2) Acute on chronic renal insufficiency Current Visit: Yes Status: Acute Assessment & Plan: patient creatinine has also increased. will transfer patient to under Dr Saini at [facility] Code(s): N28.9 - DISORDER OF KIDNEY AND URETER, UNSPECIFIED; N18.9 - CHRONIC KIDNEY DISEASE, UNSPECIFIED (3) Elevated troponin Current Visit: Yes Status: Acute Code(s): R74.8 - ABNORMAL LEVELS OF OTHER SERUM ENZYMES (4) CHF (congestive heart failure) Current Visit: No Status: Acute Code(s): I50.9 - HEART FAILURE, UNSPECIFIED (5) CHF exacerbation Current Visit: No Status: Acute Code(s): I50.9 - HEART FAILURE, UNSPECIFIED (6) Diabetes Current Visit: No Status: Acute Code(s): E11.9 - TYPE 2 DIABETES MELLITUS WITHOUT COMPLICATIONS (7) Coronary artery disease Current Visit: No Status: Chronic Code(s): I25.10 - ATHSCL HEART DISEASE OF [place] CORONARY ARTERY W/O ANG PCTRS (8) Hypertension Current Visit: No Status: Chronic Qualifiers: Hypertension type: essential hypertension Qualified Code(s): I10 - Essential (primary) hypertension Code(s): I10 - ESSENTIAL (PRIMARY) HYPERTENSION Hospital Summary - Hospital Course Hospital Course: Chief Complaint Diagnosis Syncope, Sepsis. Anemia in CKDIV Allergies Allergy/AdvReac Type Severity Reaction Status Date / Time morphine AdvReac Severe Verified 03/26/18 23:50 Vital Signs (Last 24 hours) Temp Pulse Resp BP BP Pulse Ox 01/08/19 08:00 98.7 F 83 24 91/42 92 L 01/08/19 05:40 83 22 93 L 01/08/19 04:00 96.7 F 82 16 98/48 94 L 01/08/19 00:23 97.4 F 80 24 99/58 93 L 01/08/19 00:15 97.4 F 80 24 99/58 99/58 93 L 01/07/19 23:55 82 24 94 L 01/07/19 22:51 97 01/07/19 21:37 81 18 124/63 94 L 01/07/19 20:12 97.6 F 96 H 24 70/51 97 Home Medications Medication Instructions Recorded Confirmed Last Taken Type Acetaminophen [Tylenol] 650 mg PO Q4HPRN PRN 01/07/19 01/07/19 Unknown History Cyclobenzaprine HCl 10 mg PO Q8H PRN PRN 01/07/19 01/07/19 Unknown History Ergocalciferol (Vitamin D2) 50,000 unit PO DAILY 01/07/19 01/07/19 Unknown History [Vitamin D2] Ergocalciferol (Vitamin D2) 50,000 units PO DAILY 01/07/19 01/07/19 Unknown History [Vitamin D2] Escitalopram Oxalate [Lexapro] 5 mg PO DAILY 01/07/19 01/07/19 Unknown History Fluticasone/Vilanterol [Breo 1 puff PO DAILY 01/07/19 01/07/19 Unknown History Ellipta 100-25 Mcg INH] Gabapentin 100 mg PO BID 01/07/19 01/07/19 Unknown History Hum Insulin NPH/Reg Insulin Hm 100 units SQ CLARIFY 01/07/19 01/07/19 Unknown History [Novolin 70-30 100 Unit/ml Vial] HydrALAzine HCL 25 MG TAB 25 mg PO BID 01/07/19 01/07/19 Unknown History [Apresoline 25 MG TABLET] Insulin Aspart [Novolog] 100 units SQ TID PRN PRN 01/07/19 01/07/19 Unknown History Ipratropium/Albuterol Sulfate 3 ml IH Q4HPRN PRN 01/07/19 01/07/19 Unknown History [Iprat-Albut 0.5-3(2.5) mg/3 ml] Ipratropium/Albuterol Sulfate 3 ml IH Q6H 01/07/19 01/07/19 Unknown History [Iprat-Albut 0.5-3(2.5) mg/3 ml] Phenol Liquid [Phenol Ez] 1.4 mg BC Q2H/PRN PRN 01/07/19 01/07/19 Unknown History Torsemide 20 mg [Demadex 20 20 mg PO BID 01/07/19 01/07/19 Unknown History mg] metOLazone [Metolazone] 5 mg PO CLARIFY 01/07/19 01/07/19 Unknown History Current Medications Generic Name Dose Route Start Last Admin Trade Name Colin PRN Reason Stop Dose Admin Acetaminophen 325 mg 01/07/19 23:26 01/08/19 06:14 Tylenol 325 Mg PO 02/06/19 23:25 325 mg Q4H PRN PRN Administration PAIN, FEVER, HEADACHE Albuterol/Ipratropium 3 ml 01/08/19 01:00 01/08/19 05:40 Duoneb 0.5-3 Mg/3 Ml Neb IH 02/07/19 00:59 3 ml Q6HRT CHRISTI Administration Albuterol/Ipratropium 3 ml 01/08/19 05:05 Duoneb 0.5-3 Mg/3 Ml Neb IH 02/07/19 05:04 Q4HPRN PRN SHORTNESS OF BREATH/WHEEZING Enoxaparin Sodium 30 mg 01/08/19 10:00 Enoxaparin Sodium SQ 02/07/19 09:59 DAILY CHRISTI Famotidine 20 mg 01/08/19 10:00 Pepcid 20 Mg PO 02/07/19 09:59 BID CHRISTI Sodium Chloride 1,000 mls @ 150 mls/hr 01/07/19 23:26 01/08/19 06:08 Sodium Chloride 0.9% 1000 Ml IV 02/06/19 23:25 150 mls/hr .Q6H40M CHRISTI Administration Insulin Human Regular 0 unit 01/07/19 23:26 Novolin R SQ 02/06/19 23:25 UD PRN ACCUCHEK Fluticasone/Salmeterol 2 puff 01/08/19 07:00 01/08/19 05:51 Advair Hfa 115/21 Common Canister* IH 02/07/19 06:59 2 puff BIDRT CHRISTI Administration Discontinued Medications Generic Name Dose Route Start Last Admin Trade Name Colin PRN Reason Stop Dose Admin Cefepime HCl Confirm 01/07/19 23:04 Maxipime 1 Gm Administered 01/07/19 23:05 Dose 1 g .ROUTE .STK-MED ONE Sodium Chloride Confirm 01/07/19 20:12 Sodium Chloride 0.9% 1000 Ml Administered 01/07/19 20:13 Dose 1,000 mls @ ud .ROUTE .STK-MED ONE Sodium Chloride 1,000 mls @ 999 mls/hr 01/07/19 20:11 01/07/19 20:34 Sodium Chloride 0.9% 1000 Ml IV 01/07/19 21:11 999 mls/hr .Q1H1M STA Administration Cefepime HCl 1 g/ Sodium 100 mls @ 200 mls/hr 01/07/19 22:47 01/07/19 23:09 Chloride IV 01/07/19 23:16 200 mls/hr STAT STA Administration Sodium Chloride Confirm 01/07/19 23:06 Sodium Chloride 0.9% 100 Ml Ivpb Administered 01/07/19 23:07 Dose 100 mls @ ud IV .STK-MED ONE Intake & Output (Last 24 hours) 01/05/19 01/06/19 01/07/19 01/08/19 11:59 11:59 11:59 11:59 Intake Total 852 Output Total 650 Balance 202 Weight 125.5 kg Microbiology Results (Last 24 hours) 01/07/19 21:30 Clean Catch Midstream Urine Culture - Pending 01/07/19 20:40 Blood Blood Culture Gram Stain - Pending 01/07/19 20:40 Blood Blood Culture - Pending 01/07/19 20:30 Blood Blood Culture Gram Stain - Pending 01/07/19 20:30 Blood Blood Culture - Pending Laboratory Results (Last 24 hours) 01/08/19 01/08/19 01/08/19 08:17 05:25 05:15 WBC RBC Hgb Hct MCV MCH MCHC RDW Plt Count MPV Gran % Eos # (Auto) Absolute Lymphs (auto) Absolute Monos (auto) Lymphocytes % Monocytes % Eosinophils % Basophils % Absolute Granulocytes Basophils # PT INR pO2/FiO2 Ratio VBG pH VBG pCO2 at Pat Temp VBG pO2 at Pat Temp VBG HCO3 VBG O2 Sat (Lauro) VBG Base Excess VBG Hemoglobin VBG Carboxyhemoglobin POC Potassium Sodium 139 Potassium 3.5 Chloride 89 L Carbon Dioxide 39 H Anion Gap 14.5 BUN 143 H Creatinine 2.32 H Estimated GFR 29.4 Glucose 49 L* Lactic Acid 0.9 Calcium 8.9 Magnesium Total Bilirubin AST ALT Alkaline Phosphatase Troponin I 0.392 H* Serum Total Protein Albumin Amylase Lipase Urine Color Urine Appearance Urine pH Ur Specific [place] Urine Protein Urine Ketones Urine Blood Urine Nitrite Urine Bilirubin Urine Urobilinogen Ur Leukocyte Esterase Urine WBC (Auto) Urine RBC (Auto) U Hyaline Cast (Auto) U Epithel Cells (Auto) Urine Bacteria (Auto) Urine Mucus (Auto) Urine Culture Reflexed Urine Glucose Stool Occult Blood Slides for Path Review 01/08/19 01/08/19 01/08/19 05:15 05:15 02:40 WBC 12.4 H RBC 3.19 L Hgb 8.1 L Hct 28.1 L MCV 88.1 MCH 25.3 L MCHC 28.8 L RDW 19.6 H Plt Count 193 MPV 12.7 H Gran % 86.3 H Eos # (Auto) 0.04 Absolute Lymphs (auto) 0.67 L Absolute Monos (auto) 0.98 Lymphocytes % 5.4 L Monocytes % 7.9 Eosinophils % 0.3 Basophils % 0.1 Absolute Granulocytes 10.74 H Basophils # 0.01 PT INR pO2/FiO2 Ratio VBG pH VBG pCO2 at Pat Temp VBG pO2 at Pat Temp VBG HCO3 VBG O2 Sat (Lauro) VBG Base Excess VBG Hemoglobin VBG Carboxyhemoglobin POC Potassium Sodium Potassium Chloride Carbon Dioxide Anion Gap BUN Creatinine Estimated GFR Glucose Lactic Acid Calcium Magnesium Total Bilirubin AST ALT Alkaline Phosphatase Troponin I 0.252 H* 0.115 H* Serum Total Protein Albumin Amylase Lipase Urine Color Urine Appearance Urine pH Ur Specific [place] Urine Protein Urine Ketones Urine Blood Urine Nitrite Urine Bilirubin Urine Urobilinogen Ur Leukocyte Esterase Urine WBC (Auto) Urine RBC (Auto) U Hyaline Cast (Auto) U Epithel Cells (Auto) Urine Bacteria (Auto) Urine Mucus (Auto) Urine Culture Reflexed Urine Glucose Stool Occult Blood Slides for Path Review YES 01/07/19 01/07/19 01/07/19 22:55 22:50 21:40 WBC RBC Hgb Hct MCV MCH MCHC RDW Plt Count MPV Gran % Eos # (Auto) Absolute Lymphs (auto) Absolute Monos (auto) Lymphocytes % Monocytes % Eosinophils % Basophils % Absolute Granulocytes Basophils # PT INR pO2/FiO2 Ratio VBG pH VBG pCO2 at Pat Temp VBG pO2 at Pat Temp VBG HCO3 VBG O2 Sat (Luaro) VBG Base Excess VBG Hemoglobin VBG Carboxyhemoglobin POC Potassium Sodium Potassium Chloride Carbon Dioxide Anion Gap BUN Creatinine Estimated GFR Glucose Lactic Acid 1.7 Calcium Magnesium Total Bilirubin AST ALT Alkaline Phosphatase Troponin I 0.072 H* Serum Total Protein Albumin Amylase Lipase Urine Color Urine Appearance Urine pH Ur Specific [place] Urine Protein Urine Ketones Urine Blood Urine Nitrite Urine Bilirubin Urine Urobilinogen Ur Leukocyte Esterase Urine WBC (Auto) Urine RBC (Auto) U Hyaline Cast (Auto) U Epithel Cells (Auto) Urine Bacteria (Auto) Urine Mucus (Auto) Urine Culture Reflexed Urine Glucose Stool Occult Blood NEGATIVE Slides for Path Review 01/07/19 01/07/19 01/07/19 21:10 20:40 20:40 WBC RBC Hgb Hct MCV MCH MCHC RDW Plt Count MPV Gran % Eos # (Auto) Absolute Lymphs (auto) Absolute Monos (auto) Lymphocytes % Monocytes % Eosinophils % Basophils % Absolute Granulocytes Basophils # PT INR pO2/FiO2 Ratio 36.0 VBG pH 7.40 VBG pCO2 at Pat Temp 68 H* VBG pO2 at Pat Temp 41 H VBG HCO3 42.1 H* VBG O2 Sat (Lauro) 84.0 L VBG Base Excess 15.3 H VBG Hemoglobin 8.4 VBG Carboxyhemoglobin 6.8 POC Potassium 3.7 Sodium Potassium Chloride Carbon Dioxide Anion Gap BUN Creatinine Estimated GFR Glucose Lactic Acid 4.3 H Calcium Magnesium Total Bilirubin AST ALT Alkaline Phosphatase Troponin I Serum Total Protein Albumin Amylase Lipase Urine Color YELLOW Urine Appearance SLIGHTLY CLOUDY Urine pH 5.0 Ur Specific [place] 1.011 Urine Protein NEGATIVE Urine Ketones NEGATIVE Urine Blood LARGE Urine Nitrite NEGATIVE Urine Bilirubin NEGATIVE Urine Urobilinogen NEGATIVE Ur Leukocyte Esterase NEGATIVE Urine WBC (Auto) 0-2 Urine RBC (Auto) >101 U Hyaline Cast (Auto) 11-25 U Epithel Cells (Auto) NONE Urine Bacteria (Auto) RARE Urine Mucus (Auto) SLIGHT Urine Culture Reflexed ORDERED SEPARATELY Urine Glucose NEGATIVE Stool Occult Blood Slides for Path Review 01/07/19 01/07/19 01/07/19 20:30 20:30 20:30 WBC RBC Hgb Hct MCV MCH MCHC RDW Plt Count MPV Gran % Eos # (Auto) Absolute Lymphs (auto) Absolute Monos (auto) Lymphocytes % Monocytes % Eosinophils % Basophils % Absolute Granulocytes Basophils # PT 13.8 H INR 1.22 pO2/FiO2 Ratio VBG pH VBG pCO2 at Pat Temp VBG pO2 at Pat Temp VBG HCO3 VBG O2 Sat (Lauro) VBG Base Excess VBG Hemoglobin VBG Carboxyhemoglobin POC Potassium Sodium Potassium Chloride Carbon Dioxide Anion Gap BUN Creatinine Estimated GFR Glucose Lactic Acid Calcium Magnesium 2.0 Total Bilirubin AST ALT Alkaline Phosphatase Troponin I 0.073 H* Serum Total Protein Albumin Amylase Lipase Urine Color Urine Appearance Urine pH Ur Specific [place] Urine Protein Urine Ketones Urine Blood Urine Nitrite Urine Bilirubin Urine Urobilinogen Ur Leukocyte Esterase Urine WBC (Auto) Urine RBC (Auto) U Hyaline Cast (Auto) U Epithel Cells (Auto) Urine Bacteria (Auto) Urine Mucus (Auto) Urine Culture Reflexed Urine Glucose Stool Occult Blood Slides for Path Review 01/07/19 01/07/19 20:30 20:30 WBC 13.3 H RBC 3.23 L Hgb 8.3 L Hct 28.8 L MCV 89.2 MCH 25.6 L MCHC 28.8 L RDW 19.5 H Plt Count 198 MPV 12.3 H Gran % 88.5 H Eos # (Auto) 0.05 Absolute Lymphs (auto) 0.41 L Absolute Monos (auto) 1.03 Lymphocytes % 3.1 L Monocytes % 7.8 Eosinophils % 0.4 Basophils % 0.2 Absolute Granulocytes 11.74 H Basophils # 0.02 PT INR pO2/FiO2 Ratio VBG pH VBG pCO2 at Pat Temp VBG pO2 at Pat Temp VBG HCO3 VBG O2 Sat (Lauro) VBG Base Excess VBG Hemoglobin VBG Carboxyhemoglobin POC Potassium Sodium 137 Potassium 3.9 Chloride 86 L Carbon Dioxide 40 H Anion Gap 15.4 H BUN 141 H Creatinine 2.49 H Estimated GFR 27.1 Glucose 70 L Lactic Acid Calcium 8.8 Magnesium Total Bilirubin 0.70 AST 30 ALT 19 Alkaline Phosphatase 107 Troponin I Serum Total Protein 7.2 Albumin 3.6 Amylase 61 Lipase 22 L Urine Color Urine Appearance Urine pH Ur Specific [place] Urine Protein Urine Ketones Urine Blood Urine Nitrite Urine Bilirubin Urine Urobilinogen Ur Leukocyte Esterase Urine WBC (Auto) Urine RBC (Auto) U Hyaline Cast (Auto) U Epithel Cells (Auto) Urine Bacteria (Auto) Urine Mucus (Auto) Urine Culture Reflexed Urine Glucose Stool Occult Blood Slides for Path Review YES Orders (Last 24 hours) Category Date Time Status Up With Assistance Q8H Activity 01/07/19 23:26 Active Accucheck ACHS Care 01/07/19 23:26 Active Chute Feeder STAT Care 01/07/19 20:13 Completed Catheter-[place] ROUTINE Care 01/07/19 23:26 Active Code Status Order ROUTINE Care 01/07/19 23:26 Active EKG-ER Only STAT Care 01/07/19 20:11 Completed IV Insertion STAT Care 01/07/19 20:[address] in Observation ROUTINE Care 01/07/19 23:26 Active Saline Lock ROUTINE Care 01/07/19 23:26 Completed Telemetry q6h Care 01/07/19 23:26 Active Weight,Daily 0600 Care 01/07/19 23:26 Active Infection Control Consult Cons 01/08/19 01:21 Active Customer Service Trainer/Discharge Plan Cons 01/08/19 01:21 Active Nutritional Admission Screen Diet 01/08/19 01:21 Active CHEST 1 VIEW (PORTABLE) Routine Exams 01/08/19 08:00 Completed CHEST 1 VIEW (PORTABLE) Stat Exams 01/07/19 20:12 Completed HEAD WITHOUT CONTRAST [CT] Stat Exams 01/07/19 20:14 Completed AMYLASE Stat Lab 01/07/19 20:30 Completed BLOOD CULTURE Stat Lab 01/07/19 20:40 Received BMP AM.LAB Lab 01/08/19 05:15 Completed CBC W DIFF AM.LAB Lab 01/08/19 05:15 Completed CBC W DIFF Stat Lab 01/07/19 20:30 Completed CMP Stat Lab 01/07/19 20:30 Completed CULTURE,URINE Stat Lab 01/07/19 21:30 Received LIPASE Stat Lab 01/07/19 20:30 Completed Lactic Acid AM.LAB Lab 01/08/19 05:25 Completed Lactic Acid Stat Lab 01/07/19 20:40 Completed Lactic Acid Stat Lab 01/07/19 22:50 Completed MAGNESIUM Stat Lab 01/07/19 20:30 Completed Occult Blood, Other Screening Stat Lab 01/07/19 21:40 Completed PROTIME WITH INR Stat Lab 01/07/19 20:30 Completed TROPONIN Q3H Lab 01/07/19 20:30 Completed TROPONIN Q3H Lab 01/07/19 22:55 Completed TROPONIN Q3H Lab 01/08/19 02:40 Completed TROPONIN Q3H Lab 01/08/19 05:15 Completed TROPONIN Q3H Lab 01/08/19 08:17 Completed UA W/RFX UR CULTURE Stat Lab 01/07/19 21:10 Completed VENOUS BLOOD GAS Stat Lab 01/07/19 20:40 Completed Acetaminophen 325 mg [Tylenol 325 mg] Med 01/07/19 23:26 Active 325 mg PO Q4H PRN PRN Albuterol/Ipratropium 3ml Neb* [DUONEB 0.5-3 MG/3 ml Med 01/08/19 05:05 Active Neb] 3 ml IH Q4HPRN PRN Albuterol/Ipratropium 3ml Neb* [DUONEB 0.5-3 MG/3 ml Med 01/08/19 01:00 Active Neb] 3 ml IH Q6HRT Cefepime HCl 1 gm [Maxipime 1 gm] Med 01/07/19 23:04 Discontinued 1 g .ROUTE .STK-MED ONE Cefepime HCl 1 gm [Maxipime 1 gm] 1 g Med 01/07/19 22:47 Discontinued NaCl 0.9% 100Ml [Sodium Chloride 0.9% 100 ML IVPB] 100 ml IV STAT Enoxaparin Sodium [Enoxaparin Sodium] Med 01/08/19 10:00 Active 30 mg SQ DAILY Famotidine 20 mg [Pepcid 20 MG] Med 01/08/19 10:00 Active 20 mg PO BID Fluticasone/Salmeterol 115/21 [Advair Hfa 115/21 Common Med 01/08/19 07:00 Active canister*] 2 puff IH BIDRT Insulin Regular, Human [NovoLIN R] Med 01/07/19 23:26 Active See Dose Instructions SQ UD PRN NaCl 0.9% 1000 ml [Sodium Chloride 0.9% 1000 ML] 1,000 Med 01/07/19 20:12 Discontinued ml .ROUTE UD NaCl 0.9% 1000 ml [Sodium Chloride 0.9% 1000 ML] 1,000 Med 01/07/19 23:26 Active ml IV 150 mls/hr NaCl 0.9% 1000 ml [Sodium Chloride 0.9% 1000 ML] 1,000 Med 01/07/19 20:11 Discontinued ml IV 999 mls/hr NaCl 0.9% 100Ml [Sodium Chloride 0.9% 100 ML IVPB] 100 Med 01/07/19 23:06 Discontinued ml IV UD OT Screen per Nursing Assess OT 01/08/19 01:21 Active PT Eval & Treat ( Order) ROUTINE PT 01/07/19 23:26 Active BiPap/CPAP ROUTINE RT 01/07/19 23:58 Active EKG PRN RT 01/07/19 23:26 Active Oxygen Nasal Cannula 4 lpm RT 01/07/19 23:26 Active Peak Expiratory Flow Rate ONCE RT 01/07/19 23:54 Active Pulse Oximetry .continuos RT 01/07/19 23:54 Active RT Screen per Nursing Assess ONCE RT 01/08/19 01:21 Completed Respiratory Therapy Assessment DAILY RT 01/07/19 23:54 Active Patient Care Notes (Last 24 hours) 01/08/19 07:29 Nursing Note by Zoie Roldan Lab called to advise patient glucose level was 50. Rechecked with monitor on floor with a result of 62. Patient given milk and cheese crackers. Initialized on 01/08/19 07:29 - END OF NOTE 01/08/19 03:42 Nursing Note by Zoie Roldan Called critical troponin level of 0.[address] Dias. No new orders received. Initialized on 01/08/19 03:42 - END OF NOTE 01/08/19 01:36 Nursing Note by Zoie Roldan Admission skin assessment: 1. Bilateral lower extremities noted to be dressed with ABD pads, gauze roll and coban to secure. Dressings are not dated. shelter records indicate patient has several venous statis ulcerations. Dressings left in place at this time to PT to eval / treat. 2. Gaulding below right abdominal fold, area cleansed and dried. 3. Medial sacrum - scar tissue, healed pressure injury 4. Coccyx - suspected Deep tissue injury, barrier cream applied 5. Left elbow skin tear approx [id number]<0.1cm. Area cleansed, applied telfa dressing and secured with janice wrapl 6. Multiple bruises - Left upper arm, left upper back, right upper arm, right thigh Initialized on 01/08/19 01:36 - END OF NOTE 01/08/19 00:10 (created 01/08/19 01:46) Nursing Note by Zoie Roldan Called [facility], advised by nurse there patient has had all PM meds. Unsure of when flu vaccine administered. Initialized on 01/08/19 01:46 - END OF NOTE - Vitals & Intake/Output Vital Signs: Vital Signs Temperature 98.7 F 01/08/19 08:00 Pulse Rate 83 01/08/19 08:00 Respiratory Rate 24 01/08/19 08:00 Blood Pressure 91/42 01/08/19 08:00 O2 Sat by Pulse Oximetry 92 L 01/08/19 08:00 Oxygen-Last Documented O2 Percentage 6 Liters = 44% Intake & Output: Intake & Output 01/05/19 01/06/19 01/07/19 01/08/19 11:59 11:59 11:59 11:59 Intake Total 852 Output Total 650 Balance 202 Weight 125.5 kg - Lab Result Diagrams: 01/08/19 05:15 01/08/19 05:15 Lab Results-Last 24 Hrs: Accuchecks Date 01/08/19 Time 06:45 Accucheck Value: 62 Lab Results-Last 24 Hours 01/07/19 01/07/19 01/07/19 Range/Units 20:30 20:30 20:30 WBC 13.3 H (4.0-10.5) K/mm3 RBC 3.23 L (4.1-5.6) M/mm3 Hgb 8.3 L (12.5-18.0) gm/dl Hct 28.8 L (42-50) % MCV 89.2 (78-100) fl MCH 25.6 L (26-32) pg MCHC 28.8 L (32-36) g/dl RDW 19.5 H (11.5-14.0) % Plt Count 198 (150-450) K/mm3 MPV 12.3 H (6-9.5) fl Gran % 88.5 H (36.0-66.0) % Eos # (Auto) 0.05 (0-0.5) Absolute Lymphs (auto) 0.41 L (1.0-4.6) Absolute Monos (auto) 1.03 (0.0-1.3) Lymphocytes % 3.1 L (24.0-44.0) % Monocytes % 7.8 (0.0-12.0) % Eosinophils % 0.4 (0.00-5.0) % Basophils % 0.2 (0.0-0.4) % Absolute Granulocytes 11.74 H (1.4-6.9) Basophils # 0.02 (0-0.4) PT 13.8 H (8.83-12.87) SECONDS INR 1.22 (0.8-3.0) pO2/FiO2 Ratio % VBG pH (7.32-7.42) VBG pCO2 at Pat Temp (42-55) mm/Hg VBG pO2 at Pat Temp (25-40) mm/Hg VBG HCO3 (22-28) meq/L VBG O2 Sat (Lauro) (95-100) VBG Base Excess (-2.0-2.0) VBG Hemoglobin VBG Carboxyhemoglobin (0.0-6.9) % T HGB POC Potassium (3.5-5.1) Sodium 137 (137-145) mmol/L Potassium 3.9 (3.5-5.1) mmol/L Chloride 86 L (98-107) mmol/L Carbon Dioxide 40 H (22-30) mmol/L Anion Gap 15.4 H (5-15) MEQ/L BUN 141 H (9-20) mg/dL Creatinine 2.49 H (0.66-1.25) mg/dL Estimated GFR 27.1 ML/MIN Glucose 70 L (74-106) mg/dL Lactic Acid (0.4-2.0) Calcium 8.8 (8.4-10.2) mg/dL Magnesium (1.6-2.3) mg/dL Total Bilirubin 0.70 (0.2-1.3) mg/dL AST 30 (17-59) U/L ALT 19 (0-50) U/L Alkaline Phosphatase 107 (38-126) U/L Troponin I (0.000-0.034) ng/mL Serum Total Protein 7.2 (6.3-8.2) g/dL Albumin 3.6 (3.5-5.0) g/dL Amylase 61 (30-110) U/L Lipase 22 L (23-300) U/L Urine Color (YELLOW) Urine Appearance (CLEAR) Urine pH (5-6) Ur Specific [place] (1.005-1.025) Urine Protein (Negative) Urine Ketones (NEGATIVE) Urine Blood (0-5) Timi/ul Urine Nitrite (NEGATIVE) Urine Bilirubin (NEGATIVE) Urine Urobilinogen (0-1) mg/dL Ur Leukocyte Esterase (NEGATIVE) Urine WBC (Auto) (0-5) /HPF Urine RBC (Auto) (0-2) /HPF U Hyaline Cast (Auto) (0-2) /LPF U Epithel Cells (Auto) (FEW) /HPF Urine Bacteria (Auto) (NEGATIVE) /HPF Urine Mucus (Auto) (NEGATIVE) /HPF Urine Culture Reflexed (NO) Urine Glucose (NEGATIVE) mg/dL Stool Occult Blood (Negative) Slides for Path Review YES 01/07/19 01/07/19 01/07/19 Range/Units 20:30 20:30 20:40 WBC (4.0-10.5) K/mm3 RBC (4.1-5.6) M/mm3 Hgb (12.5-18.0) gm/dl Hct (42-50) % MCV (78-100) fl MCH (26-32) pg MCHC (32-36) g/dl RDW (11.5-14.0) % Plt Count (150-450) K/mm3 MPV (6-9.5) fl Gran % (36.0-66.0) % Eos # (Auto) (0-0.5) Absolute Lymphs (auto) (1.0-4.6) Absolute Monos (auto) (0.0-1.3) Lymphocytes % (24.0-44.0) % Monocytes % (0.0-12.0) % Eosinophils % (0.00-5.0) % Basophils % (0.0-0.4) % Absolute Granulocytes (1.4-6.9) Basophils # (0-0.4) PT (8.83-12.87) SECONDS INR (0.8-3.0) pO2/FiO2 Ratio % VBG pH (7.32-7.42) VBG pCO2 at Pat Temp (42-55) mm/Hg VBG pO2 at Pat Temp (25-40) mm/Hg VBG HCO3 (22-28) meq/L VBG O2 Sat (Lauro) (95-100) VBG Base Excess (-2.0-2.0) VBG Hemoglobin VBG Carboxyhemoglobin (0.0-6.9) % T HGB POC Potassium (3.5-5.1) Sodium (137-145) mmol/L Potassium (3.5-5.1) mmol/L Chloride (98-107) mmol/L Carbon Dioxide (22-30) mmol/L Anion Gap (5-15) MEQ/L BUN (9-20) mg/dL Creatinine (0.66-1.25) mg/dL Estimated GFR ML/MIN Glucose (74-106) mg/dL Lactic Acid 4.3 H (0.4-2.0) Calcium (8.4-10.2) mg/dL Magnesium 2.0 (1.6-2.3) mg/dL Total Bilirubin (0.2-1.3) mg/dL AST (17-59) U/L ALT (0-50) U/L Alkaline Phosphatase (38-126) U/L Troponin I 0.073 H* (0.000-0.034) ng/mL Serum Total Protein (6.3-8.2) g/dL Albumin (3.5-5.0) g/dL Amylase (30-110) U/L Lipase (23-300) U/L Urine Color (YELLOW) Urine Appearance (CLEAR) Urine pH (5-6) Ur Specific [place] (1.005-1.025) Urine Protein (Negative) Urine Ketones (NEGATIVE) Urine Blood (0-5) Tim[place]/ul Urine Nitrite (NEGATIVE) Urine Bilirubin (NEGATIVE) Urine Urobilinogen (0-1) mg/dL Ur Leukocyte Esterase (NEGATIVE) Urine WBC (Auto) (0-5) /HPF Urine RBC (Auto) (0-2) /HPF U Hyaline Cast (Auto) (0-2) /LPF U Epithel Cells (Auto) (FEW) /HPF Urine Bacteria (Auto) (NEGATIVE) /HPF Urine Mucus (Auto) (NEGATIVE) /HPF Urine Culture Reflexed (NO) Urine Glucose (NEGATIVE) mg/dL Stool Occult Blood (Negative) Slides for Path Review 01/07/19 01/07/19 01/07/19 Range/Units 20:40 21:10 21:40 WBC (4.0-10.5) K/mm3 RBC (4.1-5.6) M/mm3 Hgb (12.5-18.0) gm/dl Hct (42-50) % MCV (78-100) fl MCH (26-32) pg MCHC (32-36) g/dl RDW (11.5-14.0) % Plt Count (150-450) K/mm3 MPV (6-9.5) fl Gran % (36.0-66.0) % Eos # (Auto) (0-0.5) Absolute Lymphs (auto) (1.0-4.6) Absolute Monos (auto) (0.0-1.3) Lymphocytes % (24.0-44.0) % Monocytes % (0.0-12.0) % Eosinophils % (0.00-5.0) % Basophils % (0.0-0.4) % Absolute Granulocytes (1.4-6.9) Basophils # (0-0.4) PT (8.83-12.87) SECONDS INR (0.8-3.0) pO2/FiO2 Ratio 36.0 % VBG pH 7.40 (7.32-7.42) VBG pCO2 at Pat Temp 68 H* (42-55) mm/Hg VBG pO2 at Pat Temp 41 H (25-40) mm/Hg VBG HCO3 42.1 H* (22-28) meq/L VBG O2 Sat (Lauro) 84.0 L (95-100) VBG Base Excess 15.3 H (-2.0-2.0) VBG Hemoglobin 8.4 VBG Carboxyhemoglobin 6.8 (0.0-6.9) % T HGB POC Potassium 3.7 (3.5-5.1) Sodium (137-145) mmol/L Potassium (3.5-5.1) mmol/L Chloride (98-107) mmol/L Carbon Dioxide (22-30) mmol/L Anion Gap (5-15) MEQ/L BUN (9-20) mg/dL Creatinine (0.66-1.25) mg/dL Estimated GFR ML/MIN Glucose (74-106) mg/dL Lactic Acid (0.4-2.0) Calcium (8.4-10.2) mg/dL Magnesium (1.6-2.3) mg/dL Total Bilirubin (0.2-1.3) mg/dL AST (17-59) U/L ALT (0-50) U/L Alkaline Phosphatase (38-126) U/L Troponin I (0.000-0.034) ng/mL Serum Total Protein (6.3-8.2) g/dL Albumin (3.5-5.0) g/dL Amylase (30-110) U/L Lipase (23-300) U/L Urine Color YELLOW (YELLOW) Urine Appearance SLIGHTLY CLOUDY (CLEAR) Urine pH 5.0 (5-6) Ur Specific [place] 1.011 (1.005-1.025) Urine Protein NEGATIVE (Negative) Urine Ketones NEGATIVE (NEGATIVE) Urine Blood LARGE (0-5) Timi/ul Urine Nitrite NEGATIVE (NEGATIVE) Urine Bilirubin NEGATIVE (NEGATIVE) Urine Urobilinogen NEGATIVE (0-1) mg/dL Ur Leukocyte Esterase NEGATIVE (NEGATIVE) Urine WBC (Auto) 0-2 (0-5) /HPF Urine RBC (Auto) >101 (0-2) /HPF U Hyaline Cast (Auto) 11-25 (0-2) /LPF U Epithel Cells (Auto) NONE (FEW) /HPF Urine Bacteria (Auto) RARE (NEGATIVE) /HPF Urine Mucus (Auto) SLIGHT (NEGATIVE) /HPF Urine Culture Reflexed ORDERED SEPARATELY (NO) Urine Glucose NEGATIVE (NEGATIVE) mg/dL Stool Occult Blood NEGATIVE (Negative) Slides for Path Review 01/07/19 01/07/19 01/08/19 Range/Units 22:50 22:55 02:40 WBC (4.0-10.5) K/mm3 RBC (4.1-5.6) M/mm3 Hgb (12.5-18.0) gm/dl Hct (42-50) % MCV (78-100) fl MCH (26-32) pg MCHC (32-36) g/dl RDW (11.5-14.0) % Plt Count (150-450) K/mm3 MPV (6-9.5) fl Gran % (36.0-66.0) % Eos # (Auto) (0-0.5) Absolute Lymphs (auto) (1.0-4.6) Absolute Monos (auto) (0.0-1.3) Lymphocytes % (24.0-44.0) % Monocytes % (0.0-12.0) % Eosinophils % (0.00-5.0) % Basophils % (0.0-0.4) % Absolute Granulocytes (1.4-6.9) Basophils # (0-0.4) PT (8.83-12.87) SECONDS INR (0.8-3.0) pO2/FiO2 Ratio % VBG pH (7.32-7.42) VBG pCO2 at Pat Temp (42-55) mm/Hg VBG pO2 at Pat Temp (25-40) mm/Hg VBG HCO3 (22-28) meq/L VBG O2 Sat (Lauro) (95-100) VBG Base Excess (-2.0-2.0) VBG Hemoglobin VBG Carboxyhemoglobin (0.0-6.9) % T HGB POC Potassium (3.5-5.1) Sodium (137-145) mmol/L Potassium (3.5-5.1) mmol/L Chloride (98-107) mmol/L Carbon Dioxide (22-30) mmol/L Anion Gap (5-15) MEQ/L BUN (9-20) mg/dL Creatinine (0.66-1.25) mg/dL Estimated GFR ML/MIN Glucose (74-106) mg/dL Lactic Acid 1.7 (0.4-2.0) Calcium (8.4-10.2) mg/dL Magnesium (1.6-2.3) mg/dL Total Bilirubin (0.2-1.3) mg/dL AST (17-59) U/L ALT (0-50) U/L Alkaline Phosphatase (38-126) U/L Troponin I 0.072 H* 0.115 H* (0.000-0.034) ng/mL Serum Total Protein (6.3-8.2) g/dL Albumin (3.5-5.0) g/dL Amylase (30-110) U/L Lipase (23-300) U/L Urine Color (YELLOW) Urine Appearance (CLEAR) Urine pH (5-6) Ur Specific [place] (1.005-1.025) Urine Protein (Negative) Urine Ketones (NEGATIVE) Urine Blood (0-5) Tim[place]/ul Urine Nitrite (NEGATIVE) Urine Bilirubin (NEGATIVE) Urine Urobilinogen (0-1) mg/dL Ur Leukocyte Esterase (NEGATIVE) Urine WBC (Auto) (0-5) /HPF Urine RBC (Auto) (0-2) /HPF U Hyaline Cast (Auto) (0-2) /LPF U Epithel Cells (Auto) (FEW) /HPF Urine Bacteria (Auto) (NEGATIVE) /HPF Urine Mucus (Auto) (NEGATIVE) /HPF Urine Culture Reflexed (NO) Urine Glucose (NEGATIVE) mg/dL Stool Occult Blood (Negative) Slides for Path Review 01/08/19 01/08/19 01/08/19 Range/Units 05:15 05:15 05:15 WBC 12.4 H (4.0-10.5) K/mm3 RBC 3.19 L (4.1-5.6) M/mm3 Hgb 8.1 L (12.5-18.0) gm/dl Hct 28.1 L (42-50) % MCV 88.1 (78-100) fl MCH 25.3 L (26-32) pg MCHC 28.8 L (32-36) g/dl RDW 19.6 H (11.5-14.0) % Plt Count 193 (150-450) K/mm3 MPV 12.7 H (6-9.5) fl Gran % 86.3 H (36.0-66.0) % Eos # (Auto) 0.04 (0-0.5) Absolute Lymphs (auto) 0.67 L (1.0-4.6) Absolute Monos (auto) 0.98 (0.0-1.3) Lymphocytes % 5.4 L (24.0-44.0) % Monocytes % 7.9 (0.0-12.0) % Eosinophils % 0.3 (0.00-5.0) % Basophils % 0.1 (0.0-0.4) % Absolute Granulocytes 10.74 H (1.4-6.9) Basophils # 0.01 (0-0.4) PT (8.83-12.87) SECONDS INR (0.8-3.0) pO2/FiO2 Ratio % VBG pH (7.32-7.42) VBG pCO2 at Pat Temp (42-55) mm/Hg VBG pO2 at Pat Temp (25-40) mm/Hg VBG HCO3 (22-28) meq/L VBG O2 Sat ([place]) (95-100) VBG Base Excess (-2.0-2.0) VBG Hemoglobin VBG Carboxyhemoglobin (0.0-6.9) % T HGB POC Potassium (3.5-5.1) Sodium 139 (137-145) mmol/L Potassium 3.5 (3.5-5.1) mmol/L Chloride 89 L (98-107) mmol/L Carbon Dioxide 39 H (22-30) mmol/L Anion Gap 14.5 (5-15) MEQ/L BUN 143 H (9-20) mg/dL Creatinine 2.32 H (0.66-1.25) mg/dL Estimated GFR 29.4 ML/MIN Glucose 49 L* (74-106) mg/dL Lactic Acid (0.4-2.0) Calcium 8.9 (8.4-10.2) mg/dL Magnesium (1.6-2.3) mg/dL Total Bilirubin (0.2-1.3) mg/dL AST (17-59) U/L ALT (0-50) U/L Alkaline Phosphatase (38-126) U/L Troponin I 0.252 H* (0.000-0.034) ng/mL Serum Total Protein (6.3-8.2) g/dL Albumin (3.5-5.0) g/dL Amylase (30-110) U/L Lipase (23-300) U/L Urine Color (YELLOW) Urine Appearance (CLEAR) Urine pH (5-6) Ur Specific [place] (1.005-1.025) Urine Protein (Negative) Urine Ketones (NEGATIVE) Urine Blood (0-5) [place]/ul Urine Nitrite (NEGATIVE) Urine Bilirubin (NEGATIVE) Urine Urobilinogen (0-1) mg/dL Ur Leukocyte Esterase (NEGATIVE) Urine WBC (Auto) (0-5) /HPF Urine RBC (Auto) (0-2) /HPF U Hyaline Cast (Auto) (0-2) /LPF U Epithel Cells (Auto) (FEW) /HPF Urine Bacteria (Auto) (NEGATIVE) /HPF Urine Mucus (Auto) (NEGATIVE) /HPF Urine Culture Reflexed (NO) Urine Glucose (NEGATIVE) mg/dL Stool Occult Blood (Negative) Slides for Path Review YES 01/08/19 01/08/19 Range/Units 05:25 08:17 WBC (4.0-10.5) K/mm3 RBC (4.1-5.6) M/mm3 Hgb (12.5-18.0) gm/dl Hct (42-50) % MCV (78-100) fl MCH (26-32) pg MCHC (32-36) g/dl RDW (11.5-14.0) % Plt Count (150-450) K/mm3 MPV (6-9.5) fl Gran % (36.0-66.0) % Eos # (Auto) (0-0.5) Absolute Lymphs (auto) (1.0-4.6) Absolute Monos (auto) (0.0-1.3) Lymphocytes % (24.0-44.0) % Monocytes % (0.0-12.0) % Eosinophils % (0.00-5.0) % Basophils % (0.0-0.4) % Absolute Granulocytes (1.4-6.9) Basophils # (0-0.4) PT (8.83-12.87) SECONDS INR (0.8-3.0) pO2/FiO2 Ratio % VBG pH (7.32-7.42) VBG pCO2 at Pat Temp (42-55) mm/Hg VBG pO2 at Pat Temp (25-40) mm/Hg VBG HCO3 (22-28) meq/L VBG O2 Sat ([place]) (95-100) VBG Base Excess (-2.0-2.0) VBG Hemoglobin VBG Carboxyhemoglobin (0.0-6.9) % T HGB POC Potassium (3.5-5.1) Sodium (137-145) mmol/L Potassium (3.5-5.1) mmol/L Chloride (98-107) mmol/L Carbon Dioxide (22-30) mmol/L Anion Gap (5-15) MEQ/L BUN (9-20) mg/dL Creatinine (0.66-1.25) mg/dL Estimated GFR ML/MIN Glucose (74-106) mg/dL Lactic Acid 0.9 (0.4-2.0) Calcium (8.4-10.2) mg/dL Magnesium (1.6-2.3) mg/dL Total Bilirubin (0.2-1.3) mg/dL AST (17-59) U/L ALT (0-50) U/L Alkaline Phosphatase (38-126) U/L Troponin I 0.392 H* (0.000-0.034) ng/mL Serum Total Protein (6.3-8.2) g/dL Albumin (3.5-5.0) g/dL Amylase (30-110) U/L Lipase (23-300) U/L Urine Color (YELLOW) Urine Appearance (CLEAR) Urine pH (5-6) Ur Specific [place] (1.005-1.025) Urine Protein (Negative) Urine Ketones (NEGATIVE) Urine Blood (0-5) [place] Urine Nitrite (NEGATIVE) Urine Bilirubin (NEGATIVE) Urine Urobilinogen (0-1) mg/dL Ur Leukocyte Esterase (NEGATIVE) Urine WBC (Auto) (0-5) /HPF Urine RBC (Auto) (0-2) /HPF U Hyaline Cast (Auto) (0-2) /LPF U Epithel Cells (Auto) (FEW) /HPF Urine Bacteria (Auto) (NEGATIVE) /HPF Urine Mucus (Auto) (NEGATIVE) /HPF Urine Culture Reflexed (NO) Urine Glucose (NEGATIVE) mg/dL Stool Occult Blood (Negative) Slides for Path Review Micro Results-Entire Visit: Accuchecks Date 01/08/19 Time 06:45 Accucheck Value: 62 - Radiology Exams Ordered Rad Exams-Entire Visit: Radiology Procedures Category Date Time Status CHEST 1 VIEW (PORTABLE) Routine Exams 01/08/19 08:00 Completed CHEST 1 VIEW (PORTABLE) Stat Exams 01/07/19 20:12 Completed HEAD WITHOUT CONTRAST [CT] Stat Exams 01/07/19 20:14 Completed - Procedures and Test Procedures and Tests throughout Hospitalization: Therapy Orders & Screens 01/07/19 23:26 PT Eval & Treat ( Order) ROUTINE Reason for Eval:: Weakness in ambulating, start of decubitus ulcer due to lack of movement Diagnosis: Syncope EKG PRN Comment: Oxygen Nasal Cannula 4 lpm Comment: 01/07/19 23:54 Peak Expiratory Flow Rate ONCE Comment: Reason For Exam: Diagnosis: Syncope Respiratory Therapy Assessment DAILY Comment: Diagnosis: Syncope 01/07/19 23:58 BiPap/CPAP ROUTINE Comment: Diagnosis: Syncope 01/08/19 01:21 OT Screen per Nursing Assess Comment: Protocol Order Physician Instructions: Greater than 3 points order OT Admission Screening Reason For Exam: Triggered on Admission Diagnosis: Syncope, Sepsis. Anemia in CKDIV Open Wound/Cellutlitis/Pressure Ulcers: Yes Acute Fx/ORIF/Change in wt bearing status: No Severe MUSCULOSKELETAL pain: No ADL Dysfunction: No Acute CVA w/Hemiparesis/Hemiplegia: No Decreased Functional Mobility/Strength: Yes Sprain/Strain: No Acute Post-op Mobility Dysfunction: No Total Points: 6 RT Screen per Nursing Assess ONCE Comment: Protocol Order Physician Instructions: Greater than 3 points order RT Admission Screen Reason For Exam: Triggered on Admission Diagnosis: Syncope, Sepsis. Anemia in CKDIV Diagnosis: Syncope, Sepsis. Anemia in CKDIV Pneumonia: No Home O2: Yes Asthma: No CHF: Yes Home CPAP/BIPAP: Yes Home Nebs/MDI: Yes Total Points: 18 - Discharge Discharge Date: 01/08/19 Disposition: DC TO [facility] Condition: Stable Prescriptions: Continue Isosorbide Mononitrate [Imdur] 30 mg PO DAILY Clopidogrel Bisulfate 75 mg [PLAVIX 75 MG Tablet] 75 mg PO DAILY Atorvastatin Calcium 40 mg PO HS Magnesium Oxide [Magnesium] 400 mg PO BID Tamsulosin HCl 0.4 mg [Flomax 0.4 MG] 0.4 mg PO DAILY Metformin HCl 500 mg [Glucophage 500 MG] 500 mg PO BIDWM Nitroglycerin 0.4 mg (Ed) [Nitrostat 0.4 MG (ED)] 0.4 mg SL UD PRN PRN Reason: Chest Pain Allopurinol 100 mg [Zyloprim 100 mg] 1 tab PO BID Docusate Sodium 100 mg PO DAILY PRN PRN PRN Reason: Constipation Loperamide HCl 2 mg [Imodium 2 mg] 1 tab PO Q4HPRN PRN PRN Reason: Diarrhea Carvedilol 12.5 mg PO BID Ergocalciferol (Vitamin D2) [Vitamin D2] 50,000 unit PO DAILY metOLazone [Metolazone] 5 mg PO CLARIFY Torsemide 20 mg [Demadex 20 mg] 20 mg PO BID Phenol Liquid [Phenol Ez] 1.4 mg BC Q2H/PRN PRN PRN Reason: sore throat Ipratropium/Albuterol Sulfate [Iprat-Albut 0.5-3(2.5) mg/3 ml] 3 ml IH Q6H Ipratropium/Albuterol Sulfate [Iprat-Albut 0.5-3(2.5) mg/3 ml] 3 ml IH Q4HPRN PRN PRN Reason: Shortness Of Breath Insulin Aspart [Novolog] 100 units SQ TID PRN PRN PRN Reason: Elevated Blood Pressure HydrALAzine HCL 25 MG TAB [Apresoline 25 MG TABLET] 25 mg PO BID Hum Insulin NPH/Reg Insulin Hm [Novolin 70-30 100 Unit/ml Vial] 100 units SQ CLARIFY Gabapentin 100 mg PO BID Fluticasone/Vilanterol [Breo Ellipta 100-25 Mcg INH] 1 puff PO DAILY Escitalopram Oxalate [Lexapro] 5 mg PO DAILY Ergocalciferol (Vitamin D2) [Vitamin D2] 50,000 units PO DAILY Cyclobenzaprine HCl 10 mg PO Q8H PRN PRN PRN Reason: Muscle Spasms Acetaminophen [Tylenol] 650 mg PO Q4HPRN PRN PRN Reason: temp Follow up with: JENI DIAS MD [ACTIVE STAFF] - 1 Week
[2019-01-08] MEDS ORDERED: IMODIUM 2 MG PO PRN (09:49)
[2019-01-08] MEDS ORDERED: Colace 100 MG PO PRN (09:49)
[2019-01-08] MEDS ORDERED: NovoLOG Insulin SQ PRN (09:49)
[2019-01-08] MEDS ORDERED: Nitrostat 0.4 MG (ED) SL PRN (09:49)
[2019-01-08] MEDS ORDERED: PHENOL BC PRN (09:49)
[2019-01-08] MEDS ORDERED: CYCLOBENZAPRINE HCL 10 MG PO PRN (09:49)
[2019-01-08] MEDS ORDERED: Nitrostat 0.4 MG Tablet SL PRN (09:57)
[2019-01-08] MEDS ORDERED: Cyclobenzaprine 10 MG PO PRN (10:00)
[2019-01-08] MEDS ORDERED: Novolin 70/30 SQ SCH (10:00)
[2019-01-08] MEDS ORDERED: VITAMIN D2 PO SCH (10:00)
[2019-01-08] MEDS ORDERED: Lexapro 10 MG PO SCH (10:00)
[2019-01-08] MEDS ORDERED: TYLENOL 325 MG PO PRN (10:00)
[2019-01-08] MEDS ORDERED: Imdur 30 MG PO SCH (10:00)
[2019-01-08] MEDS ORDERED: NON-FORMULARY ITEM (Magnesium Oxide [Magnesium] 400 MG) PO SCH (10:00)
[2019-01-08] MEDS ORDERED: PLAVIX 75 MG Tablet PO SCH (10:00)
[2019-01-08] MEDS ORDERED: DEMADEX 20 MG PO SCH (10:00)
[2019-01-08] MEDS ORDERED: Neurontin 100 MG PO SCH (10:00)
[2019-01-08] MEDS ORDERED: Zaroxolyn 2.5 MG PO SCH (10:00)
[2019-01-08] MEDS ORDERED: MAG-OX 400 PO SCH (10:00)
[2019-01-08] MEDS ORDERED: ENOXAPARIN SODIUM SQ SCH (10:00)
[2019-01-08] MEDS ORDERED: Flomax 0.4 MG PO SCH (10:00)
[2019-01-08] MEDS ORDERED: Apresoline 25 MG TABLET PO SCH (10:00)
[2019-01-08] MEDS ORDERED: Pepcid 20 MG PO SCH (10:00)
[2019-01-08] MEDS ORDERED: ZYLOPRIM 100 MG PO SCH (10:00)
[2019-01-08] MEDS ORDERED: COREG 12.5 MG PO SCH (10:00)
[2019-01-08] MEDS ORDERED: CHLORASEPTIC SPRAY 180 ML PO PRN (10:01)
[2019-01-08 12:50] VITALS: BP 107/50; O2SAT 96
[2019-01-08] MEDS ORDERED: Glucophage 500 MG PO SCH (17:00)
[2019-01-08] MEDS ORDERED: ZOCOR 20MG PO SCH (22:00)
== END 2019-01-08 13:59 | disposition home or self-care (01) ==
LOC: ED 20:04 → MED SURG 23:19
PROVIDERS: ADMIT General Practice; ATTEND General Practice
DX: I21.4 Non-ST elevation (NSTEMI) myocardial infarction (principal); J44.9 Chronic obstructive pulmonary disease, unspecified; I50.9 Heart failure, unspecified; I13.0 Hypertensive heart and chronic kidney disease with heart failure and stage 1 through stage 4 chronic kidney disease, or unspecified chronic kidney disease; E11.22 Type 2 diabetes mellitus with diabetic chronic kidney disease; E78.00 Pure hypercholesterolemia, unspecified; I25.10 Atherosclerotic heart disease of native coronary artery without angina pectoris; Z79.01 Long term (current) use of anticoagulants; Z79.899 Other long term (current) drug therapy
CPT/HCPCS: 36000; 36415; 51702; 70450; 71045; 80048; 80053; 81001; 82150; 82272; 82805; 82962; 83036; 83605; 83690; 83735; 84484; 85025; 85610; 87040; 87086; 93005; 93041; 93268; 94002; 94003; 94150; 94640; 94762; 96360; 96365; 99285; G0378; J0692; A9270-GY